=== PATIENT | female | born 1950 | race Caucasian/White ===

== ENCOUNTER 2018-11-26 11:36 | Observation (INO) ==
[2018-11-26 12:22] LABS: Basophils # 0.1 K/mcL (0.0-0.2); Basophils % 0.6 %; Eosinophils % 0.1 %; Hematocrit 42.3 % (35.3-44.9); Hemoglobin 13.8 g/dL (11.5-15.4); Immature Granulocytes % 0.4 % (0-4); Lymphocytes # 0.6 K/mcL (0.6-4.6); Lymphocytes % 7.8 %; Mean Corpuscular HGB Conc 32.6 g/dL (31.6-35.5); Mean Corpuscular Hemoglobin 29.1 pg (28.0-33.3); Mean Corpuscular Volume 89.2 fL (83.0-100.0); Mean Platelet Volume 11.1 fL (9.4-12.4); Monocytes # 0.2 K/mcL (0.0-1.3); Monocytes % 2.2 %; Neutrophils # 7.3 K/mcL (1.6-8.9); Platelet Count 210 K/mcL (140-400); Red Blood Count 4.74 M/mcL (3.82-4.97); Red Cell Distribution Width 12.5 % (11.5-14.5); Segmented Neutrophils % 88.9 %
[2018-11-26 12:29] LABS: VBG HCO3 17 mEq/L (21-27); VBG PCO2 39 mmHg (41-51); VBG PH 7.24 pH Units (7.32-7.42); VBG PO2 49 mmHg (25-50)
[2018-11-26 12:42] LABS: Alanine Aminotransferase 26 Units/L (7-52); Albumin 4.2 g/dL (3.5-5.7); Albumin/Globulin Ratio 1.8 (1.1-2.2); Alkaline Phosphatase 137 Units/L (34-104); Aspartate Amino Transferase 16 Units/L (13-39); BUN/Creatinine Ratio 28 (6-26); Bilirubin,Total 0.7 mg/dL (0.3-1.0); Blood Urea Nitrogen 25 mg/dL (8-23); Calcium 9.5 mg/dL (8.6-10.3); Carbon Dioxide 16 mEq/L (23-29); Chloride 98 mEq/L (98-107); Globulin 2.3 g/dL (2.4-3.5); Glucose 491 mg/dL (70-105); Osmolality,Calculated 302 (280-300); Phosphorous 4.4 mg/dL (2.7-4.5); Potassium 4.4 mEq/L (3.5-5.1); Sodium 133 mEq/L (136-145); Total Protein 6.5 g/dL (6.4-8.9); eGFR For Non-African Americans > 60 (> 60)
--- NOTE | 2018-11-26 12:45 | Emergency Department Note ---
Disposition Clinical Impression: DKA (diabetic ketoacidoses) Qualifiers: Diabetes mellitus type: other specified (including BLU) Diabetes mellitus complication detail: without coma Qualified Code(s): E13.10 - Other specified diabetes mellitus with ketoacidosis without coma Disposition: Admitted As Inpatient Condition: Fair Referrals: Tianna Brown CNP [Primary Care Provider] - Forms: ED Satisfaction Letter Time of Disposition: 16:49 General Adult HPI - General Chief complaint: ED Nausea/Vomiting/Diarrhea Stated complaint: high blood sugar Time Seen by Provider: 11/26/18 11:46 Source: patient, family Mode of arrival: private vehicle Limitations: no limitations Nursing Notes Reviewed: Yes Vital Signs Reviewed: Yes - History of Present Illness HPI Narrative: Patient is a 68-year-old female who was diagnosed with diabetes in 1995 and manages her diabetes with an insulin pump. Patient woke up this morning and noticed that her insulin pump was disconnected as it had become disconnected sometime throughout the night. Patient notes that she felt nauseated and has vomited 3 times since then and when she checked her sugar at home she noted that it was somewhere in the 500s. Patient states that she had a mild upper respiratory infection sometime within the last 2 weeks although she is feeling better she still has a very mild dry cough. Patient is denying any chest pain, shortness of breath, weakness, headache. Patient states that since her diagnosis over 20 years ago she has only had to be hospitalized 3 times for her diabetes.PT STATES SHE IS ALLERGIC TO HUMALOG AND CAN ONLY HAVE NOVOLOG. Pain Scale: 0 - Related Data Home Medications Medication Instructions Recorded Confirmed Insulin ASPART [NovoLOG] 100 unit SQ DAILY 04/22/15 09/04/18 ALPRAZolam [Xanax 0.25 MG Tablet] 0.25 mg PO DAILY PRN 11/26/18 11/26/18 Alendronate Sodium [Fosamax] 70 mg PO WE 11/26/18 11/26/18 Calcium Carbonate/Vitamin D3 1 each PO BID 11/26/18 11/26/18 [Calcium 500 + Vit D 200 Caplet] Cyanocobalamin/Folic AC/Vit B6 1 each PO DAILY 11/26/18 11/26/18 [[place] Tablet] Lisinopril [Zestril] 5 mg PO DAILY 11/26/18 11/26/18 Montelukast [Singulair] 10 mg PO DAILY@1800 11/26/18 11/26/18 Pantoprazole Sodium [Protonix] 20 mg PO DAILY 11/26/18 11/26/18 Simvastatin [Zocor] 40 mg PO HS 11/26/18 11/26/18 Allergies Allergy/AdvReac Type Severity Reaction Status Date / Time cephalexin Allergy Difficulty Verified 09/04/18 17:35 Breathing codeine Allergy Nausea Verified 09/04/18 17:35 egg Allergy Vomiting Verified 09/04/18 17:35 Penicillins Allergy Rash Verified 09/04/18 17:35 insulin lispro AdvReac Rash Verified 11/26/18 13:27 [From Humalog Mix] insulin lispro protamine AdvReac Rash Verified 11/26/18 13:27 [From Humalog Mix] Constitutional: Denies: fever, chills Eyes: Denies: eye pain ENT ED: Denies: ear pain, throat pain Cardiovascular: Denies: chest pain, palpitations Respiratory: Reports: cough. Denies: dyspnea, wheezes Gastrointestinal: Reports: nausea, vomiting. Denies: abdominal pain, diarrhea, constipation Genitourinary: Reports: frequency. Denies: urgency, dysuria Musculoskeletal: Denies: back pain, neck pain Integumentary: Denies: rash, abrasion Neurological: Reports: headache. Denies: weakness, numbness Psychiatric: Denies: anxiety, depression Endocrine: Denies: fatigue, heat or cold intolerance Hematological/Lymphatic: Denies: easy bleeding, easy bruising Allergic/Immunologic: Denies: facial swelling, urticaria Past Medical History - Past Medical History Medical history: Reports: diabetes, hypertension Surgical history: Reports: non-contributory Psychiatric history: Reports: no psych history REGIONAL TELECOMMUNICATIONS SPECIALIST history: Reports: no REGIONAL TELECOMMUNICATIONS SPECIALIST history - Social History Smoking Status: Never smoker Smokeless Tobacco Status: No Alcohol use: Reports: none Drug use: Reports: none Physical Exam - General Limitations: no limitations General appearance: alert, in no apparent distress - Head Head exam: atraumatic, normocephalic - Eye Eye exam: Present: normal appearance, PERRL, EOMI - ENT ENT exam: normal exam, normal oropharynx - Neck Neck exam: Present: normal inspection, full ROM - Chest Chest inspection: Present: normal inspection, symmetric chest wall rise. Absent: tenderness - Respiratory Respiratory exam: Present: normal lung sounds bilaterally, respiratory distress. Absent: wheezes - Cardiovascular Cardiovascular exam: Present: regular rate, normal rhythm - Abdominal Exam Abdominal exam: Present: soft, Non-Tender. Absent: tenderness, distention, guarding, rebound - Extremities Exam Extremities exam: Present: normal inspection, full ROM - Back Exam Back exam: Present: normal inspection, full ROM - Neurological Exam Neurological exam: Present: alert, oriented X3 - Psychiatric Psychiatric exam: Present: normal affect, normal mood - Skin Skin exam: Present: warm, dry, intact Course Course Narrative: Concern for DKA/HHS, will obtain CBC, BMP, beta-hydroxyburtyrate, renal function panel, LFTs, extended electrolytes, will place IV. Suspect admission. - Reevaluation(s) Reevaluation #1: bedside glucose 298. Pt currently receiving IVF, already received oral potassium and zofran. Time: 15:00 Reevaluation #2: After speaking with foot doctor Dr. Armstrong, he did not believe this patient required ICU level care and recommended that she be admitted to step-down on 2N. Spoke again with hospitalist Dr. Sierra who requested that we start an insulin drip, however the patient is allergic to humalog and those derivatives so will defer insulin management to primary team. Did order repeat BMP. Time: 16:47 Vital Signs Temperature 97.8 F 11/26/18 11:40 Pulse Rate 116 11/26/18 11:40 Respiratory Rate 20 11/26/18 11:40 Blood Pressure 180/115 11/26/18 11:40 O2 Sat by Pulse Oximetry 95 11/26/18 11:40 Temperature 97.8 F 11/26/18 11:40 Pulse Rate 77 11/26/18 15:20 Respiratory Rate 17 11/26/18 15:20 Blood Pressure 121/52 11/26/18 15:20 O2 Sat by Pulse Oximetry 93 11/26/18 15:20 Oxygen Delivery Oxygen Delivery Room Air Medical Decision Making - MDM Narrative Medical decision making narrative: Pt initially presented with blood sugar 530 measured bedside and VBG measured pH 7.24 with BMP showing anion gap of 19. Pt was started on 2L NaCl and given 40mEq of oral potassium and repeat BMP ordered. Initial potassium was 4.4 and insulin drip requires potassium of >4.5. Spoke with hospitalist who wanted ICU level care. Spoke with foot doctor Dr. Armstrong who did not believe this patient required ICU level care and suggested step-down unit. Spoke again with hospitalist Dr Sierra who agreed to take the patient but wanted an insulin drip started, declined insulin drip but did order repeat BMP. Please note, pt is allergic to humalog insulin and our insulin drip contains humalog. Spoke with patient and family at bedside who verbalized understanding and agreement with the plan. Pt was given an opportunity to ask questions and all of her concerns were addressed. Pt remained stable while in the department, talkative, with appropriate mental status. - Medical Records Medical records reviewed: Yes I reviewed the patient's medical records. - Lab Data Lab results reviewed: Yes I reviewed the patient's lab results. Result diagrams: 11/26/18 12:13 11/26/18 12:13 Lab Results 11/26/18 11/26/18 11/26/18 Range/Units 12:13 12:13 12:13 WBC 8.2 (4.3-11.1) K/mcL RBC 4.74 (3.82-4.97) M/mcL Hgb 13.8 (11.5-15.4) g/dL Hct 42.3 (35.3-44.9) % MCV 89.2 (83.0-100.0) fL MCH 29.1 (28.0-33.3) pg MCHC 32.6 (31.6-35.5) g/dL RDW 12.5 (11.5-14.5) % Plt Count 210 (140-400) K/mcL MPV 11.1 (9.4-12.4) fL Immature Gran % 0.4 (0-4) % Seg Neutrophils % 88.9 % Lymphocytes % 7.8 % Monocytes % 2.2 % Eosinophils % 0.1 % Basophils % 0.6 % Neutrophils # 7.3 (1.6-8.9) K/mcL Lymphocytes # 0.6 (0.6-4.6) K/mcL Monocytes # 0.2 (0.0-1.3) K/mcL Eosinophils # 0.0 (0.0-0.6) K/mcL Basophils # 0.1 (0.0-0.2) K/mcL VBG pH (7.32-7.42) pH Units VBG pCO2 (41-51) mmHg VBG pO2 (25-50) mmHg VBG HCO3 (21-27) mEq/L Sodium 133 L (136-145) mEq/L Potassium 4.4 (3.5-5.1) mEq/L Chloride 98 (98-107) mEq/L Carbon Dioxide 16 L (23-29) mEq/L BUN 25 H (8-23) mg/dL Creatinine 0.89 (0.60-1.20) mg/dL Est GFR ( Amer) > 60 (> 60) Est GFR (Non-Af Amer) > 60 (> 60) BUN/Creatinine Ratio 28 H (6-26) Glucose 491 H (70-105) mg/dL Calculated Osmolality 302 H (280-300) Lactic Acid 2.2 (0.5-2.2) mmol/L Calcium 9.5 (8.6-10.3) mg/dL Phosphorus 4.4 (2.7-4.5) mg/dL Magnesium 2.0 (1.6-2.6) mg/dL Total Bilirubin 0.7 (0.3-1.0) mg/dL AST 16 (13-39) Units/L ALT 26 (7-52) Units/L Alkaline Phosphatase 137 H (34-104) Units/L Serum Total Protein 6.5 (6.4-8.9) g/dL Albumin 4.2 (3.5-5.7) g/dL Globulin 2.3 L (2.4-3.5) g/dL Albumin/Globulin Ratio 1.8 (1.1-2.2) Beta-Hydroxybutyric Acd (0.02-0.27) mmol/L Urine Color (Yellow) Urine Clarity (Clear) Urine pH (5.0-8.0) pH Units Ur Specific [place] (1.010-1.025) Urine Protein (Neg-Trace) mg/dL Urine Glucose (UA) (Normal) mg/dL Urine Ketones (Negative) mg/dL Urine Blood (Negative) Urine Nitrite (Negative) Urine Bilirubin (Negative) Urine Urobilinogen (Normal) mg/dL Ur Leukocyte Esterase (Negative) 11/26/18 11/26/18 11/26/18 Range/Units 12:13 12:25 15:40 WBC (4.3-11.1) K/mcL RBC (3.82-4.97) M/mcL Hgb (11.5-15.4) g/dL Hct (35.3-44.9) % MCV (83.0-100.0) fL MCH (28.0-33.3) pg MCHC (31.6-35.5) g/dL RDW (11.5-14.5) % Plt Count (140-400) K/mcL MPV (9.4-12.4) fL Immature Gran % (0-4) % Seg Neutrophils % % Lymphocytes % % Monocytes % % Eosinophils % % Basophils % % Neutrophils # (1.6-8.9) K/mcL Lymphocytes # (0.6-4.6) K/mcL Monocytes # (0.0-1.3) K/mcL Eosinophils # (0.0-0.6) K/mcL Basophils # (0.0-0.2) K/mcL VBG pH 7.24 L (7.32-7.42) pH Units VBG pCO2 39 L (41-51) mmHg VBG pO2 49 (25-50) mmHg VBG HCO3 17 L (21-27) mEq/L Sodium (136-145) mEq/L Potassium (3.5-5.1) mEq/L Chloride (98-107) mEq/L Carbon Dioxide (23-29) mEq/L BUN (8-23) mg/dL Creatinine (0.60-1.20) mg/dL Est GFR ( Amer) (> 60) Est GFR (Non-Af Amer) (> 60) BUN/Creatinine Ratio (6-26) Glucose (70-105) mg/dL Calculated Osmolality (280-300) Lactic Acid (0.5-2.2) mmol/L Calcium (8.6-10.3) mg/dL Phosphorus (2.7-4.5) mg/dL Magnesium (1.6-2.6) mg/dL Total Bilirubin (0.3-1.0) mg/dL AST (13-39) Units/L ALT (7-52) Units/L Alkaline Phosphatase (34-104) Units/L Serum Total Protein (6.4-8.9) g/dL Albumin (3.5-5.7) g/dL Globulin (2.4-3.5) g/dL Albumin/Globulin Ratio (1.1-2.2) Beta-Hydroxybutyric Acd > 2.00 H (0.02-0.27) mmol/L Urine Color Yellow (Yellow) Urine Clarity Clear (Clear) Urine pH 5.0 (5.0-8.0) pH Units Ur Specific [place] > 1.030 H (1.010-1.025) Urine Protein Trace (Neg-Trace) mg/dL Urine Glucose (UA) >=1000 H (Normal) mg/dL Urine Ketones >=160 H (Negative) mg/dL Urine Blood Negative (Negative) Urine Nitrite Negative (Negative) Urine Bilirubin Negative (Negative) Urine Urobilinogen Normal (Normal) mg/dL Ur Leukocyte Esterase Negative (Negative) 11/26/18 Range/Units 15:54 WBC (4.3-11.1) K/mcL RBC (3.82-4.97) M/mcL Hgb (11.5-15.4) g/dL Hct (35.3-44.9) % MCV (83.0-100.0) fL MCH (28.0-33.3) pg MCHC (31.6-35.5) g/dL RDW (11.5-14.5) % Plt Count (140-400) K/mcL MPV (9.4-12.4) fL Immature Gran % (0-4) % Seg Neutrophils % % Lymphocytes % % Monocytes % % Eosinophils % % Basophils % % Neutrophils # (1.6-8.9) K/mcL Lymphocytes # (0.6-4.6) K/mcL Monocytes # (0.0-1.3) K/mcL Eosinophils # (0.0-0.6) K/mcL Basophils # (0.0-0.2) K/mcL VBG pH (7.32-7.42) pH Units VBG pCO2 (41-51) mmHg VBG pO2 (25-50) mmHg VBG HCO3 (21-27) mEq/L Sodium (136-145) mEq/L Potassium (3.5-5.1) mEq/L Chloride (98-107) mEq/L Carbon Dioxide (23-29) mEq/L BUN (8-23) mg/dL Creatinine (0.60-1.20) mg/dL Est GFR ( Amer) (> 60) Est GFR (Non-Af Amer) (> 60) BUN/Creatinine Ratio (6-26) Glucose (70-105) mg/dL Calculated Osmolality (280-300) Lactic Acid 1.8 (0.5-2.2) mmol/L Calcium (8.6-10.3) mg/dL Phosphorus (2.7-4.5) mg/dL Magnesium (1.6-2.6) mg/dL Total Bilirubin (0.3-1.0) mg/dL AST (13-39) Units/L ALT (7-52) Units/L Alkaline Phosphatase (34-104) Units/L Serum Total Protein (6.4-8.9) g/dL Albumin (3.5-5.7) g/dL Globulin (2.4-3.5) g/dL Albumin/Globulin Ratio (1.1-2.2) Beta-Hydroxybutyric Acd (0.02-0.27) mmol/L Urine Color (Yellow) Urine Clarity (Clear) Urine pH (5.0-8.0) pH Units Ur Specific [place] (1.010-1.025) Urine Protein (Neg-Trace) mg/dL Urine Glucose (UA) (Normal) mg/dL Urine Ketones (Negative) mg/dL Urine Blood (Negative) Urine Nitrite (Negative) Urine Bilirubin (Negative) Urine Urobilinogen (Normal) mg/dL Ur Leukocyte Esterase (Negative)
--- NOTE | 2018-11-26 12:53 | Emergency Department Note ---
Disposition Clinical Impression: DKA (diabetic ketoacidoses) Qualifiers: Diabetes mellitus type: type 1 Diabetes mellitus complication detail: without coma Qualified Code(s): E10.10 - Type 1 diabetes mellitus with ketoacidosis without coma Disposition: Admitted As Inpatient Condition: Good Referrals: Tianna Brown CNP [Primary Care Provider] - Forms: ED Satisfaction Letter General Adult HPI - General Chief complaint: ED Nausea/Vomiting/Diarrhea Stated complaint: high blood sugar Time Seen by Provider: 11/26/18 11:46 Source: patient, family Mode of arrival: private vehicle Limitations: no limitations Nursing Notes Reviewed: Yes Vital Signs Reviewed: Yes - History of Present Illness HPI Narrative: Attestation note: Patient was seen with the emergency medicine resident/nurse practitioner/physician program services assistant/transitional resident/medical student: Dr. YUAN STINSON I have personally performed a face to face evaluation on this patient. I have reviewed and agree with history and physical examination patient management and disposition. Briefly the salient points of the case are as follows: 68-year-old female insulin-dependent diabetic usually is no insulin pump became disconnected last night has been feeling poorly for the past few days dry oral mucosa. Some vo miting no fever or chills or dysuria no new shortness breath or chest pain. Patient had laboratory studies confirming the presence of diabetic ketoacidosis Of 19, pH of the broad of 7.29. Patient will undergo DKA management with IV fluid rehydration and potassium supplementation insulin drip at the appropriate time and admission. Provided 45 minutes of critical care for this patient. Pain Scale: 0 - Related Data Home Medications Medication Instructions Recorded Confirmed Insulin ASPART [NovoLOG] 100 unit SQ DAILY 04/22/15 09/04/18 Omeprazole [PriLOSEC] 20 mg PO DAILY 08/17/16 09/04/18 Simvastatin [Zocor] 10 mg PO DAILY 08/19/18 09/04/18 Previous Rx's Medication Instructions Recorded Albuterol Sulfate [Albuterol 2 puff IH QID #1 inhaler 09/04/18 Inhaler] Benzonatate [Tessalon] 200 mg PO TID PRN #20 capsule 09/04/18 Levofloxacin [Levaquin] 750 mg PO DAILY #7 tablet 09/04/18 predniSONE [PredniSONE] 20 mg PO BID #10 tablet 09/04/18 Allergies Allergy/AdvReac Type Severity Reaction Status Date / Time cephalexin Allergy Difficulty Verified 09/04/18 17:35 Breathing codeine Allergy Nausea Verified 09/04/18 17:35 egg Allergy Vomiting Verified 09/04/18 17:35 Penicillins Allergy Rash Verified 09/04/18 17:35 Constitutional: Denies: fever, chills Eyes: Denies: eye pain ENT ED: Denies: ear pain, throat pain Cardiovascular: Denies: chest pain, palpitations Respiratory: Reports: cough. Denies: dyspnea, wheezes Gastrointestinal: Reports: nausea, vomiting. Denies: abdominal pain, diarrhea, constipation Genitourinary: Reports: frequency. Denies: urgency, dysuria Musculoskeletal: Denies: back pain, neck pain Integumentary: Denies: rash, abrasion Neurological: Reports: headache. Denies: weakness, numbness Psychiatric: Denies: anxiety, depression Endocrine: Denies: fatigue, heat or cold intolerance Hematological/Lymphatic: Denies: easy bleeding, easy bruising Allergic/Immunologic: Denies: facial swelling, urticaria Past Medical History - Past Medical History Medical history: Reports: diabetes, hypertension Surgical history: Reports: non-contributory Psychiatric history: Reports: no psych history DENTAL DIRECTOR history: Reports: no DENTAL DIRECTOR history - Social History Smoking Status: Never smoker Smokeless Tobacco Status: No Alcohol use: Reports: none Drug use: Reports: none Physical Exam - General Limitations: no limitations General appearance: alert, in no apparent distress Course Vital Signs Temperature 97.8 F 11/26/18 11:40 Pulse Rate 116 11/26/18 11:40 Respiratory Rate 20 11/26/18 11:40 Blood Pressure 180/115 11/26/18 11:40 O2 Sat by Pulse Oximetry 95 11/26/18 11:40 Temperature 97.8 F 11/26/18 11:40 Pulse Rate 116 11/26/18 11:40 Respiratory Rate 20 11/26/18 11:40 Blood Pressure 180/115 11/26/18 11:40 O2 Sat by Pulse Oximetry 95 11/26/18 11:40 Oxygen Delivery Oxygen Delivery Room Air Medical Decision Making - Lab Data Result diagrams: 11/26/18 12:13 11/26/18 12:13 Lab Results 11/26/18 11/26/18 11/26/18 Range/Units 12:13 12:13 12:13 WBC 8.2 (4.3-11.1) K/mcL RBC 4.74 (3.82-4.97) M/mcL Hgb 13.8 (11.5-15.4) g/dL Hct 42.3 (35.3-44.9) % MCV 89.2 (83.0-100.0) fL MCH 29.1 (28.0-33.3) pg MCHC 32.6 (31.6-35.5) g/dL RDW 12.5 (11.5-14.5) % Plt Count 210 (140-400) K/mcL MPV 11.1 (9.4-12.4) fL Immature Gran % 0.4 (0-4) % Seg Neutrophils % 88.9 % Lymphocytes % 7.8 % Monocytes % 2.2 % Eosinophils % 0.1 % Basophils % 0.6 % Neutrophils # 7.3 (1.6-8.9) K/mcL Lymphocytes # 0.6 (0.6-4.6) K/mcL Monocytes # 0.2 (0.0-1.3) K/mcL Eosinophils # 0.0 (0.0-0.6) K/mcL Basophils # 0.1 (0.0-0.2) K/mcL VBG pH (7.32-7.42) pH Units VBG pCO2 (41-51) mmHg VBG pO2 (25-50) mmHg VBG HCO3 (21-27) mEq/L Sodium 133 L (136-145) mEq/L Potassium 4.4 (3.5-5.1) mEq/L Chloride 98 (98-107) mEq/L Carbon Dioxide 16 L (23-29) mEq/L BUN 25 H (8-23) mg/dL Creatinine 0.89 (0.60-1.20) mg/dL Est GFR ( Amer) > 60 (> 60) Est GFR (Non-Af Amer) > 60 (> 60) BUN/Creatinine Ratio 28 H (6-26) Glucose 491 H (70-105) mg/dL Calculated Osmolality 302 H (280-300) Lactic Acid 2.2 (0.5-2.2) mmol/L Calcium 9.5 (8.6-10.3) mg/dL Phosphorus 4.4 (2.7-4.5) mg/dL Magnesium 2.0 (1.6-2.6) mg/dL Total Bilirubin 0.7 (0.3-1.0) mg/dL AST 16 (13-39) Units/L ALT 26 (7-52) Units/L Alkaline Phosphatase 137 H (34-104) Units/L Serum Total Protein 6.5 (6.4-8.9) g/dL Albumin 4.2 (3.5-5.7) g/dL Globulin 2.3 L (2.4-3.5) g/dL Albumin/Globulin Ratio 1.8 (1.1-2.2) Beta-Hydroxybutyric Acd (0.02-0.27) mmol/L 11/26/18 11/26/18 Range/Units 12:13 12:25 WBC (4.3-11.1) K/mcL RBC (3.82-4.97) M/mcL Hgb (11.5-15.4) g/dL Hct (35.3-44.9) % MCV (83.0-100.0) fL MCH (28.0-33.3) pg MCHC (31.6-35.5) g/dL RDW (11.5-14.5) % Plt Count (140-400) K/mcL MPV (9.4-12.4) fL Immature Gran % (0-4) % Seg Neutrophils % % Lymphocytes % % Monocytes % % Eosinophils % % Basophils % % Neutrophils # (1.6-8.9) K/mcL Lymphocytes # (0.6-4.6) K/mcL Monocytes # (0.0-1.3) K/mcL Eosinophils # (0.0-0.6) K/mcL Basophils # (0.0-0.2) K/mcL VBG pH 7.24 L (7.32-7.42) pH Units VBG pCO2 39 L (41-51) mmHg VBG pO2 49 (25-50) mmHg VBG HCO3 17 L (21-27) mEq/L Sodium (136-145) mEq/L Potassium (3.5-5.1) mEq/L Chloride (98-107) mEq/L Carbon Dioxide (23-29) mEq/L BUN (8-23) mg/dL Creatinine (0.60-1.20) mg/dL Est GFR ( Amer) (> 60) Est GFR (Non-Af Amer) (> 60) BUN/Creatinine Ratio (6-26) Glucose (70-105) mg/dL Calculated Osmolality (280-300) Lactic Acid (0.5-2.2) mmol/L Calcium (8.6-10.3) mg/dL Phosphorus (2.7-4.5) mg/dL Magnesium (1.6-2.6) mg/dL Total Bilirubin (0.3-1.0) mg/dL AST (13-39) Units/L ALT (7-52) Units/L Alkaline Phosphatase (34-104) Units/L Serum Total Protein (6.4-8.9) g/dL Albumin (3.5-5.7) g/dL Globulin (2.4-3.5) g/dL Albumin/Globulin Ratio (1.1-2.2) Beta-Hydroxybutyric Acd > 2.00 H (0.02-0.27) mmol/L
[2018-11-26] MEDS ORDERED: Ondansetron ODT 4 MG TAB.RAPDIS SL ONE (12:54)
[2018-11-26] MEDS ORDERED: Potassium Effervescent 25 MEQ TABLET.EFF PO ONE (12:55)
[2018-11-26] MEDS: 0.9 % Sodium Chloride 1,000 ML IVC SCH ×2 (13:34→15:19)
[2018-11-26 16:01] LABS: Bilirubin,Urine Negative (Negative); Blood,Urine Negative (Negative); Clarity,Urine Clear (Clear); Color,Urine Yellow (Yellow); Glucose,Urine (UA) >=1000 mg/dL (Normal); Ketones,Urine >=160 mg/dL (Negative); Leukocyte Esterase,Urine Negative (Negative); Nitrite,Urine Negative (Negative); Protein,Urine Trace mg/dL (Neg-Trace); Specific Gravity,Urine > 1.030 (1.010-1.025); Urobilinogen,Urine Normal (Normal)
[2018-11-26] MEDS ORDERED: Naloxone 0.4 MG/ML INJ IVP PRN (17:25)
[2018-11-26] MEDS ORDERED: Ondansetron ODT 4 MG TAB.RAPDIS SL PRN (17:25)
[2018-11-26] MEDS ORDERED: Acetaminophen 325 MG TABLET PO PRN (17:25)
[2018-11-26] MEDS ORDERED: *HR* Dextrose 50 % in Water (Syg) 50 ML SYRINGE IVP PRN ×2 (17:27→17:56)
[2018-11-26] MEDS ORDERED: D5% in 0.45% NACL w KCl 20 MEQ/1,000 ML MLS IVC PRN (17:27)
[2018-11-26] MEDS ORDERED: Insulin Regular, Human 100 UNIT/ML IV PRN ×2 (17:27→22:27)
[2018-11-26] MEDS ORDERED: Insulin Human Regular 100 UNIT in 0.9 % Sodium Chloride 100 ML IVC SCH (17:30)
[2018-11-26] MEDS ORDERED: 0.9 % Sodium Chloride w KCl 20 MEQ/1,000 ML MLS IVC SCH (17:30)
[2018-11-26] MEDS ORDERED: ALPRAZolam 0.25 MG TABLET PO PRN (17:30)
[2018-11-26] MEDS ORDERED: 0.9 % Sodium Chloride 1,000 ML IVC SCH (17:30)
[2018-11-26 17:34] LABS: BUN/Creatinine Ratio 30 (6-26); Blood Urea Nitrogen 20 mg/dL (8-23); Calcium 8.6 mg/dL (8.6-10.3); Carbon Dioxide 22 mEq/L (23-29); Chloride 107 mEq/L (98-107); Glucose 188 mg/dL (70-105); Osmolality,Calculated 292 (280-300); Potassium 4.5 mEq/L (3.5-5.1); Sodium 137 mEq/L (136-145); eGFR For Non-African Americans > 60 (> 60)
--- NOTE | 2018-11-26 17:39 | Internal Med History&Physical ---
<Guerda Petersen M - Last Filed: 11/26/18 18:32> Date of Encounter: 11/26/18 Time of Encounter: 17:33 Internal Medicine - H&P: HPI Chief complaint: elayne Admitted From: Home Plans for Post Hospital Care: Home History of present illness: Ms. Greenwood is a 68 year old female is type 1 DM presents for nausea and vomiting after she awoke to find insulin pump disconnected and blood gluoce near 600 . She reports malaise and nausea thus gave herself insulin injection and improved. Later in day nausea became worse and vomited but denies abdominal pain. She tried to fix insulin pump herself and when unable called PCP who instructed her to present to ED. Denies associated symptoms of confusion, dizziness, syncope or thirst. She is hungry and request food. On presentation to ED afebrile, tachycardia 116 resolved to 86, tachynea 20 to 16, and 180/50 to 120/52 with more stable vitals on recheck. Found to be hyp onatremia 113, CO2 16, Potassium 2.2, and Glucose 491. Elevated beta hydrpbutyric acid greater than 2 and VBG with ph of 7.24. UA with positive glucose and ketones. Lactic acid 2.2 to 1.8. Essentially normal CBC. Received one liter bolus IVF and potassium 25 meq. She follows with [facility]- patient reports allergic reaction to Humalog (lispro) of rash, nausea and vomiting instructed by PCP not to take but regularlly uses Novolong(aspart) - she doesn't remember ever using humilin. PMHx of asthma and GERD. One EMANUEL of renal protection but reports no history of HTN. Family Hx of CHF in father who was just discharged from [facility] today. Recent illness of PNA treated with abx in October but reports symptoms resolved with out shortness of breath and cough at baseline with occasional coughing fits at night. Per review of record out patient patient requires average of 40 u apart per day with pump and is non adherent to diet Past Med Surg Social Fam HX - Past Medical History Medical history: diabetes, hypertension Additional medical history: carpel tunnel surgery needs done but A1C too high Psychiatric history: no psych history - Past Surgical History Surgical History: non-contributory - Social History Smoking Status: Never smoker Smokeless Tobacco Status: No Alcohol use: none Drug use: none Internal Medicine - H&P: Meds Insulin ASPART [NovoLOG] 0 unit SQ DAILY 04/22/15 [History] ALPRAZolam [Xanax 0.25 MG Tablet] 0.25 mg PO DAILY PRN 11/26/18 [History] Alendronate Sodium [Fosamax] 70 mg PO WE 11/26/18 [History] Calcium Carbonate/Vitamin D3 [Calcium 500 + Vit D 200 Caplet] 1 each PO BID 11/26/18 [History] Cyanocobalamin/Folic AC/Vit B6 [Folbee Tablet] 1 each PO DAILY 11/26/18 [History] Montelukast [Singulair] 10 mg PO DAILY@1800 11/26/18 [History] Pantoprazole Sodium [Protonix] 20 mg PO DAILY 11/26/18 [History] RX: Lisinopril [Zestril] 5 mg PO DAILY 11/26/18 [History] Simvastatin [Zocor] 40 mg PO HS 11/26/18 [History] Allergy/AdvReac Type Severity Reaction Status Date / Time cephalexin Allergy Difficulty Verified 09/04/18 17:35 Breathing codeine Allergy Nausea Verified 09/04/18 17:35 egg Allergy Vomiting Verified 09/04/18 17:35 Penicillins Allergy Rash Verified 09/04/18 17:35 insulin lispro AdvReac Rash Verified 11/26/18 13:27 [From Humalog Mix] insulin lispro protamine AdvReac Rash Verified 11/26/18 13:27 [From Humalog Mix] All Systems PM: A 10-system review of systems was performed and is negative for pertinent findings except as documented above in the HPI. - Constitutional Constitutional: as per HPI, fatigue, malaise, no fever(s) - Constitutional Vitals: Temp Pulse Resp BP Pulse Ox 97.8 F 77 17 121/52 93 11/26/18 11:40 11/26/18 15:20 11/26/18 15:20 11/26/18 15:20 11/26/18 15:20 General appearance: Present: cooperative, A&O X 3, pleasant, no acute distress, answers questions appropriately Exam: Patient sitting comfortably in bed with family surrounding - Head Head exam: Present: atraumatic, normal inspection, normocephalic - Eye Eye exam: Present: EOMI, PERRL. Absent: scleral icterus - ENT ENT exam: Present: mucous membranes dry, normal external ear exam, normal oropharynx - Respiratory Respiratory exam: Present: wheezes (minor upper lobes). Absent: accessory muscle use, respiratory distress - Cardiovascular Cardiovascular exam: Present: RRR, systolic murmur. Absent: distant heart sounds - GI/Abdominal GI/Abdominal exam: Present: normal bowel sounds, soft. Absent: guarding, tenderness - Extremities Exam Extremities exam: Present: full ROM, radial pulses palpable and symmetrical. Absent: pedal edema, tenderness - Back Exam Back exam: Present: full ROM. Absent: rash noted, tenderness - Neurological Exam Neurological exam: Present: alert, oriented X3, no focal deficits. Absent: facial droop, speech deficit - Psychiatric Psychiatric exam: Present: normal affect, normal mood. Absent: anxious - Skin Skin exam: Present: normal color. Absent: diaphoretic, erythema, rash Internal Med - H&P Results - Labs CBC & Chem 7: 11/26/18 12:13 11/26/18 16:54 Labs: Short CBC 11/26/18 Range/Units 12:13 WBC 8.2 (4.3-11.1) K/mcL Hgb 13.8 (11.5-15.4) g/dL Hct 42.3 (35.3-44.9) % Plt Count 210 (140-400) K/mcL Neutrophils # 7.3 (1.6-8.9) K/mcL BMP 11/26/18 12:13 Sodium 133 L Potassium 4.4 Chloride 98 Carbon Dioxide 16 L BUN 25 H Creatinine 0.89 Glucose 491 H Calcium 9.5 Liver Function 11/26/18 Range/Units 12:13 Total Bilirubin 0.7 (0.3-1.0) mg/dL AST 16 (13-39) Units/L ALT 26 (7-52) Units/L Alkaline Phosphatase 137 H (34-104) Units/L Albumin 4.2 (3.5-5.7) g/dL Urine 11/26/18 Range/Units 15:40 Urine Color Yellow (Yellow) Urine Clarity Clear (Clear) Urine pH 5.0 (5.0-8.0) pH Units Ur Specific [place] > 1.030 H (1.010-1.025) Urine Protein Trace (Neg-Trace) mg/dL Urine Glucose (UA) >=1000 H (Normal) mg/dL - ABG Interpretation ABG results: 11/26/18 12:25 VBG pH 7.24 L VBG pCO2 39 L VBG pO2 49 VBG HCO3 17 L - Assessment and Plan (1) DKA (diabetic ketoacidoses) Current Visit: Yes Status: Resolved Assessment and plan: DM type one presented with isulin pump malfunction with hyperglyemia 530 on presentation with Betahydrobuteric acid elevated above 2 and GAP around 19. Expected hyponatremia 133 due to hyperglyemia . 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 for recommendations and out patient follow up Qualifiers: Diabetes mellitus type: other specified (including BLU) Diabetes mellitus complication detail: without coma Qualified Code(s): E13.10 - Other specified diabetes mellitus with ketoacidosis without coma (2) Diabetes mellitus Current Visit: Yes Status: Chronic Assessment and plan: see above - continue lisinopril for renal protective Qualifiers: Diabetes mellitus type: type 1 Diabetes mellitus complication status: with hyperglycemia Qualified Code(s): E10.65 - Type 1 diabetes mellitus with hyperglycemia (3) Asthma Current Visit: Yes Status: Chronic Assessment and plan: Chronic, stable with out signs of acute exacerbation but still recovering from PNA - albuterol inhaler prn - continue home montelukast Qualifiers: Asthma severity: mild Asthma persistence: intermittent Asthma complicat ion type: uncomplicated Qualified Code(s): J45.20 - Mild intermittent asthma, uncomplicated (4) SIRS without infection or organ dysfunction Current Visit: Yes Status: Resolved Assessment and plan: Patient technically meet SIRs criteria on presentation but not sepsis as no infectious source - more likely due to DKA. Lactic acid normal 1.8 Her vitals on admission do not meet SIRs criteria - continue to monitor clinical and review vitals - total 2 L IVF (5) GERD (gastroesophageal reflux disease) Current Visit: Yes Status: Chronic Assessment and plan: GERD chronic and stable - may substitute pantraprazole - tums prn Qualifiers: Esophagitis presence: esophagitis presence not specified Qualified Code(s): K21.9 - Gastro-esophageal reflux disease without esophagitis (6) DVT prophylaxis Current Visit: Yes Status: Acute Assessment and plan: heparin sq - Time Spent With Patient Total time spent is greater than 50% in coordination of care (as documented) at patient's floor/unit and/or counseling patient: <Goran Otero - Last Filed: 11/26/18 19:04> Date of Encounter: 11/26/18 Internal Medicine - H&P: HPI History of present illness: Ms. Greenwood is a 68 year old female Past Med Surg Social Fam HX - Family History Mother Hx Family Respiratory Disorders: Yes All Systems PM: A 10-system review of systems was performed and is negative for pertinent findings except as documented above in the HPI. - Constitutional Vitals: Temp Pulse Resp BP Pulse Ox 97.8 F 77 16 131/60 93 11/26/18 11:40 11/26/18 15:20 11/26/18 18:04 11/26/18 18:04 11/26/18 15:20 Internal Med - H&P Results - Labs CBC & Chem 7: 11/26/18 12:13 11/26/18 16:54 Labs: Short CBC 11/26/18 Range/Units 12:13 WBC 8.2 (4.3-11.1) K/mcL Hgb 13.8 (11.5-15.4) g/dL Hct 42.3 (35.3-44.9) % Plt Count 210 (140-400) K/mcL Neutrophils # 7.3 (1.6-8.9) K/mcL BMP 11/26/18 11/26/18 12:13 16:54 Sodium 133 L 137 Potassium 4.4 4.5 Chloride 98 107 Carbon Dioxide 16 L 22 L BUN 25 H 20 Creatinine 0.89 0.66 Glucose 491 H 188 H Calcium 9.5 8.6 Liver Function 11/26/18 Range/Units 12:13 Total Bilirubin 0.7 (0.3-1.0) mg/dL AST 16 (13-39) Units/L ALT 26 (7-52) Units/L Alkaline Phosphatase 137 H (34-104) Units/L Albumin 4.2 (3.5-5.7) g/dL Urine 11/26/18 Range/Units 15:40 Urine Color Yellow (Yellow) Urine Clarity Clear (Clear) Urine pH 5.0 (5.0-8.0) pH Units Ur Specific [place] > 1.030 H (1.010-1.025) Urine Protein Trace (Neg-Trace) mg/dL Urine Glucose (UA) >=1000 H (Normal) mg/dL - ABG Interpretation ABG results: 11/26/18 12:25 VBG pH 7.24 L VBG pCO2 39 L VBG pO2 49 VBG HCO3 17 L - Assessment and Plan (1) DKA (diabetic ketoacidoses) Current Visit: Yes Status: Resolved Qualifiers: Diabetes mellitus type: other specified (including BLU) Diabetes mellitus complication detail: without coma Qualified Code(s): E13.10 - Other specified diabetes mellitus with ketoacidosis without coma (2) Diabetes mellitus Current Visit: Yes Status: Chronic Qualifiers: Diabetes mellitus type: type 1 Diabetes mellitus complication status: with hyperglycemia Qualified Code(s): E10.65 - Type 1 diabetes mellitus with hyperglycemia (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: Yes Status: Chronic (4) Asthma Current Visit: Yes Status: Chronic Qualifiers: Asthma severity: mild Asthma persistence: intermittent Asthma complication type: uncomplicated Qualified Code(s): J45.20 - Mild intermittent asthma, uncomplicated (5) GERD (gastroesophageal reflux disease) Current Visit: Yes Status: Chronic Qualifiers: Esophagitis presence: esophagitis presence not specified Qualified Code(s): K21.9 - Gastro-esophageal reflux disease without esophagitis - Time Spent With Patient Total time spent is greater than 50% in coordination of care (as documented) at patient's floor/unit and/or counseling patient: - Attending Attestation I examined this patient and my medical decision-making was reviewed with the Resident Physician on 11/26/18. I agree with the documented findings, disposition and treatment plan as described except to the extent set forth below. Ms Greenwood is 68y/o female with hx of insulin req DM - uses insulin pump - presented to ED with nausea/ vomiting and hyperglycemia. She stated her pump came disconnected during the night and when she awoke she felt ill and her sugar was greater than 600. She gave herself additional insulin and things improved but recurred. She did change all the tubing of her pump. In ED she was found in DKA. She was given IV fluids and pump was continued running. She improved quickly and was placed in observation. At this time she is feeling OK and eating dinner. Denies chest pain or recent illness (pneumonia 1 month ago). Exam alert Comfortable Mucus membranes dry Heart reg and not tachy Scattered rales R base. No wheeze abd nontender Moves all extremities No edema I/P 1. DKA - quickly resolved. Monitor overnight and cover blood sugar. If stable anticipate d/c tomorrow. 2. DM 3. HTN - continue home meds 4. Dehydration resolved 5. Asthma - stable 6. SIRS - noninfectious. Resolved. Further diagnoses and plan as above.
[2018-11-26] MEDS ORDERED: D5% in Water 1,000 ML IVC PRN (17:56)
[2018-11-26] MEDS ORDERED: Dextrose Gel 15 GM/37.5 ML TUBE PO PRN ×2 (17:56)
[2018-11-26] MEDS: Insulin Regular, Human 100 UNIT/ML SQ SCH ×2 (18:34→23:30)
[2018-11-26] MEDS: Insulin DETEMIR 100 UNIT/ML X5UNITS SQ SCH (18:50)
[2018-11-27] MEDS ORDERED: Insulin Regular, Human 100 UNIT/ML SQ SCH ×3 (03:00→06:30)
[2018-11-27 04:25] LABS: Magnesium 1.9 mg/dL (1.6-2.6); Phosphorous 2.7 mg/dL (2.7-4.5)
[2018-11-27] MEDS: *HR* Heparin 5,000 UNIT/ML VIAL SQ SCH ×2 (06:32→18:00)
[2018-11-27] MEDS: Insulin Regular, Human 100 UNIT/ML SQ SCH ×5 (09:07→20:35)
--- NOTE | 2018-11-27 09:31 | Discharge Summary ---
Orders not resulted at time of discharge: Pending orders 11/26/18 18:12 EKG [ECG 12 lead ECG] [ECG] Routine Date of Encounter: 11/27/18 Time of Encounter: 09:30 - Discharge Diagnosis (1) DKA (diabetic ketoacidoses) Status: Resolved Qualifiers: Diabetes mellitus type: other specified (including BLU) Diabetes mellitus complication detail: without coma Qualified Code(s): E13.10 - Other specified diabetes mellitus with ketoacidosis without coma (2) Diabetes mellitus Status: Chronic Qualifiers: Diabetes mellitus type: type 1 Diabetes mellitus complication status: with hyperglycemia Qualified Code(s): E10.65 - Type 1 diabetes mellitus with hyperglycemia (3) Asthma Status: Chronic Qualifiers: Asthma severity: mild Asthma persistence: intermittent Asthma complication type: uncomplicated Qualified Code(s): J45.20 - Mild intermittent asthma, uncomplicated (4) SIRS without infection or organ dysfunction Status: Resolved (5) GERD (gastroesophageal reflux disease) Status: Chronic Qualifiers: Esophagitis presence: esophagitis presence not specified Qualified Code(s): K21.9 - Gastro-esophageal reflux disease without esophagitis (6) DVT prophylaxis Status: Acute Hospital course: Ms. Greenwood is a 68 year old female - Time Spent with Patient Total time spent providing and/or coordinating discharge services: - Discharge Medications Prescriptions: No Action Insulin ASPART [NovoLOG] 0 unit SQ DAILY Alendronate Sodium [Fosamax] 70 mg PO WE ALPRAZolam [Xanax 0.25 MG Tablet] 0.25 mg PO DAILY PRN PRN Reason: Anxiety Calcium Carbonate/Vitamin D3 [Calcium 500 + Vit D 200 Caplet] 1 each PO BID Cyanocobalamin/Folic AC/Vit B6 [Folbee Tablet] 1 each PO DAILY Lisinopril [Zestril] 5 mg PO DAILY Montelukast [Singulair] 10 mg PO DAILY@1800 Pantoprazole Sodium [Protonix] 20 mg PO DAILY Simvastatin [Zocor] 40 mg PO HS Home Medications: Insulin ASPART [NovoLOG] 0 unit SQ DAILY 04/22/15 [History] ALPRAZolam [Xanax 0.25 MG Tablet] 0.25 mg PO DAILY PRN 11/26/18 [History] Alendronate Sodium [Fosamax] 70 mg PO WE 11/26/18 [History] Calcium Carbonate/Vitamin D3 [Calcium 500 + Vit D 200 Caplet] 1 each PO BID 11/26/18 [History] Cyanocobalamin/Folic AC/Vit B6 [Folbee Tablet] 1 each PO DAILY 11/26/18 [History] Lisinopril [Zestril] 5 mg PO DAILY 11/26/18 [History] Montelukast [Singulair] 10 mg PO DAILY@1800 11/26/18 [History] Pantoprazole Sodium [Protonix] 20 mg PO DAILY 11/26/18 [History] Simvastatin [Zocor] 40 mg PO HS 11/26/18 [History] Allergies/Adverse Reactions: Allergy/AdvReac Type Severity Reaction Status Date / Time cephalexin Allergy Difficulty Verified 09/04/18 17:35 Breathing codeine Allergy Nausea Verified 09/04/18 17:35 egg Allergy Vomiting Verified 09/04/18 17:35 Penicillins Allergy Rash Verified 09/04/18 17:35 insulin lispro AdvReac Rash Verified 11/26/18 13:27 [From Humalog Mix] insulin lispro protamine AdvReac Rash Verified 11/26/18 13:27 [From Humalog Mix] Date of admission: 11/26/18 17:57 Primary care physician: Tianna Brown CNP - Constitutional Vitals: Temp Pulse Resp BP Pulse Ox 98.1 F 69 18 117/69 95 11/27/18 07:26 11/27/18 07:26 11/27/18 07:26 11/27/18 07:26 11/27/18 07:50 General appearance: Present: cooperative, A&O X 3, pleasant, no acute distress, answers questions appropriately - Patient Status Condition: Fair - Discharge Instructions Follow Up With: Tianna Brown CNP [Primary Care Provider] - 12/01/18 2:00 pm
--- NOTE | 2018-11-27 11:42 | Internal Med Progress Note ---
<Guerda Petersen - Last Filed: 11/27/18 16:04> Hospitalist Progress Note - Encounter Date of Encounter: 11/27/18 Time of Encounter: 11:38 - Subjective Interval History: 68 y/o F type one DM admitted for DKA that quickly resolved with no complaints. He fatigue has improved - denies abdominal pain, nausea, or vomiting. Overnight patient was noted to be hypoxic into 70s% overnight while sleeping. RN awoke her and resolved with oxygen supplement that was titirated off only for patient to destat agian. Patient denies any shortness of breath, cough, fevers or chest pain. She was woken from sleep by the alarm multiple times. She reports previous referral to pulm for suspicion of asthma was treated for PNA in October - Exam Vitals: Temp Pulse Resp BP Pulse Ox 98.0 F 71 16 119/67 95 11/27/18 11:22 11/27/18 11:22 11/27/18 11:22 11/27/18 11:22 11/27/18 11:22 Exam: General: pleasant, in no acute distress, A&Ox3 Head: atraumatic, normocephalic, Mouth: mucous membranes moist, no mucosal lesions, no obvious caries Cardiac: RRR, no murmurs, no gallops Respiratory: CTAB no wheeze, no rales Abdomen: BSx4, Soft, not distended, no tenderness, no masses, no organomegaly Extremities: pulses intact, no pedal edema, normal ROM Psychiatric: normal mood and affect, intact memory, good judgement and insight - Assessment and Plan (1) Acute respiratory failure with hypoxia Current Visit: Yes Status: Resolved Assessment and Plan: Hypoxia overnight with destat while sleeping with out symptoms concerning for JOANNA v persistent PNA v worsening asthma Recently treated for PNA one month ago then reffered to Pulmonary out patient by PCP for concern for asthma with wheeze on exam PFT suspicious for JOANNA due to upper airway obstruction - six minute walk - overnight oxygen qualification -continue albuterol 11-27-18 chest XR no opascities but hyperlucency within the upper lungs, suggesting possible obstructive lung disease 10-31-18 PFT with 47% increase after brochodilator with indicators of extrathorasic obstruction (2) Diabetes mellitus Current Visit: Yes Status: Chronic Assessment and Plan: DM type 1 with insulin pump functioning but remained hyperglyemia range 145-235 - AACH - continue using insulin pump peer patient - diabetic diet Arrange follow up out patient with her endocrine (3) Asthma Current Visit: Yes Status: Chronic Assessment and Plan: see above (4) GERD (gastroesophageal reflux disease) Current Visit: Yes Status: Chronic Assessment and Plan: Stable continue home medication with formulary substitution (5) DKA (diabetic ketoacidoses) Current Visit: Yes Status: Resolved Assessment and Plan: Admitted with DKA with elevated beta hydroxybutric acid but GAP closed overnight with IVF. - Time Spent with Patient Total time spent is greater than 50% in coordination of care (as documented) at patient's floor/unit and/or counseling patient: Internal Medicine: Result - Labs CBC & Chem 7: 11/26/18 12:13 11/27/18 10:51 Labs: Short CBC 11/26/18 Range/Units 12:13 WBC 8.2 (4.3-11.1) K/mcL Hgb 13.8 (11.5-15.4) g/dL Hct 42.3 (35.3-44.9) % Plt Count 210 (140-400) K/mcL Neutrophils # 7.3 (1.6-8.9) K/mcL BMP 11/26/18 11/26/18 12:13 16:54 Sodium 133 L 137 Potassium 4.4 4.5 Chloride 98 107 Carbon Dioxide 16 L 22 L BUN 25 H 20 Creatinine 0.89 0.66 Glucose 491 H 188 H Calcium 9.5 8.6 Liver Function 11/26/18 Range/Units 12:13 Total Bilirubin 0.7 (0.3-1.0) mg/dL AST 16 (13-39) Units/L ALT 26 (7-52) Units/L Alkaline Phosphatase 137 H (34-104) Units/L Albumin 4.2 (3.5-5.7) g/dL Urine 11/26/18 Range/Units 15:40 Urine Color Yellow (Yellow) Urine Clarity Clear (Clear) Urine pH 5.0 (5.0-8.0) pH Units Ur Specific [place] > 1.030 H (1.010-1.025) Urine Protein Trace (Neg-Trace) mg/dL Urine Glucose (UA) >=1000 H (Normal) mg/dL Consult Discharge Plan - Plan Referrals: Tianna Brown CNP [Primary Care Provider] - 12/01/18 2:00 pm <Goran Otero - Last Filed: 11/27/18 17:53> Hospitalist Progress Note - Encounter Date of Encounter: 11/27/18 - Exam Vitals: Temp Pulse Resp BP Pulse Ox 98.2 F 76 18 107/71 93 11/27/18 16:40 11/27/18 16:40 11/27/18 16:40 11/27/18 16:40 11/27/18 16:40 - Assessment and Plan (1) Acute respiratory failure with hypoxia Current Visit: Yes Status: Resolved (2) DKA (diabetic ketoacidoses) Current Visit: Yes Status: Resolved (3) Diabetes mellitus Current Visit: Yes Status: Chronic (4) halfway (current) use of insulin Current Visit: Yes Status: Chronic (5) Asthma Current Visit: Yes Status: Chronic (6) GERD (gastroesophageal reflux disease) Current Visit: Yes Status: Chronic - Time Spent with Patient Total time spent is greater than 50% in coordination of care (as documented) at patient's floor/unit and/or counseling patient: Internal Medicine: Result - Labs CBC & Chem 7: 11/26/18 12:13 11/27/18 10:51 Labs: BMP 11/26/18 11/27/18 16:54 10:51 Sodium 137 136 Potassium 4.5 4.8 Chloride 107 110 H Carbon Dioxide 22 L 14 L BUN 20 14 Creatinine 0.66 0.74 Glucose 188 H 235 H Calcium 8.6 8.2 L - Impressions Impressions Chest X-Ray 11/27/18 11:20 IMPRESSION: No acute abnormality detected. D/ / Vaughn Hendrickson MD / Vaughn Hendrickson MD Interpreting Provider: Vaughn Hendrickson MD - Attending Attestation I examined this patient and my medical decision-making was reviewed with the Resident Physician on 11/27/18. I agree with the documented findings, disposition and treatment plan as described except to the extent set forth below. Ms Greenwood has been in observation for acute DKA. She improved quickly but had issues with desaturation during the night. She remains moderate to high risk due to potential for worsening clinical status. Ms Greenwood is feeling oK. Her insulin pump has been restarted. No fever or chills. No CP or SOB. Had oxygen desaturation into the 70s during the night. Exam alert Comfortable Mucus membranes dry Heart reg No wheeze Abd soft and nontender I/P 1. Nocturnal hypoxia - qualification test tonight 2. DKA resolved 3. Asthma Further diagnoses and plan as above. <Guerda Petersen - Last Filed: 11/27/18 16:04> (2) Diabetes mellitus Qualifiers: Diabetes mellitus type: type 1 Diabetes mellitus complication status: with hyperglycemia Qualified Code(s): E10.65 - Type 1 diabetes mellitus with hyperglycemia (3) Asthma Qualifiers: Asthma severity: mild Asthma persistence: intermittent Asthma complication type: uncomplicated Qualified Code(s): J45.20 - Mild intermittent asthma, uncomplicated (4) GERD (gastroesophageal reflux disease) Qualifiers: Esophagitis presence: esophagitis presence not specified Qualified Code(s): K21.9 - Gastro-esophageal reflux disease without esophagitis (5) DKA (diabetic ketoacidoses) Qualifiers: Diabetes mellitus type: other specified (including BLU) Diabetes mellitus complication detail: without coma Qualified Code(s): E13.10 - Other specified diabetes mellitus with ketoacidosis without coma <Goran Otero - Last Filed: 11/27/18 17:53> (2) DKA (diabetic ketoacidoses) Qualifiers: Diabetes mellitus type: other specified (including BLU) Diabetes mellitus complication detail: without coma Qualified Code(s): E13.10 - Other specified diabetes mellitus with ketoacidosis without coma (3) Diabetes mellitus Qualifiers: Diabetes mellitus type: type 1 Diabetes mellitus complication status: with hyperglycemia Qualified Code(s): E10.65 - Type 1 diabetes mellitus with hyperglycemia (5) Asthma Qualifiers: Asthma severity: mild Asthma persistence: intermittent Asthma complication type: uncomplicated Qualified Code(s): J45.20 - Mild intermittent asthma, uncomplicated (6) GERD (gastroesophageal reflux disease) Qualifiers: Esophagitis presence: esophagitis presence not specified Qualified Code(s): K21.9 - Gastro-esophageal reflux disease without esophagitis
[2018-11-27] MEDS ORDERED: INSULIN PUMP MC SCH (11:45)
[2018-11-27 12:00] LABS: BUN/Creatinine Ratio 19 (6-26); Blood Urea Nitrogen 14 mg/dL (8-23); Calcium 8.2 mg/dL (8.6-10.3); Carbon Dioxide 14 mEq/L (23-29); Chloride 110 mEq/L (98-107); Glucose 235 mg/dL (70-105); Osmolality,Calculated 290 (280-300); Potassium 4.8 mEq/L (3.5-5.1); Sodium 136 mEq/L (136-145); eGFR For Non-African Americans > 60 (> 60)
[2018-11-27] MEDS: Insulin DETEMIR 100 UNIT/ML X5UNITS SQ SCH (17:59)
[2018-11-28] MEDS: Insulin Regular, Human 100 UNIT/ML SQ SCH ×2 (04:35→04:36)
[2018-11-28] MEDS: *HR* Heparin 5,000 UNIT/ML VIAL SQ SCH (05:47)
[2018-11-28 07:42] VITALS: BP 126/73
--- NOTE | 2018-11-28 09:32 | Discharge Summary ---
- NOTES TO OUTPATIENT PROVIDER Notes to Outpatient Provider: Pt was placed in observation for acute DKA. She improved quickly but had nocturnal desaturation. She had nocturnal study and needs oxygen. Would benefit from outpatient sleep study. Orders not resulted at time of discharge: Pending orders 11/26/18 18:12 EKG [ECG 12 lead ECG] [ECG] Routine Date of Encounter: 11/28/18 Time of Encounter: 09:31 - Discharge Diagnosis (1) Acute respiratory failure with hypoxia Priority: Secondary Status: Suspected (2) DKA (diabetic ketoacidoses) Priority: Primary Status: Resolved Qualifiers: Diabetes mellitus type: other specified (including BLU) Diabetes mellitus complication detail: without coma Qualified Code(s): E13.10 - Other specified diabetes mellitus with ketoacidosis without coma (3) Diabetes mellitus Priority: Secondary Status: Chronic Qualifiers: Diabetes mellitus type: type 1 Diabetes mellitus complication status: with hyperglycemia Qualified Code(s): E10.65 - Type 1 diabetes mellitus with hyperglycemia (4) [facility] (current) use of insulin Priority: Secondary Status: Chronic (5) Asthma Priority: Secondary Status: Chronic Qualifiers: Asthma severity: mild Asthma persistence: intermittent Asthma complication type: uncomplicated Qualified Code(s): J45.20 - Mild intermittent asthma, uncomplicated (6) GERD (gastroesophageal reflux disease) Priority: Secondary Status: Chronic Qualifiers: Esophagitis presence: esophagitis presence not specified Qualified Code(s): K21.9 - Gastro-esophageal reflux disease without esophagitis Hospital course: Ms. Greenwood is a 68 year old female with hx of DM presented to ED with nausea and vomiting and found to be in DKA. She had issues with her insulin pump during the night. She was placed in observation. Ms Greenwood was placed in observation. She corrected acidosis very quickly and was monitored overnight. She was noted to have oxygen desaturation to 70s during the night. She was kept and had nocturnal pulse ox study and did qualify. Oxygen was arranged. Now she is afebrile and ready for discharge home. - Time Spent with Patient Total time spent providing and/or coordinating discharge services: 37min - Discharge Medications Prescriptions: New RX: Albuterol Sulfate [Albuterol Inhaler] 2 puff IH [id number] PRN #1 inhaler PRN Reason: Shortness Of Breath/Wheezing RX: Patient Taking Own Medication 1 each MC DAILY each Continue RX: Insulin ASPART [NovoLOG] 0 unit SQ DAILY RX: ALPRAZolam [Xanax 0.25 MG Tablet] 0.25 mg PO DAILY PRN PRN Reason: Anxiety RX: Calcium Carbonate/Vitamin D3 [Calcium 500-Vit D3 200 Caplet] 1 each PO BID RX: Cyanocobalamin/Folic AC/Vit B6 [Folbee Tablet] 1 each PO DAILY RX: Lisinopril [Zestril] 5 mg PO DAILY RX: Pantoprazole Sodium [Protonix] 20 mg PO DAILY RX: Simvastatin [Zocor] 40 mg PO HS No Action Alendronate Sodium [Fosamax] 70 mg PO WE Montelukast [Singulair] 10 mg PO DAILY@1800 Home Medications: RX: Insulin ASPART [NovoLOG] 0 unit SQ DAILY 04/22/15 [History] Alendronate Sodium [Fosamax] 70 mg PO WE 11/26/18 [History] Montelukast [Singulair] 10 mg PO DAILY@1800 11/26/18 [History] RX: ALPRAZolam [Xanax 0.25 MG Tablet] 0.25 mg PO DAILY PRN 11/26/18 [History] RX: Calcium Carbonate/Vitamin D3 [Calcium 500-Vit D3 200 Caplet] 1 each PO BID 11/26/18 [History] RX: Cyanocobalamin/Folic AC/Vit B6 [Folbee Tablet] 1 each PO DAILY 11/26/18 [History] RX: Lisinopril [Zestril] 5 mg PO DAILY 11/26/18 [History] RX: Pantoprazole Sodium [Protonix] 20 mg PO DAILY 11/26/18 [History] RX: Simvastatin [Zocor] 40 mg PO HS 11/26/18 [History] RX: Albuterol Sulfate [Albuterol Inhaler] 2 puff IH [id number] PRN #1 inhaler 11/28/18 [Rx] RX: Patient Taking Own Medication 1 each MC DAILY each 11/28/18 [Rx] Allergies/Adverse Reactions: Allergy/AdvReac Type Severity Reaction Status Date / Time cephalexin Allergy Difficulty Verified 09/04/18 17:35 Breathing codeine Allergy Nausea Verified 09/04/18 17:35 egg Allergy Vomiting Verified 09/04/18 17:35 Penicillins Allergy Rash Verified 09/04/18 17:35 insulin lispro AdvReac Rash Verified 11/26/18 13:27 [From Humalog Mix] insulin lispro protamine AdvReac Rash Verified 11/26/18 13:27 [From Humalog Mix] Date of admission: 11/26/18 17:57 Primary care physician: Tianna Brown CNP Consults: 11/27/18 11:22 Consult to Stem Roller Operator [CONS] Routine Reason for SW Consult: outpatient oxygen Discharging clinician: Goran Otero Anticipated date of discharge: 11/28/18 - Constitutional Vitals: Temp Pulse Resp BP Pulse Ox 97.4 F L 64 14 126/73 95 11/28/18 07:39 11/28/18 07:39 11/28/18 07:39 11/28/18 07:39 11/28/18 07:39 General appearance: Present: cooperative, A&O X 3, pleasant, answers questions appropriately Exam: See below - Head Head exam: Present: normocephalic - Eye Eye exam: Present: EOMI, conjuntiva pink - ENT ENT exam: Present: mucous membranes moist - Respiratory Respiratory exam: Present: CTAB. Absent: rales, rhonchi, wheezes - Cardiovascular Cardiovascular exam: Present: RRR. Absent: tachycardia - GI/Abdominal GI/Abdominal exam: Present: soft. Absent: tenderness - Extremities Exam Extremities exam: Present: warm. Absent: tenderness - Neurological Exam Neurological exam: Present: alert, oriented X3, no focal deficits - Skin Skin exam: Present: dry, warm. Absent: rash - Patient Status Disposition: Home, Self-Care Condition: Fair Functional capacity at discharge: independent ambulation Overall status at discharge: patient is progressing back to baseline - Discharge Instructions Instructions: Diabetic Ketoacidosis (GEN) Follow Up With: Tianna Brown CNP [Primary Care Provider] - 12/01/18 2:00 pm (Follow up as scheduled. ) - Diet and Activity Activity: increase activity as tolerated Diet: advance to your usual diet
== END 2018-11-28 10:15 | disposition home or self-care (01) ==
LOC: EMEROOARM 11:36 → INTOOBSV 17:57 → SUATTDRO 17:57 → 2NNU 17:57 → 3ANU 11-27 17:11
PROVIDERS: ADMIT Internal Medicine; ATTEND Internal Medicine

== ENCOUNTER 2019-01-20 11:01 | Inpatient (IN) ==
[2019-01-20] MEDS ORDERED: 0.9 % Sodium Chloride 1,000 ML IVC ONE ×3 (11:12→13:21)
[2019-01-20] MEDS ORDERED: 0.9 % Sodium Chloride 2,000 ML ONE (11:12)
[2019-01-20] MEDS ORDERED: Ondansetron 4 MG/2 ML VIAL IVP ONE (11:12)
[2019-01-20] MEDS: 0.9 % Sodium Chloride 1,000 ML IVC SCH ×6 (11:16→20:22)
--- NOTE | 2019-01-20 11:23 | Emergency Department Note ---
Disposition Clinical Impression: DKA (diabetic ketoacidoses) Qualifiers: Diabetes mellitus type: type 1 Diabetes mellitus complication detail: without coma Qualified Code(s): E10.10 - Type 1 diabetes mellitus with ketoacidosis without coma Disposition: Admitted As Inpatient Condition: Fair Referrals: Tianna Brown CNP [Primary Care Provider] - Time of Disposition: 15:04 General Adult HPI - General Stated complaint: vomiting Time Seen by Provider: 01/20/19 11:06 Source: patient, family, EMS Mode of arrival: EMS Limitations: altered mental status Nursing Notes Reviewed: Yes Vital Signs Reviewed: Yes - History of Present Illness HPI Narrative: The 8-year-old female with a past medical history of type 1 diabetes usually managed with an insulin pump. Patient had hip surgery approximately 1 month ago and has been having increased pain so she was placed on new pain medication yesterday. She has been increasingly confused over the last day or so and started vomiting at some point in the last 48 hours. At some point her insulin pump became disconnected. She has been vomiting and using the bathroom a lot for multiple hours. Her initial blood sugar via EMS was read as "high". Initial two blood sugars in the room were both "high" by fingerstick. Pain Scale: 0 - Related Data Home Medications Medication Instructions Recorded Confirmed Alendronate Sodium [Fosamax] 70 mg PO WE 11/26/18 12/16/18 Calcium Carbonate/Vitamin D3 1 each PO BID 11/26/18 12/16/18 [Calcium 500-Vit D3 200 Caplet] Cyanocobalamin/Folic AC/Vit B6 1 each PO DAILY 11/26/18 12/16/18 [Folbee Tablet] Lisinopril [Zestril] 5 mg PO HS 11/26/18 12/16/18 Montelukast [Singulair] 10 mg PO DAILY@1800 11/26/18 12/16/18 Pantoprazole Sodium [Protonix] 20 mg PO DAILY 11/26/18 12/16/18 Simvastatin [Zocor] 40 mg PO HS 11/26/18 12/16/18 Albuterol Sulfate [Albuterol 2 puff IH Q4H PRN 12/16/18 12/16/18 Inhaler] Multivitamin [One-Daily 1 tab PO DAILY 12/16/18 12/16/18 Multi-Vitamin] Subcutaneous Insulin Pump [T:Slim] 1 each MC AD 12/16/18 12/16/18 Previous Rx's Medication Instructions Recorded Acetaminophen [Tylenol] 650 mg PO Q6HR PRN tablet 12/21/18 Enoxaparin [Lovenox] 30 mg SQ DAILY syringe 12/21/18 Polyethylene Glycol 3350 [MiraLAX] 17 gm PO DAILY powd.pack 12/21/18 Sennosides/Docusate Sodium [Senna 2 each PO BID tablet 12/21/18 Plus] OxyCODONE/APAP 5/325 [Percocet 1 each PO Q4HR PRN 2 Days #10 01/19/19 5/325 MG] tablet Allergies Allergy/AdvReac Type Severity Reaction Status Date / Time cephalexin Allergy Difficulty Verified 12/16/18 17:21 Breathing egg Allergy Vomiting Verified 09/04/18 17:35 Penicillins Allergy Rash Verified 12/16/18 17:21 codeine AdvReac Nausea Verified 12/16/18 17:21 insulin lispro AdvReac Rash Verified 12/16/18 17:21 [From Humalog Mix] insulin lispro protamine AdvReac Rash Verified 12/16/18 17:21 [From Humalog Mix] Limitations: ROS unobtainable due to patients medical condition Past Medical History - Past Medical History Medical history: Reports: diabetes, GERD, hypertension Surgical history: Reports: non-contributory Psychiatric history: Reports: no psych history BOILER OR ENGINE OPERATOR history: Reports: no BOILER OR ENGINE OPERATOR history - Social History Smoking Status: Former smoker Smokeless Tobacco Status: No Alcohol use: Reports: none Drug use: Reports: none Physical Exam General: Sleepy but arousable, can answer some questions but requires multiple redirections. Somewhat tangential speech. Head: atraumatic, normocephalic. ENT: No conjunctival injection, no scleral icterus. Mucous membranes dry. Neuro: Not alert, but awake. Cannot participate in neurologic exam. Pulm: Lungs CTAB A/P. No wheezes, rales, ronchi. Cardio: Tachycardia. Chest not tender to palpation. Abd: Soft, non-distended. Normoactive bowel sounds. Non-tender to palpation. No guarding. Non rigid. Extremities: Radial pulses 1+ rasheed, dorsalis pedis/posterior tibialis 1+ rasheed. No LE edema. No cyanosis, clubbing. Skin: warm, dry, intact. No rashes. - General General appearance: alert Course - Consultations Consultation #1: Spoke with Dr. Melara, floor person covering ICU today and he relates that the patient is likely down at least 6L, give her 2 more liters of fluids, and that he would reassess the patient at bedside. He thinks that she will likely be able to go to step-down unit. Time: 13:23 Vital Signs O2 Sat by Pulse Oximetry 100 01/20/19 11:15 Temperature 97.9 F 01/20/19 11:17 Pulse Rate 113 01/20/19 13:58 Respiratory Rate 26 01/20/19 13:58 Blood Pressure 110/87 01/20/19 13:58 O2 Sat by Pulse Oximetry 100 01/20/19 13:58 Oxygen Delivery Oxygen Delivery Room Air Medical Decision Making - MDM Narrative Medical decision making narrative: Patient's lab work was consistent with DKA, patient was given 5 L of normal saline while she was in the department, 10 units of normal insulin, and started on an insulin drip. Initial potassium was 6.3, so potassium was not started as supplementation in the department. Patient was given Zofran to help with her nausea. She was kept comfortable. After a prolonged conversation between Dr. melara and Dr. bowie, it was decided the patient was stable enough to be admitted to [facility]. Patient was admitted to the hospitalist who agreed to accept the patient to their service. Patient's vitals improved during the course of her treatment. Family at bedside was given an opportunity to ask questions and all their concerns were addressed. Patient and family agreed with the plan for care. - Medical Records Medical records reviewed: Yes I reviewed the patient's medical records. - Lab Data Lab results reviewed: Yes I reviewed the patient's lab results. Result diagrams: 01/20/19 11:18 01/20/19 11:18 Lab Results 01/20/19 01/20/19 01/20/19 Range/Units 11:18 11:18 11:18 WBC 25.5 H (4.3-11.1) K/mcL RBC 4.34 (3.82-4.97) M/mcL Hgb 12.6 (11.5-15.4) g/dL Hct 42.4 (35.3-44.9) % MCV 97.7 D (83.0-100.0) fL MCH 29.0 (28.0-33.3) pg MCHC 29.7 L (31.6-35.5) g/dL RDW 12.9 (11.5-14.5) % Plt Count 384 (140-400) K/mcL MPV 11.1 (9.4-12.4) fL Seg Neutrophils % 90.0 % Band Neutrophils % 8.0 H (0-4) % Monocytes % 2.0 % Neutrophils # 25.0 H (1.6-8.9) K/mcL Monocytes # 0.5 (0.0-1.3) K/mcL Platelet Estimate Normal (Normal) [place] Cells 1+ A (Not Present) PT 13.9 H (9.4-12.1) Seconds INR 1.2 APTT 24.7 L (26.0-36.0) Seconds VBG pH (7.32-7.42) pH Units VBG pCO2 (41-51) mmHg VBG pO2 (25-50) mmHg VBG HCO3 (21-27) mEq/L Sodium 130 L (136-145) mEq/L Potassium 6.3 H (3.5-5.1) mEq/L Chloride 92 L (98-107) mEq/L Carbon Dioxide 6 L* (23-29) mEq/L BUN 44 H (8-23) mg/dL Creatinine 1.64 H (0.60-1.20) mg/dL Est GFR ( Amer) 38 L (> 60) Est GFR (Non-Af Amer) 31 L (> 60) BUN/Creatinine Ratio 27 H (6-26) Glucose 1025 H* (70-105) mg/dL Calculated Osmolality 333 H (280-300) Lactic Acid (0.5-2.2) mmol/L Calcium 10.0 (8.6-10.3) mg/dL Phosphorus 7.4 H (2.7-4.5) mg/dL Magnesium 2.7 H (1.6-2.6) mg/dL Total Bilirubin 0.7 (0.3-1.0) mg/dL Direct Bilirubin 0.3 H (0.0-0.2) mg/dL Indirect Bilirubin 0.4 (0.0-1.2) mg/dL AST 16 (13-39) Units/L ALT 21 (7-52) Units/L Alkaline Phosphatase 169 H (34-104) Units/L Troponin I 0.05 H* (< 0.04) ng/mL Serum Total Protein 6.8 (6.4-8.9) g/dL Albumin 4.3 (3.5-5.7) g/dL Globulin 2.5 (2.4-3.5) g/dL Albumin/Globulin Ratio 1.7 (1.1-2.2) Lipase 4 L (11-82) Units/L Beta-Hydroxybutyric Acd (0.02-0.27) mmol/L Urine Color (Yellow) Urine Clarity (Clear) Urine pH (5.0-8.0) pH Units Ur Specific [place] (1.010-1.025) Urine Protein (Neg-Trace) mg/dL Urine Glucose (UA) (Normal) mg/dL Urine Ketones (Negative) mg/dL Urine Blood (Negative) Urine Nitrite (Negative) Urine Bilirubin (Negative) Urine Urobilinogen (Normal) mg/dL Ur Leukocyte Esterase (Negative) Ur Culture Indicated? (NO) Person Notif of Crit 01/20/19 01/20/19 01/20/19 Range/Units 11:18 11:18 11:32 WBC (4.3-11.1) K/mcL RBC (3.82-4.97) M/mcL Hgb (11.5-15.4) g/dL Hct (35.3-44.9) % MCV (83.0-100.0) fL MCH (28.0-33.3) pg MCHC (31.6-35.5) g/dL RDW (11.5-14.5) % Plt Count (140-400) K/mcL MPV (9.4-12.4) fL Seg Neutrophils % % Band Neutrophils % (0-4) % Monocytes % % Neutrophils # (1.6-8.9) K/mcL Monocytes # (0.0-1.3) K/mcL Platelet Estimate (Normal) [place] Cells (Not Present) PT (9.4-12.1) Seconds INR APTT (26.0-36.0) Seconds VBG pH 7.01 L* (7.32-7.42) pH Units VBG pCO2 22 L (41-51) mmHg VBG pO2 132 H (25-50) mmHg VBG HCO3 6 L (21-27) mEq/L Sodium (136-145) mEq/L Potassium (3.5-5.1) mEq/L Chloride (98-107) mEq/L Carbon Dioxide (23-29) mEq/L BUN (8-23) mg/dL Creatinine (0.60-1.20) mg/dL Est GFR ( Amer) (> 60) Est GFR (Non-Af Amer) (> 60) BUN/Creatinine Ratio (6-26) Glucose (70-105) mg/dL Calculated Osmolality (280-300) Lactic Acid 5.0 H* (0.5-2.2) mmol/L Calcium (8.6-10.3) mg/dL Phosphorus (2.7-4.5) mg/dL Magnesium (1.6-2.6) mg/dL Total Bilirubin (0.3-1.0) mg/dL Direct Bilirubin (0.0-0.2) mg/dL Indirect Bilirubin (0.0-1.2) mg/dL AST (13-39) Units/L ALT (7-52) Units/L Alkaline Phosphatase (34-104) Units/L Troponin I (< 0.04) ng/mL Serum Total Protein (6.4-8.9) g/dL Albumin (3.5-5.7) g/dL Globulin (2.4-3.5) g/dL Albumin/Globulin Ratio (1.1-2.2) Lipase (11-82) Units/L Beta-Hydroxybutyric Acd > 2.00 H (0.02-0.27) mmol/L Urine Color (Yellow) Urine Clarity (Clear) Urine pH (5.0-8.0) pH Units Ur Specific [place] (1.010-1.025) Urine Protein (Neg-Trace) mg/dL Urine Glucose (UA) (Normal) mg/dL Urine Ketones (Negative) mg/dL Urine Blood (Negative) Urine Nitrite (Negative) Urine Bilirubin (Negative) Urine Urobilinogen (Normal) mg/dL Ur Leukocyte Esterase (Negative) Ur Culture Indicated? (NO) Person Notif of Kurt torres 01/20/19 Range/Units 12:34 WBC (4.3-11.1) K/mcL RBC (3.82-4.97) M/mcL Hgb (11.5-15.4) g/dL Hct (35.3-44.9) % MCV (83.0-100.0) fL MCH (28.0-33.3) pg MCHC (31.6-35.5) g/dL RDW (11.5-14.5) % Plt Count (140-400) K/mcL MPV (9.4-12.4) fL Seg Neutrophils % % Band Neutrophils % (0-4) % Monocytes % % Neutrophils # (1.6-8.9) K/mcL Monocytes # (0.0-1.3) K/mcL Platelet Estimate (Normal) [place] Cells (Not Present) PT (9.4-12.1) Seconds INR APTT (26.0-36.0) Seconds VBG pH (7.32-7.42) pH Units VBG pCO2 (41-51) mmHg VBG pO2 (25-50) mmHg VBG HCO3 (21-27) mEq/L Sodium (136-145) mEq/L Potassium (3.5-5.1) mEq/L Chloride (98-107) mEq/L Carbon Dioxide (23-29) mEq/L BUN (8-23) mg/dL Creatinine (0.60-1.20) mg/dL Est GFR ( Amer) (> 60) Est GFR (Non-Af Amer) (> 60) BUN/Creatinine Ratio (6-26) Glucose (70-105) mg/dL Calculated Osmolality (280-300) Lactic Acid (0.5-2.2) mmol/L Calcium (8.6-10.3) mg/dL Phosphorus (2.7-4.5) mg/dL Magnesium (1.6-2.6) mg/dL Total Bilirubin (0.3-1.0) mg/dL Direct Bilirubin (0.0-0.2) mg/dL Indirect Bilirubin (0.0-1.2) mg/dL AST (13-39) Units/L ALT (7-52) Units/L Alkaline Phosphatase (34-104) Units/L Troponin I (< 0.04) ng/mL Serum Total Protein (6.4-8.9) g/dL Albumin (3.5-5.7) g/dL Globulin (2.4-3.5) g/dL Albumin/Globulin Ratio (1.1-2.2) Lipase (11-82) Units/L Beta-Hydroxybutyric Acd (0.02-0.27) mmol/L Urine Color Yellow (Yellow) Urine Clarity Clear (Clear) Urine pH 5.0 (5.0-8.0) pH Units Ur Specific [place] 1.027 H (1.010-1.025) Urine Protein Negative (Neg-Trace) mg/dL Urine Glucose (UA) >=1000 H (Normal) mg/dL Urine Ketones 80 H (Negative) mg/dL Urine Blood Negative (Negative) Urine Nitrite Negative (Negative) Urine Bilirubin Negative (Negative) Urine Urobilinogen Normal (Normal) mg/dL Ur Leukocyte Esterase Negative (Negative) Ur Culture Indicated? NO (NO) Person Notif of Crit - Radiology Data Radiology results reviewed: Yes I reviewed the patient's radiology results. Chest X-Ray 01/20/19 12:25 IMPRESSION: Chronic pulmonary vascular redistribution. D/ / Osmany Lyon MD / Osmany Lyon MD Interpreting Provider: Osmany Lyon MD - EKG Data EKG #1 EKG attestation: Yes I reviewed and interpreted this EKG. EKG results narrative: Heart rate 107, rhythm sinus tachycardia, axis normal. IL 168, QRS 107, QTC 478. Less than [address] depression diffusely, no evidence of ST elevation. Attestation Statement - Attestation Attestation: I, Landen Vick, examined this patient and my medical decision-making was reviewed with the RATING SPECIALIST/PA/Advanced Practice Nurse/Resident Physician. I agree with the documented findings, disposition and treatment plan as described except to the extent set forth below. 68-year-old female presents emergency Department with concerns of tachycardia, confusion. Patient is a type I diabetic who usually uses a insulin pump however the insulin pump has not been attached for likely several days. Patient was seen yesterday in the emergency department for right hip pain status post hip surgery. X-ray at that time was negative for acute fracture. Today the patient is tachycardic, hypertensive and has significantly elevated glucose. Patient is likely in DKA which she has had multiple times in the past. Patient is confusion emergency department and is unable to give an accurate history regarding her case and presentation. Family is present at bedside who assists with the history taking. Patient has had intermittent vomiting without hematemesis. There is been frequent urination. During reevaluation in the emergency department patient was mildly hypotensive. She is given multiple liters of fluid in the emergency department. Patient was significantly acidotic about below 7.0, she did not receive bicarbonate. 10 units of IV regular insulin was ordered after obtaining potassium greater than 5.5. Patient apparently had insulin, lispro listed as a allergy, the allergy listed was vomiting and a headache. Patient felt comfortable with taking the insulin to treat her likely DKA. Urinalysis and chest x-ray are pending at this time. Because of the DKA is likely lack of insulin. Patient will be admitted to the hospitalist for further care and evaluation.
[2019-01-20 11:29] LABS: Hematocrit 42.4 % (35.3-44.9); Platelet Count 384 K/mcL (140-400)
[2019-01-20 11:30] LABS: Hemoglobin 12.6 g/dL (11.5-15.4); Mean Corpuscular HGB Conc 29.7 g/dL (31.6-35.5); Mean Platelet Volume 11.1 fL (9.4-12.4); Red Blood Count 4.34 M/mcL (3.82-4.97); Red Cell Distribution Width 12.9 % (11.5-14.5)
[2019-01-20 11:37] LABS: VBG HCO3 6 mEq/L (21-27); VBG PCO2 22 mmHg (41-51); VBG PH 7.01 pH Units (7.32-7.42); VBG PO2 132 mmHg (25-50)
[2019-01-20 11:42] LABS: INR 1.2; Prothrombin Time 13.9 Seconds (9.4-12.1)
[2019-01-20 11:45] LABS: Activated Partial Thrombo Time 24.7 Seconds (26.0-36.0)
[2019-01-20 12:13] LABS: Albumin 4.3 g/dL (3.5-5.7); Albumin/Globulin Ratio 1.7 (1.1-2.2); Bilirubin,Direct 0.3 mg/dL (0.0-0.2); Bilirubin,Indirect 0.4 mg/dL (0.0-1.2); Bilirubin,Total 0.7 mg/dL (0.3-1.0); Globulin 2.5 g/dL (2.4-3.5); Magnesium 2.7 mg/dL (1.6-2.6); Phosphorous 7.4 mg/dL (2.7-4.5); Potassium 6.3 mEq/L (3.5-5.1); Total Protein 6.8 g/dL (6.4-8.9); Troponin I 0.05 ng/mL (< 0.04)
[2019-01-20 12:21] LABS: Mean Corpuscular Volume 97.7 fL (83.0-100.0)
[2019-01-20] MEDS ORDERED: Insulin Regular, Human 100 UNIT/ML IV ONE (12:22)
[2019-01-20] MEDS ORDERED: *HR* Dextrose 50 % in Water (Syg) 50 ML SYRINGE IVP PRN ×2 (12:22→15:07)
[2019-01-20] MEDS ORDERED: Insulin Human Regular 100 UNIT in 0.9 % Sodium Chloride 100 ML IVC SCH ×2 (12:30→17:19)
[2019-01-20 12:35] LABS: Monocytes # 0.5 K/mcL (0.0-1.3)
--- NOTE | 2019-01-20 12:36 | Electrocardiograph Report ---
[facility] Test Date: 2019-01-20 Pat Name: Carrie Greenwood Department: [id number] Room: Gender: F Supervisor Wound: : 1950 Requested By: Pennie Nelson Order Number: [id number] Reading MD: Lowell Carranza Measurements Intervals [place] Rate: 107 P: 78 NE: 168 QRS: 29 QRSD: 107 T: 81 QT: 358 QTc: 478 Interpretive Statements Sinus tachycardia Right atrial enlargement Consider right ventricular hypertrophy Baseline wander in lead(s) V5 Borderline prolonged QT interval Electronically Signed On 01-20-2019 12:34:51 EDT by Lowell Carranza
[2019-01-20 12:46] LABS: Platelet Estimate Normal (Normal)
[2019-01-20 12:47] LABS: Burr Cells 1+ (Not Present)
[2019-01-20 13:09] LABS: Bilirubin,Urine Negative (Negative); Blood,Urine Negative (Negative); Clarity,Urine Clear (Clear); Color,Urine Yellow (Yellow); Glucose,Urine (UA) >=1000 mg/dL (Normal); Ketones,Urine 80 mg/dL (Negative); Leukocyte Esterase,Urine Negative (Negative); Nitrite,Urine Negative (Negative); Protein,Urine Negative (Neg-Trace); Specific Gravity,Urine 1.027 (1.010-1.025); Urobilinogen,Urine Normal (Normal)
[2019-01-20] MEDS ORDERED: Metoclopramide 10 MG/2 ML VIAL IVP ONE (13:46)
[2019-01-20] MEDS ORDERED: Insulin Regular, Human 100 UNIT/ML IV PRN (15:07)
[2019-01-20] MEDS ORDERED: D5% in 0.45% NACL 1,000 ML IVC PRN (15:07)
[2019-01-20 15:28] LABS: Calcium 8.8 mg/dL (8.6-10.3); Potassium 4.7 mEq/L (3.5-5.1)
[2019-01-20 16:13] LABS: Calcium 8.5 mg/dL (8.6-10.3); Potassium 4.5 mEq/L (3.5-5.1)
--- NOTE | 2019-01-20 16:23 | Internal Med History&Physical ---
<Julio Aleman - Last Filed: 01/20/19 16:13> Date of Encounter: 01/20/19 Time of Encounter: 15:20 Internal Medicine - H&P: HPI Chief complaint: Nausea and vomiting Admitted From: Emergency Dept Plans for Post Hospital Care: Home History of present illness: Ms. Greenwood is a 68 year old female with history of diabetes mellitus type 1, GERD, hypertension and recent hip surgery who presents to the ED with nausea and vomiting for about 15 hours duration. The patient states that she began having nausea, vomiting and abdominal pain approximately 15 hours. She is accompanied by her family who provide a significant amount of her history as she is mildly confused at this time. The patient apparently had a hip surgery following a right hip fracture approximately 1 month ago at which time she was admitted to the hospital and discharged without significant complication however she apparently returned to the ED yesterday due to significant right hip pain with low back pain as well. The patient received an MRI of the right knee, as well as plain films of the lumbar spine and right hip which demonstrated a right medial meniscal tear however otherwise no acute findings and was set up with an outpatient orthopedic follow-up and sent home. Her family states that she had her insulin pump when she left initially, however sometime after she left the pumice of come disconnected and also became misplaced. She became nauseated, and the patient also started vomiting some time in the evening which continued throughout the night and was associated with some abdominal pain. She had no other acute symptoms to her knowledge apart from some altered mentation according to the patient's family. The patient's family decided to bring her to the hospital today by way of rescue squad. In the emergency room, the patient was found to have labs significant for a glucose of 1025, anion gap of 34, bicarbonate of 6, lactic acid of 5.0, pH of 7.01 on VBG, WBC of 25.5, and serum creatinine of 1.64. She had a chest x-ray which was significant for chronic pulmonary vascular changes however not substantially obvious for congestion or CHF. She is tachycardic, and tachypneic as well, and she was initially hypotensive however responded well to fluids. She was started on DKA protocol, including saline boluses and insulin drip, and she was admitted to the stepdown unit for management. Past Med Surg Social Fam HX - Past Medical History Medical history: diabetes, GERD, hypertension Additional medical history: carpel tunnel surgery needs done but A1C too high Psychiatric history: no psych history - Past Surgical History Surgical History: non-contributory - Social History Smoking Status: Former smoker Smokeless Tobacco Status: No Alcohol use: none Drug use: none - Family History Mother Hx Family Respiratory Disorders: Yes Internal Medicine - H&P: Meds Alendronate Sodium [Fosamax] 70 mg PO WE 11/26/18 [History] Calcium Carbonate/Vitamin D3 [Calcium 500-Vit D3 200 Caplet] 1 each PO BID 11/26/18 [History] Cyanocobalamin/Folic AC/Vit B6 [Folbee Tablet] 1 each PO DAILY 11/26/18 [History] Lisinopril [Zestril] 5 mg PO HS 11/26/18 [History] Montelukast [Singulair] 10 mg PO DAILY@1800 11/26/18 [History] Pantoprazole Sodium [Protonix] 20 mg PO DAILY 11/26/18 [History] Simvastatin [Zocor] 40 mg PO HS 11/26/18 [History] Albuterol Sulfate [Albuterol Inhaler] 2 puff IH Q4H PRN 12/16/18 [History] Multivitamin [One-Daily Multi-Vitamin] 1 tab PO DAILY 12/16/18 [History] Subcutaneous Insulin Pump [T:Slim] 1 each MC AD 12/16/18 [History] Acetaminophen [Tylenol] 650 mg PO Q6HR PRN tablet 12/21/18 [Rx] Enoxaparin [Lovenox] 30 mg SQ DAILY syringe 12/21/18 [Rx] Polyethylene Glycol 3350 [MiraLAX] 17 gm PO DAILY powd.pack 12/21/18 [Rx] Sennosides/Docusate Sodium [Senna Plus] 2 each PO BID tablet 12/21/18 [Rx] OxyCODONE/APAP 5/325 [Percocet 5/325 MG] 1 each PO Q4HR PRN 2 Days #10 tablet 01/19/19 [Rx] Allergy/AdvReac Type Severity Reaction Status Date / Time cephalexin Allergy Difficulty Verified 12/16/18 17:21 Breathing egg Allergy Vomiting Verified 09/04/18 17:35 Penicillins Allergy Rash Verified 12/16/18 17:21 codeine AdvReac Nausea Verified 12/16/18 17:21 insulin lispro AdvReac Rash Verified 12/16/18 17:21 [From Humalog Mix] insulin lispro protamine AdvReac Rash Verified 12/16/18 17:21 [From Humalog Mix] All Systems PM: A 10-system review of systems was performed and is negative for pertinent findings except as documented above in the HPI. Review of systems: Constitutional: Denies fevers, chills, weight loss, generalized fatigue Head/Neck: Denies GONZALES, neck stiffness EENT: Denies vision changes/blurriness, rhinorrhea, congestion, sore throat CVS: Denies chest pain, palpitations, NEGRON, orthopnea, edema, PND Pulm: Denies SOB, cough, sputum, hemoptysis, wheezing GI: Admits to abdominal pain, nausea, vomiting. Denies hematemesis, diarrhea, hematochezia. : Denies dysuria, increased frequency, urgency, hematuria Heme: Denies ease of bleeding or bruising MSK: Denies joint pain, limited ROM Skin: Denies rashes, ulcers, color changes Neuro: Denies GONZALES, paresthesias, focal deficits, ataxia - Constitutional Vitals: Temp Pulse Resp BP Pulse Ox 97.9 F 113 28 115/87 100 01/20/19 11:17 01/20/19 15:32 01/20/19 15:32 01/20/19 15:32 01/20/19 15:32 Exam: Gen: Vitals noted. Appears mildly distressed Eyes: anicteric sclerae, moist conjunctivae; no lid-lag; Pupils equal and reactive to light HENT: Atraumatic; oropharynx clear with moist mucous membranes and no mucosal ulcerations; normal hard and soft palate Neck: Trachea midline; supple, no thyromegaly or lymphadenopathy Cardiac: RRR however tachycardic, no murmur, +S1/S2 Pulmonary: CTA bilaterally, no wheezes, rales or rhonchi, equal chest expansion Abdomen: Soft, mild tenderness to palpation throughout, no masses, no hepatosplenomegaly MSK: ROM intact, no joint swelling noted Extremities: no BLE edema, nontender calf, no cyanosis or clubbing Skin: Normal temperature, turgor and texture; no rash, ulcers or subcutaneous nodules Neuro: moves all extremities, no focal deficits. Psych: Alert and oriented 3, appears restless Internal Med - H&P Results - Labs CBC & Chem 7: 01/20/19 11:18 01/20/19 15:37 Labs: Short CBC 01/20/19 Range/Units 11:18 WBC 25.5 H (4.3-11.1) K/mcL Hgb 12.6 (11.5-15.4) g/dL Hct 42.4 (35.3-44.9) % Plt Count 384 (140-400) K/mcL Neutrophils # 25.0 H (1.6-8.9) K/mcL BMP 01/20/19 01/20/19 01/20/19 11:18 14:50 15:37 Sodium 130 L 137 137 Potassium 6.3 H 4.7 D 4.5 Chloride 92 L 103 105 Carbon Dioxide 6 L* 6 L* 5 L* BUN 44 H 41 H 40 H Creatinine 1.64 H 1.31 H 1.30 H Glucose 1025 H* 792 H* 725 H* Calcium 10.0 8.8 8.5 L Cardiac Enzymes 01/20/19 Range/Units 11:18 Troponin I 0.05 H* (< 0.04) ng/mL Liver Function 01/20/19 Range/Units 11:18 Total Bilirubin 0.7 (0.3-1.0) mg/dL Direct Bilirubin 0.3 H (0.0-0.2) mg/dL AST 16 (13-39) Units/L ALT 21 (7-52) Units/L Alkaline Phosphatase 169 H (34-104) Units/L Albumin 4.3 (3.5-5.7) g/dL Urine 01/20/19 Range/Units 12:34 Urine Color Yellow (Yellow) Urine Clarity Clear (Clear) Urine pH 5.0 (5.0-8.0) pH Units Ur Specific [place] 1.027 H (1.010-1.025) Urine Protein Negative (Neg-Trace) mg/dL Urine Glucose (UA) >=1000 H (Normal) mg/dL - ABG Interpretation ABG results: 01/20/19 11:32 VBG pH 7.01 L* VBG pCO2 22 L VBG pO2 132 H VBG HCO3 6 L - Impressions ITS Impressions Chest X-Ray 05/22/19 12:25 IMPRESSION: Chronic pulmonary vascular redistribution. D/ / Osmany Lyon MD / Osmany Lyon MD Interpreting Provider: Osmany Lyon MD - Assessment and Plan (1) DKA (diabetic ketoacidoses) Current Visit: Yes Status: Acute Assessment and plan: Diabetic ketoacidosis, likely secondary to accidental noncompliance Patient apparently misplaced insulin pump following discharge from emergency department States that she has only had one episode of DKA in her life prior to this which was about 6 weeks ago On presentation, patient had serum pH of 7.01, lactic acid 5.0, bicarbonate 6, anion gap of 32. Glucose 1025 No obvious secondary or infectious etiology, however consider recent orthopedic procedures We will start the patient on insulin drip with DKA fluid protocol, will likely require >6L fluids q2 hours BMP until gap is closed and bicarbonate is 18 Cardiac monitoring until potassium is corrected NPO except ice chips Blood cultures Qualifiers: Diabetes mellitus type: type 1 Diabetes mellitus complication detail: without coma Qualified Code(s): E10.10 - Type 1 diabetes mellitus with ketoacidosis without coma (2) Hip pain, right Current Visit: Yes Status: Acute Assessment and plan: Right hip pain, well healing incision s/p ORIF ~1mo ago XR yesterday shows healing fracture Ortho was consulted in ED yesterday, plan for outpatient follow-up today I spoke with Dr. Boyd and he said that they would see the patient in the hospital while she is here (3) Back pain Current Visit: No Status: Acute Assessment and plan: Back pain, lumbar x-rays normal Qualifiers: Back pain location: low back pain Chronicity: unspecified Back pain laterality: unspecified Sciatica presence: unspecified whether sciatica present Qualified Code(s): M54.5 - Low back pain (4) GERD (gastroesophageal reflux disease) Current Visit: Yes Status: Chronic Assessment and plan: Continue PPI Qualifiers: Esophagitis presence: esophagitis presence not specified Qualified Code(s): K21.9 - Gastro-esophageal reflux disease without esophagitis (5) DVT prophylaxis Current Visit: No Status: Acute Assessment and plan: SQ heparin (6) Acute meniscal tear of right knee Current Visit: Yes Status: Acute Assessment and plan: Tear of the right medial meniscus MRI demonstrates new tear of the right medial meniscus Likely acute, unknown when this injury took place Consults orthopedic surgery Qualifiers: Encounter type: initial encounter Qualified Code(s): S83.206A - Unspecified tear of unspecified meniscus, current injury, right knee, initial encounter - Time Spent With Patient Total time spent is greater than 50% in coordination of care (as documented) at patient's floor/unit and/or counseling patient: <Goran Otero - Last Filed: 01/20/19 17:45> Date of Encounter: 01/20/19 Internal Medicine - H&P: HPI History of present illness: Ms. Greenwood is a 68 year old female Past Med Surg Social Fam HX - Past Surgical History Surgical History: hip replacement All Systems PM: A 10-system review of systems was performed and is negative for pertinent find ings except as documented above in the HPI. - Constitutional Vitals: Temp Pulse Resp BP Pulse Ox 97.9 F 113 26 107/52 100 01/20/19 11:17 01/20/19 16:29 01/20/19 16:29 01/20/19 16:29 01/20/19 16:29 Internal Med - H&P Results - Labs CBC & Chem 7: 01/20/19 11:18 01/20/19 15:37 Labs: Short CBC 01/20/19 Range/Units 11:18 WBC 25.5 H (4.3-11.1) K/mcL Hgb 12.6 (11.5-15.4) g/dL Hct 42.4 (35.3-44.9) % Plt Count 384 (140-400) K/mcL Neutrophils # 25.0 H (1.6-8.9) K/mcL BMP 01/20/19 01/20/19 01/20/19 11:18 14:50 15:37 Sodium 130 L 137 137 Potassium 6.3 H 4.7 D 4.5 Chloride 92 L 103 105 Carbon Dioxide 6 L* 6 L* 5 L* BUN 44 H 41 H 40 H Creatinine 1.64 H 1.31 H 1.30 H Glucose 1025 H* 792 H* 725 H* Calcium 10.0 8.8 8.5 L Cardiac Enzymes 01/20/19 Range/Units 11:18 Troponin I 0.05 H* (< 0.04) ng/mL Liver Function 01/20/19 Range/Units 11:18 Total Bilirubin 0.7 (0.3-1.0) mg/dL Direct Bilirubin 0.3 H (0.0-0.2) mg/dL AST 16 (13-39) Units/L ALT 21 (7-52) Units/L Alkaline Phosphatase 169 H (34-104) Units/L Albumin 4.3 (3.5-5.7) g/dL Urine 01/20/19 Range/Units 12:34 Urine Color Yellow (Yellow) Urine Clarity Clear (Clear) Urine pH 5.0 (5.0-8.0) pH Units Ur Specific [place] 1.027 H (1.010-1.025) Urine Protein Negative (Neg-Trace) mg/dL Urine Glucose (UA) >=1000 H (Normal) mg/dL - ABG Interpretation ABG results: 01/20/19 11:32 VBG pH 7.01 L* VBG pCO2 22 L VBG pO2 132 H VBG HCO3 6 L - Impressions ITS Impressions Chest X-Ray 01/20/19 12:25 IMPRESSION: Chronic pulmonary vascular redistribution. D/ / Osmany Lyon MD / Osmany Lyon MD Interpreting Provider: Osmany Lyon MD - Assessment and Plan (1) DKA (diabetic ketoacidoses) Current Visit: Yes Status: Acute Qualifiers: Diabetes mellitus type: type 1 Diabetes mellitus complication detail: without coma Qualified Code(s): E10.10 - Type 1 diabetes mellitus with ketoacidosis without coma (2) DVT prophylaxis Current Visit: No Status: Acute (3) GERD (gastroesophageal reflux disease) Current Visit: Yes Status: Chronic Qualifiers: Esophagitis presence: esophagitis presence not specified Qualified Code(s): K21.9 - Gastro-esophageal reflux disease without esophagitis (4) Hip pain, right Current Visit: Yes Status: Acute (5) Back pain Current Visit: No Status: Acute Qualifiers: Back pain location: low back pain Chronicity: unspecified Back pain laterality: unspecified Sciatica presence: unspecified whether sciatica present Qualified Code(s): M54.5 - Low back pain (6) Acute meniscal tear of right knee Current Visit: Yes Status: Acute Qualifiers: Encounter type: initial encounter Qualified Code(s): S83.206A - Unspecified tear of unspecified meniscus, current injury, right knee, initial encounter (7) Diabetes mellitus Current Visit: No Status: Chronic Qualifiers: Diabetes mellitus type: type 1 Diabetes mellitus complication status: with hyperglycemia Qualified Code(s): E10.65 - Type 1 diabetes mellitus with hyperglycemia (8) Asthma Current Visit: No Status: Chronic Qualifiers: Asthma severity: mild Asthma persistence: intermittent Asthma complication type: uncomplicated Qualified Code(s): J45.20 - Mild intermittent asthma, uncomplicated (9) manager transfer (current) use of insulin Current Visit: No Status: Chronic (10) Leukocytosis Current Visit: Yes Status: Acute Qualifiers: Leukocytosis type: unspecified Qualified Code(s): D72.829 - Elevated white blood cell count, unspecified - Time Spent With Patient Total time spent is greater than 50% in coordination of care (as documented) at patient's floor/unit and/or counseling patient: - Attending Attestation I examined this patient and my medical decision-making was reviewed with the Resident Physician on 01/20/19. I agree with the documented findings, disposition and treatment plan as described except to the extent set forth below. Ms Greenwood is 68 y/o female with insulin requiring DM presented to ED due to confusion. She recently had hip replacement. She was having increased pain yesterday and was seen in ED. During the night her insulin pump became disconnected. This AM she was somnolent and confused. She was brought to ED and found to be in DKA and has been admitted. Currently she remains somewhat confused. Denies worsening pain or drainage from wound. Exam alert. Somnolent. Confused to place and time. [place]ul respirations noted. Mucus membranes dry Neck supple Heart reg and tachy. No murmur heard Lungs diminished but clear Abd soft and nontender No edema No drainage Labs reviewed I/P 1. Acute DKA - appears to be due to pump disconnecting. No overt sign of infection (though WBC 25K). EKG nonacute. Admit. DKA protocol. Recheck labs in AM. 2. Recent LENORE - recent increased pain. Xray negative yesterday. Follow for any worsening signs 3. Leukocytosis - blood cx ordered. Recheck in AM Further diagnoses and plan as above. Pt significantly ill and I anticipate greater than 2 midnight stay therefore admitted inpatient.
[2019-01-20 16:32] LABS: Estimated Average Glucose 249 mg/dl; Hemoglobin A1C 10.3 %
[2019-01-20] MEDS ORDERED: D5% in 0.45% NACL w KCl 20 MEQ/1,000 ML MLS IVC PRN (17:19)
[2019-01-20] MEDS ORDERED: 0.9 % Sodium Chloride w KCl 20 MEQ/1,000 ML MLS IVC ONE (17:25)
[2019-01-20 17:56] LABS: Calcium 8.4 mg/dL (8.6-10.3); Potassium 4.4 mEq/L (3.5-5.1)
[2019-01-20] MEDS: 0.9 % Sodium Chloride w KCl 20 MEQ/1,000 ML MLS IVC PRN ×2 (18:02→22:57)
[2019-01-20] MEDS ORDERED: Sodium Bicarbonate 50 MEQ/50 ML VIAL IVP ONE (18:53)
[2019-01-20 20:07] LABS: Calcium 8.4 mg/dL (8.6-10.3); Potassium 4.3 mEq/L (3.5-5.1)
[2019-01-20] MEDS: *HR* Heparin 5,000 UNIT/ML VIAL SQ SCH (21:44)
[2019-01-20] MEDS: *HR* OxyCODONE/APAP 5/325 TABLET PO PRN (21:44)
[2019-01-20] MEDS ORDERED: 0.9 % Sodium Chloride 1,000 ML IVC PRN (21:48)
[2019-01-20 22:18] LABS: Potassium 4.2 mEq/L (3.5-5.1)
[2019-01-21 00:44] LABS: VBG HCO3 17 mEq/L (21-27); VBG PCO2 38 mmHg (41-51); VBG PH 7.27 pH Units (7.32-7.42); VBG PO2 136 mmHg (25-50)
[2019-01-21 01:00] LABS: BUN/Creatinine Ratio 34 (6-26); Blood Urea Nitrogen 33 mg/dL (8-23); Calcium 7.9 mg/dL (8.6-10.3); Carbon Dioxide 19 mEq/L (23-29); Chloride 117 mEq/L (98-107); Glucose 235 mg/dL (70-105); Osmolality,Calculated 307 (280-300); Potassium 4.2 mEq/L (3.5-5.1); Sodium 141 mEq/L (136-145); eGFR For Non-African Americans 57 (> 60)
[2019-01-21] MEDS ORDERED: Insulin DETEMIR 100 UNIT/ML X5UNITS SQ ONE (01:36)
[2019-01-21 03:30] LABS: Basophils % 0.2 %; Hematocrit 29.3 % (35.3-44.9); Immature Granulocytes % 0.6 % (0-4); Lymphocytes # 0.8 K/mcL (0.6-4.6); Lymphocytes % 4.5 %; Mean Corpuscular HGB Conc 33.8 g/dL (31.6-35.5); Mean Corpuscular Hemoglobin 29.4 pg (28.0-33.3); Mean Platelet Volume 10.3 fL (9.4-12.4); Monocytes # 1.1 K/mcL (0.0-1.3); Monocytes % 6.2 %; Neutrophils # 15.9 K/mcL (1.6-8.9); Platelet Count 254 K/mcL (140-400); Red Blood Count 3.37 M/mcL (3.82-4.97); Red Cell Distribution Width 13.1 % (11.5-14.5); Segmented Neutrophils % 88.5 %
[2019-01-21 03:37] LABS: Hemoglobin 9.9 g/dL (11.5-15.4); Mean Corpuscular Volume 86.9 fL (83.0-100.0)
[2019-01-21 03:50] LABS: BUN/Creatinine Ratio 35 (6-26); Blood Urea Nitrogen 30 mg/dL (8-23); Calcium 7.9 mg/dL (8.6-10.3); Carbon Dioxide 18 mEq/L (23-29); Chloride 116 mEq/L (98-107); Glucose 180 mg/dL (70-105); Osmolality,Calculated 301 (280-300); Potassium 4.1 mEq/L (3.5-5.1); Sodium 140 mEq/L (136-145); eGFR For Non-African Americans > 60 (> 60)
[2019-01-21] MEDS: *HR* Heparin 5,000 UNIT/ML VIAL SQ SCH ×2 (05:26→21:53)
[2019-01-21] MEDS: *HR* OxyCODONE/APAP 5/325 TABLET PO PRN (06:35)
--- NOTE | 2019-01-21 08:12 | Internal Med Progress Note ---
<Goran Otero - Last Filed: 01/21/19 14:54> Hospitalist Progress Note - Encounter Date of Encounter: 01/21/19 - Exam Vitals: Temp Pulse Resp BP Pulse Ox 97.8 F 95 18 101/65 94 01/21/19 11:53 01/21/19 11:53 01/21/19 11:53 01/21/19 11:53 01/21/19 11:53 - Assessment and Plan (1) DKA (diabetic ketoacidoses) Current Visit: Yes Status: Acute (2) DVT prophylaxis Current Visit: No Status: Acute (3) GERD (gastroesophageal reflux disease) Current Visit: Yes Status: Chronic (4) Hip pain, right Current Visit: Yes Status: Acute (5) Back pain Current Visit: No Status: Acute (6) Acute meniscal tear of right knee Current Visit: Yes Status: Acute (7) Diabetes mellitus Current Visit: No Status: Chronic (8) Asthma Current Visit: No Status: Chronic (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 Current Visit: No Status: Chronic (10) Leukocytosis Current Visit: Yes Status: Acute - Time Spent with Patient Total time spent is greater than 50% in coordination of care (as documented) at patient's floor/unit and/or counseling patient: Internal Medicine: Result - Labs CBC & Chem 7: 01/21/19 03:03 01/21/19 12:59 Labs: Short CBC 01/21/19 Range/Units 03:03 WBC 17.9 H (4.3-11.1) K/mcL Hgb 9.9 L D (11.5-15.4) g/dL Hct 29.3 L (35.3-44.9) % Plt Count 254 (140-400) K/mcL Neutrophils # 15.9 H (1.6-8.9) K/mcL BMP 01/20/19 01/20/19 01/20/19 14:50 15:37 17:23 Sodium 137 137 136 Potassium 4.7 D 4.5 4.4 Chloride 103 105 105 Carbon Dioxide 6 L* 5 L* 6 L* BUN 41 H 40 H 40 H Creatinine 1.31 H 1.30 H 1.31 H Glucose 792 H* 725 H* 641 H* Calcium 8.8 8.5 L 8.4 L 05/01/20/19 01/21/19 19:15 21:29 00:31 Sodium 138 140 141 Potassium 4.3 4.2 4.2 Chloride 107 112 H 117 H Carbon Dioxide 8 L* 14 L 19 L BUN 39 H 35 H 33 H Creatinine 1.24 H 1.10 0.97 Glucose 528 H* 390 H 235 H Calcium 8.4 L 8.0 L 7.9 L 01/21/19 01/21/19 03:03 12:59 Sodium 140 138 Potassium 4.1 4.4 Chloride 116 H 111 H Carbon Dioxide 18 L 20 L BUN 30 H 25 H Creatinine 0.85 0.74 Glucose 180 H 232 H Calcium 7.9 L 8.3 L - ABG Interpretation ABG results: PT/INR, D-dimer PT 13.9 Seconds (9.4-12.1) H 01/20/19 11:18 Consult Discharge Plan - Plan Referrals: Tianna Brown CNP [Primary Care Provider] - - Attending Attestation I examined this patient and my medical decision-making was reviewed with the Resident Physician on 01/21/19. I agree with the documented findings, disposition and treatment plan as described except to the extent set forth below. Ms Greenwood is currently admitted for acute DKA and leukocytosis. She remains moderate to high risk due to potential for worsening clinical status. Ms Greenwood is feeling better today but still not baseline. She is still confused to some degree. No CP or SOB. No fever or chills. No abd pain or GI symptoms. No urinary symptoms. Exam Alert Comfortable Mucus membranes dry Heart reg and not tachy No wheeze abd soft No edema Continues to have some issues with short term memory. I/P 1. Acute DKA - improving. Follow labs today. 2. Leukocytosis - no obvious sign of infection. Cultures pending. Get Procalcitonin. 3. Asthma - stable. Further diagnoses and plan as above. <Julio Aleman - Last Filed: 01/21/19 16:29> Hospitalist Progress Note - Encounter Date of Encounter: 01/21/19 Time of Encounter: 09:20 - Subjective Interval History: The patient is resting in bed at time of examination. She still does appear flustered, and says that she does not feel that she is completely regained her status. She still feels as though she is somewhat confused. She does feel that she has a little more awareness than she did yesterday. She says that she has eaten a little bit but overall she has very little appetite and she just does not feel like she wants to eat. She denies significant abdominal pain and says that her nausea has mostly resolved. She is not vomiting this morning. She has no other acute complaints at this time. She now says that she never actually lost her insulin pump, however instead she says that she ran out of supplies for her insulin pump and that is why she was using it at home. She says that her family will be bringing in and that she should be able to get it set up. - Exam Vitals: Temp Pulse Resp BP Pulse Ox 98.3 F 83 17 105/55 90 01/21/19 07:42 01/21/19 07:42 01/21/19 07:42 01/21/19 07:42 01/21/19 07:42 Exam: Gen: Vitals noted. Appears mildly disoriented, however is able to answer questions appropriately. Eyes: anicteric sclerae, moist conjunctivae; no lid-lag; Pupils equal and reactive to light HENT: Atraumatic; oropharynx clear with moist mucous membranes and no mucosal ulcerations; normal hard and soft palate Neck: Trachea midline; supple, no thyromegaly or lymphadenopathy Cardiac: RRR however tachycardic, no murmur, +S1/S2 Pulmonary: CTA bilaterally, no wheezes, rales or rhonchi, equal chest expansion Abdomen: Soft, mild tenderness to palpation throughout, no masses, no hepatosplenomegaly MSK: ROM intact, no joint swelling noted Extremities: no BLE edema, nontender calf, no cyanosis or clubbing Skin: Normal temperature, turgor and texture; no rash, ulcers or subcutaneous nodules Neuro: moves all extremities, no focal deficits. Psych: Alert and oriented 3, however repeats self continuously and cannot organize thoughts appropriately. - Assessment and Plan (1) DKA (diabetic ketoacidoses) Current Visit: Yes Status: Acute Assessment and Plan: Diabetic ketoacidosis, likely secondary to accidental noncompliance Patient apparently misplaced insulin pump following discharge from emergency department States that she has only had one episode of DKA in her life prior to this which was about 6 weeks ago On presentation, patient had serum pH of 7.01, lactic acid 5.0, bicarbonate 6, anion gap of 32. Glucose 1025 No obvious secondary or infectious etiology, however consider recent orthopedic procedures 01/21 DKA has now resolved, and gap 5 with blood glucose under 200 and bicarbonate between 18 and 20 Patient's fluid status appears to be more appropriate today The patient did require approximately 100 units of insulin over 20 hour period The patient was given 10 units of Levemir prior to discontinuing the drip We will give the patient another 20 units of Levemir now, initiate 20 units twice a day Start regular insulin sliding scale as the patient is allergic to lispro in Hum alog formulation The goal be to transition the patient back insulin pump when she can presented Discontinue telemetry, transfer to med/surg (2) Metabolic encephalopathy Current Visit: Yes Status: Acute Assessment and Plan: Patient remained encephalopathic, likely metabolic in nature She does have orientation upon questioning, however thoughts remained scattered and easily loses train of thought and has disorganized thinking According to family this is below her baseline, although clinical systems educator says that she has had somewhat disorganized thinking recently We will continue to monitor, is likely that this will improve over the next 24 hours as electrolytes continue to improve Continue to investigate possible infectious etiologies (3) Leukocytosis Current Visit: Yes Status: Acute Assessment and Plan: Leukocytosis with neutrophil predominance Patient has WBC of 17.9, down from 25.5 however this is following 7 L of fluid The etiology of leukocytosis is unknown, although DKA can cause leukocytosis, it is uncertain why the patient would have such a dramatic increase in white blood cells with the addition of fluids and while on the drip. The patient's physical exam does not appear consistent with any infectious etiology at this time Orthopedic surgery has been consulted to evaluate musculoskeletal complaints Pro calcitonin is ordered Blood cultures pending Continue to monitor (4) Asthma Current Visit: No Status: Chronic Assessment and Plan: No acute exacerbation (5) GERD (gastroesophageal reflux disease) Current Visit: Yes Status: Chronic Assessment and Plan: Continue PPI (6) Hip pain, right Current Visit: Yes Status: Acute Assessment and Plan: Right hip pain, well healing incision s/p ORIF ~1mo ago XR yesterday shows healing fracture Ortho was consulted in ED yesterday, plan for outpatient follow-up today I spoke with Dr. Boyd and he said that they would see the patient in the hospital while she is here (7) Back pain Current Visit: Yes Status: Acute Assessment and Plan: Back pain, lumbar x-rays normal (8) Acute meniscal tear of right knee Current Visit: Yes Status: Acute Assessment and Plan: Tear of the right medial meniscus MRI demonstrates new tear of the right medial meniscus Likely acute, unknown when this injury took place Consults orthopedic surgery (9) DVT prophylaxis Current Visit: No Status: Acute Assessment and Plan: SQ heparin - Time Spent with Patient Total time spent is greater than 50% in coordination of care (as documented) at patient's floor/unit and/or counseling patient: Internal Medicine: Result - Labs CBC & Chem 7: 01/21/19 03:03 01/21/19 12:59 Labs: Short CBC 01/20/19 01/21/19 Range/Units 11:18 03:03 WBC 25.5 H 17.9 H (4.3-11.1) K/mcL Hgb 12.6 9.9 L D (11.5-15.4) g/dL Hct 42.4 29.3 L (35.3-44.9) % Plt Count 384 254 (140-400) K/mcL Neutrophils # 25.0 H 15.9 H (1.6-8.9) K/mcL BMP 01/20/19 01/20/19 01/20/19 11:18 14:50 15:37 Sodium 130 L 137 137 Potassium 6.3 H 4.7 D 4.5 Chloride 92 L 103 105 Carbon Dioxide 6 L* 6 L* 5 L* BUN 44 H 41 H 40 H Creatinine 1.64 H 1.31 H 1.30 H Glucose 1025 H* 792 H* 725 H* Calcium 10.0 8.8 8.5 L 01/20/19 01/20/19 01/20/19 17:23 19:15 21:29 Sodium 136 138 140 Potassium 4.4 4.3 4.2 Chloride 105 107 112 H Carbon Dioxide 6 L* 8 L* 14 L BUN 40 H 39 H 35 H Creatinine 1.31 H 1.24 H 1.10 Glucose 641 H* 528 H* 390 H Calcium 8.4 L 8.4 L 8.0 L 01/21/19 01/21/19 00:31 03:03 Sodium 141 140 Potassium 4.2 4.1 Chloride 117 H 116 H Carbon Dioxide 19 L 18 L BUN 33 H 30 H Creatinine 0.97 0.85 Glucose 235 H 180 H Calcium 7.9 L 7.9 L Cardiac Enzymes 01/20/19 Range/Units 11:18 Troponin I 0.05 H* (< 0.04) ng/mL Liver Function 01/20/19 Range/Units 11:18 Total Bilirubin 0.7 (0.3-1.0) mg/dL Direct Bilirubin 0.3 H (0.0-0.2) mg/dL AST 16 (13-39) Units/L ALT 21 (7-52) Units/L Alkaline Phosphatase 169 H (34-104) Units/L Albumin 4.3 (3.5-5.7) g/dL Urine 01/20/19 Range/Units 12:34 Urine Color Yellow (Yellow) Urine Clarity Clear (Clear) Urine pH 5.0 (5.0-8.0) pH Units Ur Specific [place] 1.027 H (1.010-1.025) Urine Protein Negative (Neg-Trace) mg/dL Urine Glucose (UA) >=1000 H (Normal) mg/dL - ABG Interpretation ABG results: PT/INR, D-dimer PT 13.9 Seconds (9.4-12.1) H 01/20/19 11:18 - Impressions Impressions Chest X-Ray 01/20/19 12:25 IMPRESSION: Chronic pulmonary vascular redistribution. D/ / Osmany Lyon MD / Osmany Lyon MD Interpreting Provider: Osmany Lyon MD <Goran Otero - Last Filed: 01/21/19 14:54> (1) DKA (diabetic ketoacidoses) Qualifiers: Diabetes mellitus type: type 1 Diabetes mellitus complication detail: without coma Qualified Code(s): E10.10 - Type 1 diabetes mellitus with ketoacidosis without coma (3) GERD (gastroesophageal reflux disease) Qualifiers: Esophagitis presence: esophagitis presence not specified Qualified Code(s): K21.9 - Gastro-esophageal reflux disease without esophagitis (5) Back pain Qualifiers: Back pain location: low back pain Chronicity: unspecified Back pain laterality: unspecified Sciatica presence: unspecified whether sciatica present Qualified Code(s): M54.5 - Low back pain (6) Acute meniscal tear of right knee Qualifiers: Encounter type: initial encounter Qualified Code(s): S83.206A - Unspecified tear of unspecified meniscus, current injury, right knee, initial encounter (7) Diabetes mellitus Qualifiers: Diabetes mellitus type: type 1 Diabetes mellitus complication status: with hyperglycemia Qualified Code(s): E10.65 - Type 1 diabetes mellitus with hyperglycemia (8) Asthma Qualifiers: Asthma severity: mild Asthma persistence: intermittent Asthma complication type: uncomplicated Qualified Code(s): J45.20 - Mild intermittent asthma, uncomplicated (10) Leukocytosis Qualifiers: Leukocytosis type: unspecified Qualified Code(s): D72.829 - Elevated white blood cell count, unspecified <Julio Aleman - Last Filed: 01/21/19 16:29> (1) DKA (diabetic ketoacidoses) Qualifiers: Diabetes mellitus type: type 1 Diabetes mellitus complication detail: without coma Qualified Code(s): E10.10 - Type 1 diabetes mellitus with ketoacidosis without coma (3) Leukocytosis Qualifiers: Leukocytosis type: leukemoid reaction Qualified Code(s): D72.823 - Leukemoid reaction (4) Asthma Qualifiers: Asthma severity: mild Asthma persistence: intermittent Asthma complication type: uncomplicated Qualified Code(s): J45.20 - Mild intermittent asthma, uncomplicated (5) GERD (gastroesophageal reflux disease) Qualifiers: Esophagitis presence: esophagitis presence not specified Qualified Code(s): K21.9 - Gastro-esophageal reflux disease without esophagitis (7) Back pain Qualifiers: Back pain location: low back pain Chronicity: unspecified Back pain laterality: unspecified Sciatica presence: unspecified whether sciatica present Qualified Code(s): M54.5 - Low back pain (8) Acute meniscal tear of right knee Qualifiers: Encounter type: initial encounter Qualified Code(s): S83.206A - Unspecified tear of unspecified meniscus, current injury, right knee, initial encounter
--- NOTE | 2019-01-21 08:30 | Orthopedics Progress Note ---
Date of Encounter: 01/21/19 Time of Encounter: 12:40 - Assessment and Plan (1) Fracture of femur Status: Acute Patient had right hip pinning for fracture on 12/18/[address] Boyd Qualifiers: Encounter type: initial encounter Femur location: unspecified portion of femur Fracture type: closed Fracture morphology: unspecified fracture morphology Laterality: right Qualified Code(s): S72.91XA - Unspecified fracture of right femur, initial encounter for closed fracture (2) Acute meniscal tear of right knee Status: Acute Qualifiers: Encounter type: initial encounter Qualified Code(s): S83.206A - Unspecified tear of unspecified meniscus, current injury, right knee, initial encounter Subjective Principal diagnosis: history of hip surgery Interval history: Patient had right hip pinning for fracture on 12/18/[address] Boyd Patient seen as courtesy visit Patient has been nwb to rle secondary to fracture Xrays 01/19/19 demonstrate intact hardware with appropriate fracture alignment Patient had MRI of the right knee on 01/19 demonstrating 1. Posterior horn medial meniscal tear, 2. Anterior horn lateral meniscal degeneration, 3. Osteoarthritis, and 4. Medial and lateral gastrocnemius strains. Patient seen at bedside with family members at bedside. Patient intermittently confused. Incision c/d/i well healed. ROM improving. Right knee no acute abnormality noted, no swelling, erythema, irritation Motion intact Patient neurovascularly intact. Keep outpatient follow up as scheduled 01/27 4:25pm with Dr. Boyd. If patient continues inpatient, will see as inpatient at this time. Objective Vital signs: Vital Signs Temp Pulse Resp BP Pulse Ox 01/21/19 07:42 98.3 F 83 17 105/55 90 01/21/19 03:23 99.2 F 84 16 104/61 90 01/21/19 00:21 98.9 F 89 16 100/56 91 01/20/19 19:00 99.4 F 98 18 109/56 97 01/20/19 18:01 98.2 F 102 18 110/73 92 01/20/19 16:29 113 26 107/52 100 01/20/19 15:32 113 28 115/87 100 01/20/19 13:58 113 26 110/87 100 01/20/19 13:30 106 24 103/40 100 01/20/19 12:41 107 24 91/55 100 01/20/19 12:23 107 24 114/33 99 01/20/19 11:47 103 26 73/45 98 01/20/19 11:17 97.9 F 99 26 119/44 100 01/20/19 11:15 100 Intake and Output 01/20/19 01/21/19 01/21/19 23:59 07:59 15:59 Intake Total 2100 / 5101 1542 / 1542 Output Total 400 / 400 Balance 2100 5101 1142 / 1142 Intake: IV Fluids 2100 1542 / 1542 0.9 % Sodium Chloride 1,000 ML 1000 / 1000 @ 999 mls/hr IVC .Q1H1M ONE Rx# :[id number] KCl 20 mEq in 0.9% Sodium 1000 / 1000 1000 / 1000 Chloride 20 meq In 1,000 ml @ 250 mls/hr IVC .Q4H PRN Rx#: [id number] KCl 20mEq IN D5%-0.45 NACL 20 500 / 500 meq In 1,000 ml @ 250 mls/hr IVC .Q4H PRN Rx#:[id number] HumuLIN R 100 UNIT In 0.9 % 101 / 101 42 / 42 Sodium Chloride 100 ML @ 0.1 UNIT/KG/HR 7.055 mls/hr IVC CONT AMANDA Rx#:[id number] Output: Urine 400 / 400 Other: Blood Glucose* 264 187 - Labs CBC & BMP: 01/23/19 05:16 01/23/19 05:16 Labs: Abnormal lab results WBC 17.9 K/mcL (4.3-11.1) H 01/21/19 03:03 RBC 3.37 M/mcL (3.82-4.97) L 01/21/19 03:03 Hgb 9.9 g/dL (11.5-15.4) L D 01/21/19 03:03 Hct 29.3 % (35.3-44.9) L 01/21/19 03:03 MCHC 29.7 g/dL (31.6-35.5) L 01/20/19 11:18 8.0 % (0-4) H 01/20/19 11:18 15.9 K/mcL (1.6-8.9) H 01/21/19 03:03 1+ (Not Present) A 01/20/19 11:18 PT 13.9 Seconds (9.4-12.1) H 01/20/19 11:18 APTT 24.7 Seconds (26.0-36.0) L 01/20/19 11:18 VBG pH 7.27 pH Units (7.32-7.42) L 01/21/19 00:40 VBG pCO2 38 mmHg (41-51) L 01/21/19 00:40 VBG pO2 136 mmHg (25-50) H 01/21/19 00:40 VBG HCO3 17 mEq/L (21-27) L 01/21/19 00:40 Sodium 130 mEq/L (136-145) L 01/20/19 11:18 Potassium 6.3 mEq/L (3.5-5.1) H 01/20/19 11:18 Chloride 116 mEq/L (98-107) H 01/21/19 03:03 Carbon Dioxide 18 mEq/L (23-29) L 01/21/19 03:03 BUN 30 mg/dL (8-23) H 01/21/19 03:03 1.24 mg/dL (0.60-1.20) H 01/20/19 19:15 Est GFR ( Amer) 52 (> 60) L 01/20/19 19:15 Est GFR (Non-Af Amer) 57 (> 60) L 01/21/19 00:31 35 (6-26) H 01/21/19 03:03 Glucose 180 mg/dL (70-105) H 01/21/19 03:03 POC Glucose 165 mg/dL (70-99) H 01/21/19 03:14 10.3 % (-5.6) H 01/20/19 15:37 301 (280-300) H 01/21/19 03:03 Lactic Acid 2.5 mmol/L (0.5-2.2) H 01/20/19 17:23 Calcium 7.9 mg/dL (8.6-10.3) L 01/21/19 03:03 Phosphorus 7.4 mg/dL (2.7-4.5) H 01/20/19 11:18 Magnesium 2.7 mg/dL (1.6-2.6) H 01/20/19 11:18 0.3 mg/dL (0.0-0.2) H 01/20/19 11:18 169 Units/L (34-104) H 01/20/19 11:18 0.05 ng/mL (< 0.04) H* 01/20/19 11:18 4 Units/L (11-82) L 01/20/19 11:18 Beta-Hydroxybutyric Acd > 2.00 mmol/L (0.02-0.27) H 01/20/19 11:18 Ur Specific [place] 1.027 (1.010-1.025) H 01/20/19 12:34 >=1000 mg/dL (Normal) H 01/20/19 12:34 80 mg/dL (Negative) H 01/20/19 12:34 Consult Discharge Plan - Plan Additional Instructions: Follow-up with Dr. Perez within 7-10 days if possible. Transition to insulin pump when parts are available. Take 15U Levemir at night, and 5U levemir in morning. Check blood glucose every morning and if it is <120, decrease night-time levemir by 2U. If it is >220, increase levemir by 1U. Check blood glucose at mealtime, administer Novolog per the following sliding scale: Blood glucose 150-200, take 2U Blood glucose 201-250, take 4U Blood glucose 251-300, take 6U Blood glucose 301-350, take 8U Blood glucose 351-400, take 10U Blood glucose 401-450, take 12U Blood glucose >451, take 12U and call your physician If your blood glucose begins to stay >250 during the day, call your physician as you may need an increase in your basal or short acting insulin. If you become nauseated, use Zofran sublingual tab for relief. If you are unable to eat or drink without vomiting, go to the ER. Take Doxycycline for 7 days. If you have worsened fevers, chills, sweats, or shortness of breath, return to the ED. Referrals: Tianna Brown CNP [Primary Care Provider] - (Web-request completed 01/23/2019) Prescriptions: Doxycycline 100 mg PO BID #14 capsule Insulin DETEMIR [Levemir Flextouch] 100 unit SQ BID 30 Days #6 [email or web address] Insulin ASPART [Novolog Flexpen] 100 unit SQ QID 30 Days #6 insuln.pen Ondansetron ODT [Zofran ODT] 4 mg SL Q6HR #30 tab.[email or web address]
[2019-01-21] MEDS ORDERED: Insulin DETEMIR 100 UNIT/ML X5UNITS SQ SCH ×3 (09:00→21:00)
[2019-01-21] MEDS ORDERED: Insulin Human Regular 300 UNIT/3 ML per UNIT SQ SCH ×2 (11:30→21:00)
[2019-01-21] MEDS ORDERED: Insulin LISPRO 300 UNITS/3 ML VIAL SQ SCH (12:00)
[2019-01-21 13:33] LABS: BUN/Creatinine Ratio 34 (6-26); Blood Urea Nitrogen 25 mg/dL (8-23); Calcium 8.3 mg/dL (8.6-10.3); Carbon Dioxide 20 mEq/L (23-29); Chloride 111 mEq/L (98-107); Glucose 232 mg/dL (70-105); Osmolality,Calculated 298 (280-300); Potassium 4.4 mEq/L (3.5-5.1); Sodium 138 mEq/L (136-145); eGFR For Non-African Americans > 60 (> 60)
[2019-01-21] MEDS ORDERED: *HR* Dextrose 50 % in Water (Syg) 50 ML SYRINGE IVP PRN (15:02)
[2019-01-21] MEDS: Insulin Human Regular 300 UNIT/3 ML per UNIT SQ SCH ×2 (17:23→21:53)
[2019-01-21] MEDS ORDERED: Sennosides/Docusate Sodium TABLET PO SCH (21:00)
[2019-01-21] MEDS: Insulin DETEMIR 100 UNIT/ML X5UNITS SQ SCH (21:53)
[2019-01-21] MEDS: Sennosides/Docusate Sodium TABLET PO SCH (21:54)
[2019-01-22 06:12] LABS: Basophils % 0.5 %; Eosinophils # 0.1 K/mcL (0.0-0.6); Eosinophils % 0.9 %; Hematocrit 29.7 % (35.3-44.9); Hemoglobin 9.9 g/dL (11.5-15.4); Immature Granulocytes % 0.1 % (0-4); Lymphocytes # 1.4 K/mcL (0.6-4.6); Lymphocytes % 16.4 %; Mean Corpuscular HGB Conc 33.3 g/dL (31.6-35.5); Mean Corpuscular Hemoglobin 28.6 pg (28.0-33.3); Mean Corpuscular Volume 85.8 fL (83.0-100.0); Mean Platelet Volume 10.1 fL (9.4-12.4); Monocytes # 0.4 K/mcL (0.0-1.3); Monocytes % 4.8 %; Platelet Count 209 K/mcL (140-400); Red Blood Count 3.46 M/mcL (3.82-4.97); Red Cell Distribution Width 13.4 % (11.5-14.5); Segmented Neutrophils % 77.3 %
[2019-01-22 06:14] LABS: Neutrophils # 6.7 K/mcL (1.6-8.9)
[2019-01-22 06:30] LABS: Alanine Aminotransferase 21 Units/L (7-52); Albumin 3.1 g/dL (3.5-5.7); Albumin/Globulin Ratio 1.7 (1.1-2.2); Alkaline Phosphatase 116 Units/L (34-104); Aspartate Amino Transferase 24 Units/L (13-39); BUN/Creatinine Ratio 25 (6-26); Bilirubin,Total 0.4 mg/dL (0.3-1.0); Blood Urea Nitrogen 13 mg/dL (8-23); Calcium 8.3 mg/dL (8.6-10.3); Carbon Dioxide 22 mEq/L (23-29); Chloride 110 mEq/L (98-107); Globulin 1.8 g/dL (2.4-3.5); Glucose 61 mg/dL (70-105); Osmolality,Calculated 290 (280-300); Potassium 3.5 mEq/L (3.5-5.1); Sodium 141 mEq/L (136-145); Total Protein 4.9 g/dL (6.4-8.9); eGFR For Non-African Americans > 60 (> 60)
[2019-01-22] MEDS: *HR* Heparin 5,000 UNIT/ML VIAL SQ SCH ×3 (06:34→20:09)
[2019-01-22] MEDS: Insulin Human Regular 300 UNIT/3 ML per UNIT SQ SCH ×4 (08:10→19:55)
[2019-01-22] MEDS: Insulin DETEMIR 100 UNIT/ML X5UNITS SQ SCH ×2 (08:10→19:55)
[2019-01-22] MEDS: Sennosides/Docusate Sodium TABLET PO SCH ×2 (08:22→19:54)
[2019-01-22] MEDS: *HR* OxyCODONE/APAP 5/325 TABLET PO PRN ×2 (09:43→18:02)
[2019-01-22] MEDS ORDERED: Insulin DETEMIR 100 UNIT/ML X5UNITS SQ ONE (10:51)
--- NOTE | 2019-01-22 16:34 | Internal Med Progress Note ---
<Julio Aleman - Last Filed: 01/22/19 17:09> Hospitalist Progress Note - Encounter Date of Encounter: 01/22/19 Time of Encounter: 09:55 - Exam Vitals: Temp Pulse Resp BP Pulse Ox 98 F 78 20 126/70 96 01/22/19 11:22 01/22/19 11:22 01/22/19 11:22 01/22/19 11:22 01/22/19 11:22 Exam: Gen: Vitals noted. NAD Eyes: anicteric sclerae, moist conjunctivae; no lid-lag; Pupils equal and reactive to light HENT: Atraumatic; oropharynx clear with moist mucous membranes and no mucosal ulcerations; normal hard and soft palate Neck: Trachea midline; supple, no thyromegaly or lymphadenopathy Cardiac: RRR however tachycardic, no murmur, +S1/S2 Pulmonary: Crackles noted in the right and middle lower lobe with positive egophany notable Abdomen: Soft, mild tenderness to palpation throughout, no masses, no h epatosplenomegaly MSK: ROM intact, no joint swelling noted Extremities: no BLE edema, nontender calf, no cyanosis or clubbing Skin: Normal temperature, turgor and texture; no rash, ulcers or subcutaneous nodules Neuro: moves all extremities, no focal deficits. Psych: Alert and oriented 3, much more appropriate today - Assessment and Plan (1) DKA (diabetic ketoacidoses) Current Visit: Yes Status: Acute Assessment and Plan: Diabetic ketoacidosis, likely secondary to accidental noncompliance Patient apparently misplaced insulin pump following discharge from emergency department States that she has only had one episode of DKA in her life prior to this which was about 6 weeks ago On presentation, patient had serum pH of 7.01, lactic acid 5.0, bicarbonate 6, a nion gap of 32. Glucose 1025 No obvious secondary or infectious etiology, however consider recent orthopedic procedures 01/22 Resolved, on basal and sliding scale insulin. Patient was planning to go back on the insulin pump today however healthcare educator would not put it up because she received 5 units Levemir earlier in the day Likely the patient could have gone to insulin pump with this, it was only meant to prevent her from going into DKA while waiting for the pump to arrive which was meant to be in the evening Plan for insulin pump in the morning. (2) Metabolic encephalopathy Current Visit: Yes Status: Resolved Assessment and Plan: Appears to have largely resolved (3) Leukocytosis Current Visit: Yes Status: Acute Assessment and Plan: Leukocytosis with neutrophil predominance WBC 25.5 -> 17.9 -> 8.6 I suspect that the patient does have a potential aspiration pneumonia I will treat accordingly with Unasyn (4) Asthma Current Visit: No Status: Chronic Assessment and Plan: No acute exacerbation (5) GERD (gastroesophageal reflux disease) Current Visit: Yes Status: Chronic Assessment and Plan: Continue PPI (6) Hip pain, right Current Visit: Yes Status: Acute Assessment and Plan: Right hip pain, well healing incision s/p ORIF ~1mo ago XR yesterday shows healing fracture Ortho was consulted in ED yesterday, plan for outpatient follow-up today I spoke with Dr. Boyd and he said that they would see the patient in the hospital while she is here (7) Back pain Current Visit: Yes Status: Acute Assessment and Plan: Back pain, lumbar x-rays normal (8) Acute meniscal tear of right knee Current Visit: Yes Status: Acute Assessment and Plan: Tear of the right medial meniscus MRI demonstrates new tear of the right medial meniscus Likely acute, unknown when this injury took place Consults orthopedic surgery (9) DVT prophylaxis Current Visit: No Status: Acute Assessment and Plan: SQ heparin (10) Pneumonia Current Visit: Yes Status: Suspected Assessment and Plan: Suspected pneumonia Patient has leukocytosis which is appearing to resolve Also went into DKA quite quickly Physical exam pertinent for crackles and positive egophony in the right lower and middle lobe She does complain of persistent and worsening cough over the past several days I will treat the patient with levaquin, monitor clinical appearance - Time Spent with Patient Total time spent is greater than 50% in coordination of care (as documented) at patient's floor/unit and/or counseling patient: Internal Medicine: Result - Labs CBC & Chem 7: 01/22/19 05:38 01/22/19 05:38 Labs: Short CBC 01/22/19 Range/Units 05:38 WBC 8.6 D (4.3-11.1) K/mcL Hgb 9.9 L (11.5-15.4) g/dL Hct 29.7 L (35.3-44.9) % Plt Count 209 (140-400) K/mcL Neutrophils # 6.7 (1.6-8.9) K/mcL BMP 01/22/19 05:38 Sodium 141 Potassium 3.5 Chloride 110 H Carbon Dioxide 22 L BUN 13 Creatinine 0.52 L Glucose 61 L Calcium 8.3 L Liver Function 01/22/19 Range/Units 05:38 Total Bilirubin 0.4 (0.3-1.0) mg/dL AST 24 (13-39) Units/L ALT 21 (7-52) Units/L Alkaline Phosphatase 116 H (34-104) Units/L Albumin 3.1 L (3.5-5.7) g/dL - ABG Interpretation ABG results: PT/INR, D-dimer PT 13.9 Seconds (9.4-12.1) H 01/20/19 11:18 - Impressions Impressions Chest X-Ray 01/22/19 08:58 IMPRESSION: 1. Minimal bibasilar atelectasis. 2. Trace bilateral effusions. 3. Pulmonary vascular congestion. D/ / Julio Cota MD / Julio Cota MD Interpreting Provider: Julio Cota MD Consult Discharge Plan - Plan Referrals: Tianna Brown CNP [Primary Care Provider] - <Goran Otero - Last Filed: 01/22/19 17:44> Hospitalist Progress Note - Encounter Date of Encounter: 01/22/19 - Exam Vitals: Temp Pulse Resp BP Pulse Ox 97.9 F 90 20 120/72 95 01/22/19 17:29 01/22/19 17:29 01/22/19 17:29 01/22/19 17:29 01/22/19 17:29 - Assessment and Plan (1) DKA (diabetic ketoacidoses) Current Visit: Yes Status: Acute (2) Asthma Current Visit: No Status: Chronic (3) DVT prophylaxis Current Visit: No Status: Acute (4) GERD (gastroesophageal reflux disease) Current Visit: Yes Status: Chronic (5) Hip pain, right Current Visit: Yes Status: Acute (6) Back pain Current Visit: Yes Status: Acute (7) Acute meniscal tear of right knee Current Visit: Yes Status: Acute (8) Leukocytosis Current Visit: Yes Status: Acute (9) Metabolic encephalopathy Current Visit: Yes Status: Resolved (10) Pneumonia Current Visit: Yes Status: Suspected - Time Spent with Patient Total time spent is greater than 50% in coordination of care (as documented) at patient's floor/unit and/or counseling patient: Internal Medicine: Result - Labs CBC & Chem 7: 01/22/19 05:38 01/22/19 05:38 Labs: Short CBC 01/22/19 Range/Units 05:38 WBC 8.6 D (4.3-11.1) K/mcL Hgb 9.9 L (11.5-15.4) g/dL Hct 29.7 L (35.3-44.9) % Plt Count 209 (140-400) K/mcL Neutrophils # 6.7 (1.6-8.9) K/mcL BMP 01/22/19 05:38 Sodium 141 Potassium 3.5 Chloride 110 H Carbon Dioxide 22 L BUN 13 Creatinine 0.52 L Glucose 61 L Calcium 8.3 L Liver Function 01/22/19 Range/Units 05:38 Total Bilirubin 0.4 (0.3-1.0) mg/dL AST 24 (13-39) Units/L ALT 21 (7-52) Units/L Alkaline Phosphatase 116 H (34-104) Units/L Albumin 3.1 L (3.5-5.7) g/dL - ABG Interpretation ABG results: PT/INR, D-dimer PT 13.9 Seconds (9.4-12.1) H 01/20/19 11:18 - Impressions Impressions Chest X-Ray 01/22/19 08:58 IMPRESSION: 1. Minimal bibasilar atelectasis. 2. Trace bilateral effusions. 3. Pulmonary vascular congestion. D/ / Julio Cota MD / Julio Cota MD Interpreting Provider: Julio Cota MD - Attending Attestation I examined this patient and my medical decision-making was reviewed with the Resident Physician on 01/22/19. I agree with the documented findings, disposition and treatment plan as described except to the extent set forth below. Ms Greenwood is currently admitted for acute DKA. She remains moderate to high risk due to potential for worsening clinical status. Ms Greenwood is resting. Her procalcitonin is elevated. CXR negative. No fever or chills. No GI issues. Exam alert comfortable Mucus membranes dry Heart reg and not tachy Crackles R base area Abd soft and nontender No edema I/P 1. DKA - resolved 2. Possible asp pneumonia - CXR neg but patient high risk for asp with nausea and vomiting. Procal elevated. Will treat 3. Asthma Further diagnoses and plan as above. <Julio Aleman - Last Filed: 01/22/19 17:09> (1) DKA (diabetic ketoacidoses) Qualifiers: Diabetes mellitus type: type 1 Diabetes mellitus complication detail: without coma Qualified Code(s): E10.10 - Type 1 diabetes mellitus with ketoacidosis without coma (3) Leukocytosis Qualifiers: Leukocytosis type: leukemoid reaction Qualified Code(s): D72.823 - Leukemoid reaction (4) Asthma Qualifiers: Asthma severity: mild Asthma persistence: intermittent Asthma complication type: uncomplicated Qualified Code(s): J45.20 - Mild intermittent asthma, uncomplicated (5) GERD (gastroesophageal reflux disease) Qualifiers: Esophagitis presence: esophagitis presence not specified Qualified Code(s): K21.9 - Gastro-esophageal reflux disease without esophagitis (7) Back pain Qualifiers: Back pain location: low back pain Chronicity: unspecified Back pain laterality: unspecified Sciatica presence: unspecified whether sciatica present Qualified Code(s): M54.5 - Low back pain (8) Acute meniscal tear of right knee Qualifiers: Encounter type: initial encounter Qualified Code(s): S83.206A - Unspecified tear of unspecified meniscus, current injury, right knee, initial encounter (10) Pneumonia Qualifiers: Pneumonia type: due to unspecified organism Laterality: right Lung location: lower lobe of lung Qualified Code(s): J18.1 - Lobar pneumonia, unspecified organism <Goran Otero - Last Filed: 01/22/19 17:44> (1) DKA (diabetic ketoacidoses) Qualifiers: Diabetes mellitus type: type 1 Diabetes mellitus complication detail: without coma Qualified Code(s): E10.10 - Type 1 diabetes mellitus with ketoacidosis without coma (2) Asthma Qualifiers: Asthma severity: mild Asthma persistence: intermittent Asthma complication type: uncomplicated Qualified Code(s): J45.20 - Mild intermittent asthma, uncomplicated (4) GERD (gastroesophageal reflux disease) Qualifiers: Esophagitis presence: esophagitis presence not specified Qualified Code(s): K21.9 - Gastro-esophageal reflux disease without esophagitis (6) Back pain Qualifiers: Back pain location: low back pain Chronicity: unspecified Back pain laterality: unspecified Sciatica presence: unspecified whether sciatica present Qualified Code(s): M54.5 - Low back pain (7) Acute meniscal tear of right knee Qualifiers: Encounter type: initial encounter Qualified Code(s): S83.206A - Unspecified tear of unspecified meniscus, current injury, right knee, initial encounter (8) Leukocytosis Qualifiers: Leukocytosis type: leukemoid reaction Qualified Code(s): D72.823 - Leukemoid reaction (10) Pneumonia Qualifiers: Pneumonia type: due to unspecified organism Laterality: right Lung location: lower lobe of lung Qualified Code(s): J18.1 - Lobar pneumonia, unspecified organism
[2019-01-22] MEDS ORDERED: Levofloxacin 750 MG/150 ML 750 MG/150 ML BAG IVPB SCH (18:00)
[2019-01-23] MEDS: *HR* OxyCODONE/APAP 5/325 TABLET PO PRN ×3 (01:45→15:03)
[2019-01-23] MEDS: *HR* Heparin 5,000 UNIT/ML VIAL SQ SCH ×2 (05:37→15:04)
[2019-01-23 06:09] LABS: Basophils % 0.6 %; Eosinophils # 0.1 K/mcL (0.0-0.6); Eosinophils % 2.5 %; Hemoglobin 10.7 g/dL (11.5-15.4); Immature Granulocytes % 0.4 % (0-4); Lymphocytes # 1.6 K/mcL (0.6-4.6); Lymphocytes % 30.6 %; Mean Corpuscular HGB Conc 32.4 g/dL (31.6-35.5); Mean Corpuscular Hemoglobin 28.2 pg (28.0-33.3); Mean Corpuscular Volume 87.1 fL (83.0-100.0); Mean Platelet Volume 10.1 fL (9.4-12.4); Monocytes # 0.4 K/mcL (0.0-1.3); Monocytes % 6.7 %; Neutrophils # 3.1 K/mcL (1.6-8.9); Platelet Count 216 K/mcL (140-400); Red Blood Count 3.79 M/mcL (3.82-4.97); Red Cell Distribution Width 13.4 % (11.5-14.5); Segmented Neutrophils % 59.2 %
[2019-01-23 06:29] LABS: BUN/Creatinine Ratio 15 (6-26); Blood Urea Nitrogen 8 mg/dL (8-23); Calcium 8.6 mg/dL (8.6-10.3); Carbon Dioxide 27 mEq/L (23-29); Chloride 109 mEq/L (98-107); Glucose 51 mg/dL (70-105); Osmolality,Calculated 290 (280-300); Sodium 142 mEq/L (136-145); eGFR For Non-African Americans > 60 (> 60)
[2019-01-23] MEDS: Sennosides/Docusate Sodium TABLET PO SCH (08:14)
[2019-01-23] MEDS: Insulin Human Regular 300 UNIT/3 ML per UNIT SQ SCH ×2 (08:15→11:54)
[2019-01-23] MEDS: Insulin DETEMIR 100 UNIT/ML X5UNITS SQ SCH (08:15)
[2019-01-23] MEDS ORDERED: Ondansetron 4 MG/2 ML VIAL IVP ONE (10:25)
[2019-01-23 11:49] VITALS: BP 127/69
--- NOTE | 2019-01-23 14:24 | Discharge Summary ---
<Julio Aleman - Last Filed: 01/23/19 14:22> - NOTES TO OUTPATIENT PROVIDER Notes to Outpatient Provider: Presented with DKA. Lost Insulin pump, does not have one part. Also had suspected PNA. Dc'd on Levemir w/ novolog SSI, Zofran prn and Doxycycline. Will plan to go back onto pump when has available. Orders not resulted at time of discharge: Pending orders 01/20/19 19:15 Culture,Blood [BC] Routine 01/22/19 17:27 Legionella Antigen [RM] Routine S. Pneumoniae Antigen [RM] Routine Date of Encounter: 01/23/19 Time of Encounter: 08:50 - Discharge Diagnosis (1) DKA (diabetic ketoacidoses) Priority: Primary Status: Acute Qualifiers: Diabetes mellitus type: type 1 Diabetes mellitus complication detail: without coma Qualified Code(s): E10.10 - Type 1 diabetes mellitus with ketoacidosis without coma (2) Metabolic encephalopathy Priority: Secondary Status: Resolved (3) Leukocytosis Priority: Secondary Status: Acute Qualifiers: Leukocytosis type: leukemoid reaction Qualified Code(s): D72.823 - Leukemoid reaction (4) Asthma Priority: Secondary Status: Chronic Qualifiers: Asthma severity: mild Asthma persistence: intermittent Asthma complication type: uncomplicated Qualified Code(s): J45.20 - Mild intermittent asthma, uncomplicated (5) GERD (gastroesophageal reflux disease) Priority: Secondary Status: Chronic Qualifiers: Esophagitis presence: esophagitis presence not specified Qualified Code(s): K21.9 - Gastro-esophageal reflux disease without esophagitis (6) Hip pain, right Priority: Secondary Status: Acute (7) Back pain Priority: Secondary Status: Acute Qualifiers: Back pain location: low back pain Chronicity: unspecified Back pain laterality: unspecified Sciatica presence: unspecified whether sciatica present Qualified Code(s): M54.5 - Low back pain (8) Acute meniscal tear of right knee Priority: Secondary Status: Acute Qualifiers: Encounter type: initial encounter Qualified Code(s): S83.206A - Unspecified tear of unspecified meniscus, current injury, right knee, initial encounter (9) Pneumonia Priority: Secondary Status: Suspected Qualifiers: Pneumonia type: due to unspecified organism Laterality: right Lung location: lower lobe of lung Qualified Code(s): J18.1 - Lobar pneumonia, unspecified organism Hospital course: Ms. Greenwood is a 69 year old female Discharge discussed with: patient, family, nurse - Time Spent with Patient Total time spent providing and/or coordinating discharge services: - Discharge Medications Prescriptions: New Insulin DETEMIR [Levemir Flextouch] 100 unit SQ BID 30 Days #6 insuln.pen Insulin ASPART [Novolog Flexpen] 100 unit SQ QID 30 Days #6 insuln.pen Doxycycline 100 mg PO BID #14 capsule Ondansetron ODT [Zofran ODT] 4 mg SL Q6HR #30 tab.rapdis Continued Alendronate Sodium [Fosamax] 70 mg PO WE Cyanocobalamin/Folic AC/Vit B6 [Folbee Tablet] 1 each PO DAILY Lisinopril [Zestril] 5 mg PO HS Montelukast [Singulair] 10 mg PO DAILY@1800 Pantoprazole Sodium [Protonix] 20 mg PO DAILY Simvastatin [Zocor] 40 mg PO HS Subcutaneous Insulin Pump [T:Slim] 1 each MC AD Multivitamin [One-Daily Multi-Vitamin] 1 tab PO DAILY Home Medications: Alendronate Sodium [Fosamax] 70 mg PO WE 11/26/18 [History] Cyanocobalamin/Folic AC/Vit B6 [Folbee Tablet] 1 each PO DAILY 11/26/18 [History] Lisinopril [Zestril] 5 mg PO HS 11/26/18 [History] Montelukast [Singulair] 10 mg PO DAILY@1800 11/26/18 [History] Pantoprazole Sodium [Protonix] 20 mg PO DAILY 11/26/18 [History] Simvastatin [Zocor] 40 mg PO HS 11/26/18 [History] Multivitamin [One-Daily Multi-Vitamin] 1 tab PO DAILY 12/16/18 [History] Subcutaneous Insulin Pump [T:Slim] 1 each MC AD 12/16/18 [History] Doxycycline 100 mg PO BID #14 capsule 01/23/19 [Rx] Insulin ASPART [Novolog Flexpen] 100 unit SQ QID 30 Days #6 insuln.pen 01/23/19 [Rx] Insulin DETEMIR [Levemir Flextouch] 100 unit SQ BID 30 Days #6 insuln.pen 01/23/19 [Rx] Ondansetron ODT [Zofran ODT] 4 mg SL Q6HR #30 tab.rapdis 01/23/19 [Rx] Allergies/Adverse Reactions: Allergy/AdvReac Type Severity Reaction Status Date / Time cephalexin Allergy Difficulty Verified 12/16/18 17:21 Breathing egg Allergy Vomiting Verified 09/04/18 17:35 Penicillins Allergy Rash Verified 12/16/18 17:21 codeine AdvReac Nausea Verified 12/16/18 17:21 insulin lispro AdvReac Rash Verified 12/16/18 17:21 [From Humalog Mix] insulin lispro protamine AdvReac Rash Verified 12/16/18 17:21 [From Humalog Mix] Date of admission: 01/20/19 16:39 Primary care physician: Tianna Brown CNP Consults: 01/20/19 16:46 Consult to Orthopedic Surgery [CONS] Routine Consulting Provider: [facility] Reason for Consult: Right medial meniscal tear. Right hip pain s/p hip fx repair. DKA Time Notified: 16:47 Call Completed: Yes 01/20/19 18:07 Consult to Dermatological Surgeon [CONS] Routine Reason for SW Consult: d/c planning 01/22/19 10:52 Consult to Physical Therapy [CONS] Routine Comment: Evaluate, develop and implement POC Reason for Consult: Recent hip surg, needs to be mobilized Does patient have active BEDREST order?: No Is patient medically & hemodynamically stable?: Yes Discharging clinician: Julio Aleman Anticipated date of discharge: 01/23/19 - Constitutional Vitals: Temp Pulse Resp BP Pulse Ox 97.4 F L 73 20 127/69 94 01/23/19 11:41 01/23/19 11:41 01/23/19 11:41 01/23/19 11:41 01/23/19 11:41 Exam: Gen: Vitals noted. NAD Eyes: anicteric sclerae, moist conjunctivae; no lid-lag; Pupils equal and reactive to light HENT: Atraumatic; oropharynx clear with moist mucous membranes and no mucosal ulcerations; normal hard and soft palate Neck: Trachea midline; supple, no thyromegaly or lymphadenopathy Cardiac: RRR however tachycardic, no murmur, +S1/S2 Pulmonary: Crackles noted in the right and middle lower lobe with positive egophany notable Abdomen: Soft, mild tenderness to palpation throughout, no masses, no hepatosplenomegaly MSK: ROM intact, no joint swelling noted Extremities: no BLE edema, nontender calf, no cyanosis or clubbing Skin: Normal temperature, turgor and texture; no rash, ulcers or subcutaneous nodules Neuro: moves all extremities, no focal deficits. Psych: Alert and oriented 3, much more appropriate today - Patient Status Disposition: Home, Self-Care Condition: Good Functional capacity at discharge: independent ambulation Overall status at discharge: patient is back to baseline - Discharge Instructions Follow Up With: Tianna Brown CNP [Primary Care Provider] - Forms: ED Satisfaction Letter Additional Instructions: Follow-up with Dr. Perez within 7-10 days if possible. Transition to insulin pump when parts are available. Take 15U Levemir at night, and 5U levemir in morning. Check blood glucose every morning and if it is <120, decrease night-time levemir by 2U. If it is >220, increase levemir by 1U. Check blood glucose at mealtime, administer Novolog per the following sliding scale: Blood glucose 150-200, take 2U Blood glucose 201-250, take 4U Blood glucose 251-300, take 6U Blood glucose 301-350, take 8U Blood glucose 351-400, take 10U Blood glucose 401-450, take 12U Blood glucose >451, take 12U and call your physician If your blood glucose begins to stay >250 during the day, call your physician as you may need an increase in your basal or short acting insulin. If you become nauseated, use Zofran sublingual tab for relief. If you are unable to eat or drink without vomiting, go to the ER. Take Doxycycline for 7 days. If you have worsened fevers, chills, sweats, or shortness of breath, return to the ED. - Diet and Activity Activity: increase activity as tolerated Diet: diabetic diet <Goran Otero - Last Filed: 01/23/19 15:01> Orders not resulted at time of discharge: Pending orders 01/20/19 19:15 Culture,Blood [BC] Routine 01/22/19 17:27 Legionella Antigen [RM] Routine S. Pneumoniae Antigen [RM] Routine Date of Encounter: 01/23/19 - Discharge Diagnosis (1) DKA (diabetic ketoacidoses) Status: Acute Qualifiers: Diabetes mellitus type: type 1 Diabetes mellitus complication detail: without coma Qualified Code(s): E10.10 - Type 1 diabetes mellitus with ketoacidosis without coma (2) Asthma Status: Chronic Qualifiers: Asthma severity: mild Asthma persistence: intermittent Asthma complication type: uncomplicated Qualified Code(s): J45.20 - Mild intermittent asthma, uncomplicated (3) GERD (gastroesophageal reflux disease) Status: Chronic Qualifiers: Esophagitis presence: esophagitis presence not specified Qualified Code(s): K21.9 - Gastro-esophageal reflux disease without esophagitis (4) Hip pain, right Status: Acute (5) Back pain Status: Acute Qualifiers: Back pain location: low back pain Chronicity: unspecified Back pain laterality: unspecified Sciatica presence: unspecified whether sciatica present Qualified Code(s): M54.5 - Low back pain (6) Acute meniscal tear of right knee Status: Acute Qualifiers: Encounter type: initial encounter Qualified Code(s): S83.206A - Unspecified tear of unspecified meniscus, current injury, right knee, initial encounter (7) Leukocytosis Status: Resolved Qualifiers: Leukocytosis type: leukemoid reaction Qualified Code(s): D72.823 - Leukemoid reaction (8) Metabolic encephalopathy Status: Resolved (9) Pneumonia Status: Suspected Qualifiers: Pneumonia type: due to unspecified organism Laterality: right Lung location: lower lobe of lung Qualified Code(s): J18.1 - Lobar pneumonia, unspecified organism Hospital course: Ms. Greenwood is a 69 year old female - Time Spent with Patient Total time spent providing and/or coordinating discharge services: 38min Date of admission: 01/20/19 16:39 Primary care physician: Tianna Brown CNP Consults: 01/20/19 16:46 Consult to Orthopedic Surgery [CONS] Routine Consulting Provider: [facility] Reason for Consult: Right medial meniscal tear. Right hip pain s/p hip fx repair. DKA Time Notified: 16:47 Call Completed: Yes 01/20/19 18:07 Consult to Dermatological Surgeon [CONS] Routine Reason for SW Consult: d/c planning 01/22/19 10:52 Consult to Physical Therapy [CONS] Routine Comment: Evaluate, develop and implement POC Reason for Consult: Recent hip surg, needs to be mobilized Does patient have active BEDREST order?: No Is patient medically & hemodynamically stable?: Yes - Constitutional Vitals: Temp Pulse Resp BP Pulse Ox 97.4 F L 73 20 127/69 94 01/23/19 11:41 01/23/19 11:41 01/23/19 11:41 01/23/19 11:41 01/23/19 11:41 - Attending Attestation I examined this patient and my medical decision-making was reviewed with the Resident Physician on 01/23/19. I agree with the documented findings, disposition and treatment plan as described except to the extent set forth below. Ms Greenwood has been admitted with acute DKA. She was placed on DKA protocol and improved overnight. She was noted to have leukocytosis which improved but her procalcitonin was elevated. She was started on abx with overall improvement. Her pump was found but missing a part. She will be discharged home on subqu insulin. Exam Alert Comfortable now Mucus membranes dry Heart not tachy No wheeze Plan D/C home today. Subqu insulin until able to restart pump.
--- NOTE | 2019-01-23 15:06 | Physician Discharge Referral ---
Home Health/Hosp Referral Info Transfer to: Home Health Attending Provider: satya Provider in Charge Post Discharge: PCP - Diagnosis (1) DKA (diabetic ketoacidoses) Priority: Primary Status: Acute (2) Metabolic encephalopathy Priority: Secondary Status: Resolved (3) Pneumonia Priority: Secondary Status: Suspected (4) Leukocytosis Priority: Secondary Status: Resolved (5) Asthma Priority: Secondary Status: Chronic (6) GERD (gastroesophageal reflux disease) Priority: Secondary Status: Chronic (7) Hip pain, right Priority: Secondary Status: Acute (8) Back pain Priority: Secondary Status: Acute (9) Acute meniscal tear of right knee Priority: Secondary Status: Acute - Respiratory Orders Smoking Cessation: Smoking cessation has been advised. For more information, call the [employer] Tobacco Quit Line at 5-078-RDDM-NOW. - Diet/Nutrition Diet/Nutrition Orders: No Concentrated Sweets - Activity Activity Orders: Ambulate - Services Needed Following services are medically necessary services: Nursing, Physical Therapy, Occupational Therapy - Transfer Medications Prescriptions: Doxycycline 100 mg PO BID #14 capsule Insulin DETEMIR [Levemir Flextouch] 100 unit SQ BID 30 Days #6 insuln.pen Insulin ASPART [Novolog Flexpen] 100 unit SQ QID 30 Days #6 insuln.pen Ondansetron ODT [Zofran ODT] 4 mg SL Q6HR #30 tab.rapdis Home Medications: Alendronate Sodium [Fosamax] 70 mg PO WE 11/26/18 [History] Cyanocobalamin/Folic AC/Vit B6 [Folbee Tablet] 1 each PO DAILY 11/26/18 [History] Lisinopril [Zestril] 5 mg PO HS 11/26/18 [History] Montelukast [Singulair] 10 mg PO DAILY@1800 11/26/18 [History] Pantoprazole Sodium [Protonix] 20 mg PO DAILY 11/26/18 [History] Simvastatin [Zocor] 40 mg PO HS 11/26/18 [History] Multivitamin [One-Daily Multi-Vitamin] 1 tab PO DAILY 12/16/18 [History] Subcutaneous Insulin Pump [T:Slim] 1 each MC AD 12/16/18 [History] Doxycycline 100 mg PO BID #14 capsule 01/23/19 [Rx] Insulin ASPART [Novolog Flexpen] 100 unit SQ QID 30 Days #6 insuln.pen 01/23/19 [Rx] Insulin DETEMIR [Levemir Flextouch] 100 unit SQ BID 30 Days #6 insuln.pen 01/23/19 [Rx] Ondansetron ODT [Zofran ODT] 4 mg SL Q6HR #30 tab.rapdis 01/23/19 [Rx] Allergies/Adverse Reactions: Allergy/AdvReac Type Severity Reaction Status Date / Time cephalexin Allergy Difficulty Verified 12/16/18 17:21 Breathing egg Allergy Vomiting Verified 09/04/18 17:35 Penicillins Allergy Rash Verified 12/16/18 17:21 codeine AdvReac Nausea Verified 12/16/18 17:21 insulin lispro AdvReac Rash Verified 12/16/18 17:21 [From Humalog Mix] insulin lispro protamine AdvReac Rash Verified 12/16/18 17:21 [From Humalog Mix] Certification: Further, I certify that my clinical findings support that this patient is homebound (i.e. absences from home require considerable and taxing effort and are for medical reasons or rastafarian services or infrequently or short duration when for other reasons) because: Homebound Reason: Patient requires assistance of a person or device to safely leave home, Leaving home requires considerable and taxing effort due to condition Attestation: My signature below is to certify that this patient is under my care and that I, or nurse practitioner, or a physician's civil engineering assistant working with me, has a [id number] encounter with this patient.
== END 2019-01-23 16:48 | disposition home or self-care (01) | DRG 637 ==
LOC: EMEROOARM 11:01 → SUATTDRO 16:39 → 2NNU 16:39 → 2ANU 01-22 10:10
PROVIDERS: ADMIT Internal Medicine; ATTEND Internal Medicine

== ENCOUNTER 2020-07-15 15:51 | Inpatient (IN) ==
[2020-07-15] MEDS ORDERED: 0.9 % Sodium Chloride 1,000 ML IVC ONE (16:02)
[2020-07-15] MEDS ORDERED: Ondansetron 4 MG/2 ML VIAL IVP ONE (16:02)
[2020-07-15 17:16] LABS: Basophils % 0.3 %; Hematocrit 46.8 % (35.3-44.9); Hemoglobin 15.2 g/dL (11.5-15.4); Immature Granulocytes % 0.2 % (0-4); Lymphocytes % 14.6 %; Mean Corpuscular HGB Conc 32.5 g/dL (31.6-35.5); Mean Corpuscular Hemoglobin 28.7 pg (28.0-33.3); Mean Corpuscular Volume 88.3 fL (83.0-100.0); Mean Platelet Volume 10.5 fL (9.4-12.4); Monocytes # 0.4 K/mcL (0.0-1.3); Monocytes % 6.3 %; Neutrophils # 5.2 K/mcL (1.6-8.9); Platelet Count 193 K/mcL (140-400); Red Cell Distribution Width 12.1 % (11.5-14.5); Segmented Neutrophils % 78.6 %; White Blood Count 6.6 K/mcL (4.3-11.1)
[2020-07-15 17:22] LABS: INR 1.1; Prothrombin Time 12.4 Seconds (9.4-12.1)
[2020-07-15 17:31] LABS: Bacteria,Urine Few per hpf (None-Few); Bilirubin,Urine Small (Negative); Blood,Urine Small (Negative); Clarity,Urine Clear (Clear); Color,Urine Yellow (Yellow); Glucose,Urine (UA) 70 mg/dL (Normal); Hyaline Casts,Urine Many per lpf (None Seen); Ketones,Urine 60 mg/dL (Negative); Leukocyte Esterase,Urine Negative (Negative); Mucus,Urine Few per lpf (None-Few); Nitrite,Urine Negative (Negative); PH,Urine 5.5 pH Units (5.0-8.0); Protein,Urine 200 mg/dL (Neg-Trace); RBC,Urine 0-3 per hpf (0-3); Specific Gravity,Urine 1.027 (1.010-1.025); Squamous Epithelial Cell,Urine Few per hpf (None-Few); WBC,Urine 0-3 per hpf (0-3)
[2020-07-15 17:36] LABS: Alanine Aminotransferase 27 Units/L (7-52); Albumin 3.9 g/dL (3.5-5.7); Albumin/Globulin Ratio 1.4 (1.1-2.2); Alkaline Phosphatase 109 Units/L (34-104); Aspartate Amino Transferase 29 Units/L (13-39); BUN/Creatinine Ratio 24 (6-26); Bilirubin,Direct 0.2 mg/dL (0.0-0.2); Bilirubin,Indirect 0.5 mg/dL (0.0-1.0); Bilirubin,Total 0.7 mg/dL (0.3-1.0); Blood Urea Nitrogen 21 mg/dL (8-23); Calcium 8.4 mg/dL (8.6-10.3); Carbon Dioxide 24 mEq/L (23-29); Chloride 95 mEq/L (98-107); Globulin 2.7 g/dL (2.4-3.5); Glucose 204 mg/dL (70-105); Osmolality,Calculated 283 (280-300); Potassium 3.9 mEq/L (3.5-5.1); Sodium 132 mEq/L (136-145); Total Protein 6.6 g/dL (6.4-8.9); Troponin I < 0.03 ng/mL (< 0.04); eGFR For African Americans > 60 (> 60); eGFR For Non-African Americans > 60 (> 60)
[2020-07-15] MEDS ORDERED: Azithromycin 500 MG in 0.9 % Sodium Chloride 250 ML IVPB ONE (17:44)
[2020-07-15] MEDS ORDERED: Dexamethasone 4 MG/ML VIAL IVP ONE (17:44)
[2020-07-15 18:22] LABS: C-Reactive Protein 93 mg/L (Less than 10); Lactate Dehydrogenase 269 Units/L (140-271)
[2020-07-15 18:41] LABS: Ferritin 214 ng/mL (10-120)
[2020-07-15] MEDS ORDERED: Naloxone 0.4 MG/ML INJ IVP PRN (18:42)
[2020-07-15] MEDS ORDERED: Ondansetron 4 MG/2 ML VIAL IVP PRN (18:42)
[2020-07-15] MEDS: Ipratropium 1 PUFF INHALER IH SCH ×2 (20:29→22:05)
[2020-07-15] MEDS: OWN INSULIN PUMP PO SCH (21:00)
[2020-07-16] MEDS: Ipratropium 1 PUFF INHALER IH SCH ×4 (03:50→20:25)
[2020-07-16] MEDS: *HR* Enoxaparin 40 MG/0.4 ML SYRINGE SQ SCH (05:07)
[2020-07-16] MEDS ORDERED: D5% in Water 1,000 ML IVC PRN (07:58)
[2020-07-16] MEDS ORDERED: *HR* Dextrose 50 % in Water (Vial) 50 ML VIAL IVP PRN (07:58)
[2020-07-16] MEDS ORDERED: Dextrose Gel 15 GM/37.5 ML TUBE PO PRN ×2 (07:58)
[2020-07-16 08:26] LABS: ABG Base Excess -2 mEq/L (-2 to 3); ABG HCO3 23 mEq/L (21-27); ABG Oxygen Saturation 89 % (95-98); ABG PCO2 41 mmHg (35-45); ABG PH 7.36 pH Units (7.32-7.45); ABG PO2 58 mmHg (85-104); ABG TCO2 25 mEq/L (20-26)
[2020-07-16] MEDS ORDERED: Dexamethasone 4 MG/ML VIAL IVP SCH (09:00)
[2020-07-16] MEDS: Dexamethasone Sodium Phos/PF 10 MG/ML VIAL IVP SCH (10:24)
[2020-07-16] MEDS: Furosemide 40 MG/4 ML VIAL IVP SCH (10:25)
[2020-07-16 10:30] LABS: Basophils % 0.3 %; Hematocrit 43.9 % (35.3-44.9); Hemoglobin 14.2 g/dL (11.5-15.4); Immature Granulocytes % 0.3 % (0-4); Lymphocytes # 0.4 K/mcL (0.6-4.6); Lymphocytes % 11.2 %; Mean Corpuscular HGB Conc 32.3 g/dL (31.6-35.5); Mean Corpuscular Hemoglobin 28.4 pg (28.0-33.3); Mean Corpuscular Volume 87.8 fL (83.0-100.0); Mean Platelet Volume 10.4 fL (9.4-12.4); Monocytes # 0.2 K/mcL (0.0-1.3); Monocytes % 4.4 %; Neutrophils # 3.1 K/mcL (1.6-8.9); Platelet Count 182 K/mcL (140-400); Red Cell Distribution Width 11.9 % (11.5-14.5); Segmented Neutrophils % 83.8 %; White Blood Count 3.7 K/mcL (4.3-11.1)
[2020-07-16 11:09] LABS: Alanine Aminotransferase 28 Units/L (7-52); Albumin 3.4 g/dL (3.5-5.7); Albumin/Globulin Ratio 1.4 (1.1-2.2); Alkaline Phosphatase 102 Units/L (34-104); Aspartate Amino Transferase 26 Units/L (13-39); BUN/Creatinine Ratio 32 (6-26); Bilirubin,Total 0.4 mg/dL (0.3-1.0); Blood Urea Nitrogen 23 mg/dL (8-23); C-Reactive Protein 74 mg/L (Less than 10); Calcium 8.1 mg/dL (8.6-10.3); Carbon Dioxide 22 mEq/L (23-29); Chloride 102 mEq/L (98-107); Globulin 2.5 g/dL (2.4-3.5); Glucose 322 mg/dL (70-105); Lactate Dehydrogenase 246 Units/L (140-271); Osmolality,Calculated 298 (280-300); Potassium 4.3 mEq/L (3.5-5.1); Sodium 136 mEq/L (136-145); Total Protein 5.9 g/dL (6.4-8.9); eGFR For African Americans > 60 (> 60); eGFR For Non-African Americans > 60 (> 60)
[2020-07-16 11:26] LABS: Ferritin 234 ng/mL (10-120)
[2020-07-16] MEDS: Acetaminophen 325 MG TABLET PO PRN (12:09)
[2020-07-16 12:43] LABS: Adenovirus Not Detected (Not Detect); Coronavirus 229E Not Detected (Not Detect); Coronavirus HKU1 Not Detected (Not Detect); Coronavirus NL63 Not Detected (Not Detect); Coronavirus OC43 Not Detected (Not Detect)
[2020-07-16 12:48] LABS: Bordetella Pertussis Not Detected (Not Detect); Chlamydophila pneumoniae Not Detected (Not Detect); Human Metapneumovirus Not Detected (Not Detect); Human Rhinovirus/Enterovirus Not Detected (Not Detect); Influenza A Subtype 2009 H1 Not Detected (Not Detect); Influenza B Not Detected (Not Detect); Mycoplasma pneumoniae Not Detected (Not Detect); Parainfluenza Virus 1 Not Detected (Not Detect); Parainfluenza Virus 2 Not Detected (Not Detect); Parainfluenza Virus 3 Not Detected (Not Detect); Parainfluenza Virus 4 Not Detected (Not Detect); Respiratory Syncytial Virus Not Detected (Not Detect); SARS-CoV-2 DETECTED (Not Detect)
[2020-07-16] MEDS ORDERED: REMDESIVIR IVPB ONE (17:00)
[2020-07-16] MEDS ORDERED: SODIUM CHLORIDE 0.9% IVPB ONE (17:00)
[2020-07-16] MEDS: OWN INSULIN PUMP PO SCH (18:27)
[2020-07-16] MEDS: Insulin DETEMIR 100 UNIT/ML X5UNITS SQ SCH (19:47)
[2020-07-16] MEDS ORDERED: ALPRAZolam 0.25 MG TABLET PO PRN (20:14)
[2020-07-16] MEDS ORDERED: NON-FORMULARY MEDICATION 1 EACH EACH (Subcutaneous Insulin Pump [T:Slim] 1 EACH) MC SCH (20:15)
[2020-07-16] MEDS ORDERED: Insulin DETEMIR 100 UNIT/ML X5UNITS SQ SCH (21:00)
[2020-07-16] MEDS ORDERED: 0.9 % Sodium Chloride 250 ML ONE (22:01)
[2020-07-16] MEDS: lisinopriL 5 MG TABLET PO SCH (23:56)
[2020-07-17] MEDS: Ipratropium 1 PUFF INHALER IH SCH ×5 (00:05→21:55)
[2020-07-17 03:29] LABS: Basophils % 0.1 %; Hematocrit 41.1 % (35.3-44.9); Hemoglobin 13.7 g/dL (11.5-15.4); Immature Granulocytes % 0.2 % (0-4); Lymphocytes # 0.4 K/mcL (0.6-4.6); Mean Corpuscular HGB Conc 33.3 g/dL (31.6-35.5); Mean Corpuscular Volume 86.9 fL (83.0-100.0); Mean Platelet Volume 10.5 fL (9.4-12.4); Monocytes # 0.4 K/mcL (0.0-1.3); Monocytes % 4.9 %; Neutrophils # 7.3 K/mcL (1.6-8.9); Platelet Count 178 K/mcL (140-400); Red Blood Count 4.73 M/mcL (3.82-4.97); Red Cell Distribution Width 11.9 % (11.5-14.5); Segmented Neutrophils % 89.8 %; White Blood Count 8.1 K/mcL (4.3-11.1)
[2020-07-17 03:59] LABS: INR 0.9; Prothrombin Time 10.9 Seconds (9.4-12.1)
[2020-07-17 04:06] LABS: Magnesium 2.4 mg/dL (1.6-2.6)
[2020-07-17 04:11] LABS: Alanine Aminotransferase 26 Units/L (7-52); Albumin 3.5 g/dL (3.5-5.7); Albumin/Globulin Ratio 1.5 (1.1-2.2); Alkaline Phosphatase 106 Units/L (34-104); Aspartate Amino Transferase 21 Units/L (13-39); BUN/Creatinine Ratio 38 (6-26); Bilirubin,Total 0.3 mg/dL (0.3-1.0); Blood Urea Nitrogen 29 mg/dL (8-23); Calcium 8.6 mg/dL (8.6-10.3); Carbon Dioxide 24 mEq/L (23-29); Chloride 102 mEq/L (98-107); Globulin 2.4 g/dL (2.4-3.5); Glucose 275 mg/dL (70-105); Osmolality,Calculated 300 (280-300); Potassium 4.1 mEq/L (3.5-5.1); Sodium 137 mEq/L (136-145); Total Protein 5.9 g/dL (6.4-8.9); eGFR For African Americans > 60 (> 60); eGFR For Non-African Americans > 60 (> 60)
[2020-07-17] MEDS: *HR* Enoxaparin 40 MG/0.4 ML SYRINGE SQ SCH (05:29)
[2020-07-17] MEDS: Dexamethasone Sodium Phos/PF 10 MG/ML VIAL IVP SCH (07:54)
[2020-07-17] MEDS: Multivit/Ca/Min/Fe/FA 1 TAB TABLET PO SCH (07:54)
[2020-07-17] MEDS: Fluticasone Propionate Nasal 50 MCG/SPRAY BOTTLE NS SCH (07:55)
[2020-07-17] MEDS: Insulin DETEMIR 100 UNIT/ML X5UNITS SQ SCH ×2 (07:55→20:56)
[2020-07-17] MEDS: Furosemide 40 MG/4 ML VIAL IVP SCH ×2 (07:55→17:35)
[2020-07-17 08:29] LABS: Estimated Average Glucose 292 mg/dl
[2020-07-17] MEDS: Levalbuterol 1 PUFF INHALER IH SCH ×2 (15:15→21:55)
[2020-07-17] MEDS ORDERED: REMDESIVIR IVPB SCH (16:12)
[2020-07-17] MEDS ORDERED: SODIUM CHLORIDE 0.9% IVPB SCH (16:12)
[2020-07-17] MEDS: OWN INSULIN PUMP PO SCH (17:18)
[2020-07-17] MEDS: SODIUM CHLORIDE 0.9% IVPB SCH (17:36)
[2020-07-17] MEDS: REMDESIVIR IVPB SCH (17:36)
[2020-07-17] MEDS: lisinopriL 5 MG TABLET PO SCH (20:56)
[2020-07-17] MEDS ORDERED: Levalbuterol 1 PUFF INHALER IH SCH (22:00)
[2020-07-18] MEDS: Levalbuterol 1 PUFF INHALER IH SCH ×4 (03:21→21:22)
[2020-07-18] MEDS: Ipratropium 1 PUFF INHALER IH SCH ×4 (03:21→21:21)
[2020-07-18 05:43] LABS: Basophils % 0.3 %; Hematocrit 43.6 % (35.3-44.9); Hemoglobin 14.4 g/dL (11.5-15.4); Immature Granulocytes % 0.7 % (0-4); Lymphocytes # 0.5 K/mcL (0.6-4.6); Lymphocytes % 5.8 %; Mean Corpuscular Hemoglobin 28.7 pg (28.0-33.3); Mean Corpuscular Volume 86.9 fL (83.0-100.0); Mean Platelet Volume 10.5 fL (9.4-12.4); Monocytes # 0.5 K/mcL (0.0-1.3); Monocytes % 5.9 %; Neutrophils # 7.5 K/mcL (1.6-8.9); Platelet Count 250 K/mcL (140-400); Red Blood Count 5.02 M/mcL (3.82-4.97); Red Cell Distribution Width 12.1 % (11.5-14.5); Segmented Neutrophils % 87.3 %
[2020-07-18 05:44] LABS: White Blood Count 8.6 K/mcL (4.3-11.1)
[2020-07-18 05:46] LABS: Prothrombin Time 11.8 Seconds (9.4-12.1)
[2020-07-18 06:03] LABS: Alanine Aminotransferase 19 Units/L (7-52); Albumin 3.6 g/dL (3.5-5.7); Albumin/Globulin Ratio 1.5 (1.1-2.2); Alkaline Phosphatase 98 Units/L (34-104); Aspartate Amino Transferase 20 Units/L (13-39); BUN/Creatinine Ratio 39 (6-26); Bilirubin,Total 0.4 mg/dL (0.3-1.0); Blood Urea Nitrogen 28 mg/dL (8-23); Calcium 8.5 mg/dL (8.6-10.3); Carbon Dioxide 26 mEq/L (23-29); Chloride 101 mEq/L (98-107); Globulin 2.4 g/dL (2.4-3.5); Glucose 152 mg/dL (70-105); Osmolality,Calculated 290 (280-300); Potassium 3.9 mEq/L (3.5-5.1); Sodium 136 mEq/L (136-145); eGFR For African Americans > 60 (> 60); eGFR For Non-African Americans > 60 (> 60)
[2020-07-18 06:08] LABS: Magnesium 2.3 mg/dL (1.6-2.6); Phosphorous 3.5 mg/dL (2.7-4.5)
[2020-07-18] MEDS: *HR* Enoxaparin 40 MG/0.4 ML SYRINGE SQ SCH (06:12)
[2020-07-18] MEDS: Multivit/Ca/Min/Fe/FA 1 TAB TABLET PO SCH (09:48)
[2020-07-18] MEDS: Furosemide 40 MG/4 ML VIAL IVP SCH ×2 (09:48→17:12)
[2020-07-18] MEDS: Insulin DETEMIR 100 UNIT/ML X5UNITS SQ SCH ×2 (09:49→22:12)
[2020-07-18] MEDS: Dexamethasone Sodium Phos/PF 10 MG/ML VIAL IVP SCH (09:49)
[2020-07-18] MEDS: Fluticasone Propionate Nasal 50 MCG/SPRAY BOTTLE NS SCH (10:36)
[2020-07-18] MEDS: SODIUM CHLORIDE 0.9% IVPB SCH (17:13)
[2020-07-18] MEDS: REMDESIVIR IVPB SCH (17:13)
[2020-07-18] MEDS: OWN INSULIN PUMP PO SCH (17:16)
[2020-07-18] MEDS: lisinopriL 5 MG TABLET PO SCH (22:12)
[2020-07-19] MEDS: Ipratropium 1 PUFF INHALER IH SCH ×4 (03:27→22:11)
[2020-07-19] MEDS: Levalbuterol 1 PUFF INHALER IH SCH ×4 (03:28→22:11)
[2020-07-19] MEDS: *HR* Enoxaparin 40 MG/0.4 ML SYRINGE SQ SCH (06:09)
[2020-07-19 07:21] LABS: Prothrombin Time 11.9 Seconds (9.4-12.1)
[2020-07-19 07:49] LABS: Basophils % 0.4 %; Hematocrit 43.6 % (35.3-44.9); Hemoglobin 14.3 g/dL (11.5-15.4); Immature Granulocytes % 0.7 % (0-4); Lymphocytes # 0.5 K/mcL (0.6-4.6); Mean Corpuscular HGB Conc 32.8 g/dL (31.6-35.5); Mean Corpuscular Volume 85.3 fL (83.0-100.0); Mean Platelet Volume 10.5 fL (9.4-12.4); Monocytes # 0.4 K/mcL (0.0-1.3); Monocytes % 6.2 %; Neutrophils # 6.1 K/mcL (1.6-8.9); Platelet Count 298 K/mcL (140-400); Red Blood Count 5.11 M/mcL (3.82-4.97); Red Cell Distribution Width 12.1 % (11.5-14.5); Segmented Neutrophils % 85.7 %; White Blood Count 7.1 K/mcL (4.3-11.1)
[2020-07-19 08:31] LABS: Platelet Estimate Slight Decrease (Normal); Toxic Granulation Present (Not Present)
[2020-07-19] MEDS: Furosemide 40 MG/4 ML VIAL IVP SCH ×2 (08:32→17:27)
[2020-07-19] MEDS: Multivit/Ca/Min/Fe/FA 1 TAB TABLET PO SCH (08:32)
[2020-07-19] MEDS: Folic Acid 1 MG TABLET PO SCH (08:32)
[2020-07-19] MEDS: Dexamethasone Sodium Phos/PF 10 MG/ML VIAL IVP SCH (08:33)
[2020-07-19] MEDS: Fluticasone Propionate Nasal 50 MCG/SPRAY BOTTLE NS SCH (08:33)
[2020-07-19] MEDS: Cyanocobalamin (B-12) 1,000 MCG TABLET PO SCH (08:33)
[2020-07-19] MEDS: Pyridoxine (B-6) 50 MG TABLET PO SCH (08:38)
[2020-07-19 08:52] LABS: Magnesium 2.4 mg/dL (1.6-2.6); Phosphorous 3.6 mg/dL (2.7-4.5)
[2020-07-19] MEDS ORDERED: Insulin DETEMIR 100 UNIT/ML X5UNITS SQ SCH (09:00)
[2020-07-19 09:01] LABS: Alanine Aminotransferase 19 Units/L (7-52); Albumin 3.4 g/dL (3.5-5.7); Albumin/Globulin Ratio 1.3 (1.1-2.2); Alkaline Phosphatase 91 Units/L (34-104); Aspartate Amino Transferase 17 Units/L (13-39); BUN/Creatinine Ratio 48 (6-26); Bilirubin,Total 0.5 mg/dL (0.3-1.0); Blood Urea Nitrogen 34 mg/dL (8-23); Calcium 8.5 mg/dL (8.6-10.3); Carbon Dioxide 28 mEq/L (23-29); Chloride 99 mEq/L (98-107); Globulin 2.6 g/dL (2.4-3.5); Glucose 187 mg/dL (70-105); Osmolality,Calculated 297 (280-300); Potassium 3.8 mEq/L (3.5-5.1); Sodium 137 mEq/L (136-145); eGFR For African Americans > 60 (> 60); eGFR For Non-African Americans > 60 (> 60)
[2020-07-19] MEDS ORDERED: Insulin DETEMIR 100 UNIT/ML X5UNITS SQ ONE (16:28)
[2020-07-19] MEDS ORDERED: Insulin Regular, Human 100 UNIT/ML SQ SCH (16:30)
[2020-07-19] MEDS ORDERED: Insulin Human Regular 5 UNIT in 0.9 % Sodium Chloride 10 ML IV ONE (16:31)
[2020-07-19] MEDS: SODIUM CHLORIDE 0.9% IVPB SCH (17:25)
[2020-07-19] MEDS: REMDESIVIR IVPB SCH (17:25)
[2020-07-19] MEDS ORDERED: *HR* Dextrose 50 % in Water (Vial) 50 ML VIAL IVP PRN (20:09)
[2020-07-19] MEDS ORDERED: Dextrose Gel 15 GM/37.5 ML TUBE PO PRN ×2 (20:09)
[2020-07-19] MEDS ORDERED: Insulin Human Regular 10 UNIT in 0.9 % Sodium Chloride 10 ML IV ONE (20:14)
[2020-07-19] MEDS: Insulin DETEMIR 100 UNIT/ML X5UNITS SQ SCH (21:12)
[2020-07-19] MEDS: lisinopriL 5 MG TABLET PO SCH (21:13)
[2020-07-19] MEDS: Insulin Regular, Human 100 UNIT/ML SQ SCH (21:17)
[2020-07-20] MEDS: Ipratropium 1 PUFF INHALER IH SCH ×4 (03:40→22:40)
[2020-07-20] MEDS: Levalbuterol 1 PUFF INHALER IH SCH ×4 (03:40→22:41)
[2020-07-20 04:40] LABS: Hematocrit 45.6 % (35.3-44.9); Mean Corpuscular HGB Conc 32.9 g/dL (31.6-35.5); Mean Corpuscular Volume 85.2 fL (83.0-100.0); Mean Platelet Volume 10.1 fL (9.4-12.4); Platelet Count 330 K/mcL (140-400); Red Blood Count 5.35 M/mcL (3.82-4.97); White Blood Count 9.2 K/mcL (4.3-11.1)
[2020-07-20 04:59] LABS: Alanine Aminotransferase 20 Units/L (7-52); Albumin 3.6 g/dL (3.5-5.7); Albumin/Globulin Ratio 1.4 (1.1-2.2); Alkaline Phosphatase 92 Units/L (34-104); Aspartate Amino Transferase 16 Units/L (13-39); BUN/Creatinine Ratio 51 (6-26); Bilirubin,Total 0.5 mg/dL (0.3-1.0); Blood Urea Nitrogen 37 mg/dL (8-23); Carbon Dioxide 30 mEq/L (23-29); Chloride 99 mEq/L (98-107); Globulin 2.5 g/dL (2.4-3.5); Glucose 88 mg/dL (70-105); Osmolality,Calculated 296 (280-300); Potassium 3.6 mEq/L (3.5-5.1); Sodium 139 mEq/L (136-145); Total Protein 6.1 g/dL (6.4-8.9); eGFR For African Americans > 60 (> 60); eGFR For Non-African Americans > 60 (> 60)
[2020-07-20] MEDS: *HR* Enoxaparin 40 MG/0.4 ML SYRINGE SQ SCH (06:01)
[2020-07-20] MEDS: Insulin Regular, Human 100 UNIT/ML SQ SCH ×4 (08:45→21:46)
[2020-07-20] MEDS: Furosemide 40 MG/4 ML VIAL IVP SCH ×2 (08:46→16:44)
[2020-07-20] MEDS: Multivit/Ca/Min/Fe/FA 1 TAB TABLET PO SCH (08:47)
[2020-07-20] MEDS: Dexamethasone Sodium Phos/PF 10 MG/ML VIAL IVP SCH (08:47)
[2020-07-20] MEDS: Folic Acid 1 MG TABLET PO SCH (08:47)
[2020-07-20] MEDS: Pyridoxine (B-6) 50 MG TABLET PO SCH (08:47)
[2020-07-20] MEDS: Cyanocobalamin (B-12) 1,000 MCG TABLET PO SCH (08:47)
[2020-07-20] MEDS: Insulin DETEMIR 100 UNIT/ML X5UNITS SQ SCH ×2 (08:48→21:45)
[2020-07-20] MEDS: Fluticasone Propionate Nasal 50 MCG/SPRAY BOTTLE NS SCH (09:13)
[2020-07-20] MEDS ORDERED: 0.9 % Sodium Chloride 250 ML ONE (11:57)
[2020-07-20] MEDS ORDERED: Remdesivir 100 MG in 0.9 % Sodium Chloride 230 ML IVPB SCH (17:00)
[2020-07-20] MEDS: lisinopriL 5 MG TABLET PO SCH (21:45)
[2020-07-21] MEDS: Ipratropium 1 PUFF INHALER IH SCH ×4 (04:06→22:08)
[2020-07-21] MEDS: Levalbuterol 1 PUFF INHALER IH SCH ×4 (04:06→22:08)
[2020-07-21] MEDS: *HR* Enoxaparin 40 MG/0.4 ML SYRINGE SQ SCH (05:28)
[2020-07-21] MEDS: Folic Acid 1 MG TABLET PO SCH (08:02)
[2020-07-21] MEDS: Fluticasone Propionate Nasal 50 MCG/SPRAY BOTTLE NS SCH (08:03)
[2020-07-21] MEDS: Furosemide 40 MG/4 ML VIAL IVP SCH (08:03)
[2020-07-21] MEDS: Multivit/Ca/Min/Fe/FA 1 TAB TABLET PO SCH (08:03)
[2020-07-21] MEDS: Pyridoxine (B-6) 50 MG TABLET PO SCH (08:03)
[2020-07-21] MEDS: Cyanocobalamin (B-12) 1,000 MCG TABLET PO SCH (08:03)
[2020-07-21] MEDS: Insulin Regular, Human 100 UNIT/ML SQ SCH ×2 (08:25→11:49)
[2020-07-21] MEDS ORDERED: Dexamethasone 4 MG/ML VIAL IVP SCH (09:00)
[2020-07-21] MEDS ORDERED: Insulin DETEMIR 100 UNIT/ML X5UNITS SQ SCH ×2 (09:00→21:00)
[2020-07-21] MEDS ORDERED: Dexamethasone Sodium Phos/PF 10 MG/ML VIAL IVP SCH (09:00)
[2020-07-21 16:04] LABS: Hematocrit 44.9 % (35.3-44.9); Hemoglobin 15.3 g/dL (11.5-15.4); Mean Corpuscular HGB Conc 34.1 g/dL (31.6-35.5); Mean Corpuscular Hemoglobin 29.4 pg (28.0-33.3); Mean Corpuscular Volume 86.3 fL (83.0-100.0); Mean Platelet Volume 10.1 fL (9.4-12.4); Platelet Count 317 K/mcL (140-400); Red Cell Distribution Width 11.9 % (11.5-14.5); White Blood Count 11.7 K/mcL (4.3-11.1)
[2020-07-21 16:24] LABS: BUN/Creatinine Ratio 44 (6-26); Blood Urea Nitrogen 32 mg/dL (8-23); Calcium 8.8 mg/dL (8.6-10.3); Carbon Dioxide 37 mEq/L (23-29); Chloride 95 mEq/L (98-107); Glucose 143 mg/dL (70-105); Osmolality,Calculated 293 (280-300); Potassium 3.7 mEq/L (3.5-5.1); Sodium 137 mEq/L (136-145); eGFR For African Americans > 60 (> 60); eGFR For Non-African Americans > 60 (> 60)
[2020-07-21] MEDS ORDERED: Furosemide 40 MG/4 ML VIAL IVP SCH (17:30)
[2020-07-21] MEDS: OWN INSULIN PUMP PO SCH (17:33)
[2020-07-21] MEDS: lisinopriL 5 MG TABLET PO SCH (19:38)
[2020-07-21] MEDS ORDERED: 0.9 % Sodium Chloride 250 ML ONE (22:12)
[2020-07-22] MEDS: Ipratropium 1 PUFF INHALER IH SCH ×4 (03:53→20:11)
[2020-07-22] MEDS: Levalbuterol 1 PUFF INHALER IH SCH ×4 (03:54→20:12)
[2020-07-22] MEDS: *HR* Enoxaparin 40 MG/0.4 ML SYRINGE SQ SCH (05:22)
[2020-07-22 05:50] LABS: Hematocrit 39.9 % (35.3-44.9); Mean Corpuscular HGB Conc 35.1 g/dL (31.6-35.5); Mean Corpuscular Hemoglobin 30.3 pg (28.0-33.3); Mean Corpuscular Volume 86.4 fL (83.0-100.0); Mean Platelet Volume 10.2 fL (9.4-12.4); Platelet Count 282 K/mcL (140-400); Red Blood Count 4.62 M/mcL (3.82-4.97); Red Cell Distribution Width 11.9 % (11.5-14.5); White Blood Count 10.1 K/mcL (4.3-11.1)
[2020-07-22 06:07] LABS: BUN/Creatinine Ratio 43 (6-26); Blood Urea Nitrogen 30 mg/dL (8-23); Calcium 8.5 mg/dL (8.6-10.3); Carbon Dioxide 36 mEq/L (23-29); Chloride 94 mEq/L (98-107); Glucose 71 mg/dL (70-105); Osmolality,Calculated 289 (280-300); Potassium 2.9 mEq/L (3.5-5.1); Sodium 137 mEq/L (136-145); eGFR For African Americans > 60 (> 60); eGFR For Non-African Americans > 60 (> 60)
[2020-07-22] MEDS: Pyridoxine (B-6) 50 MG TABLET PO SCH (08:14)
[2020-07-22] MEDS: Cyanocobalamin (B-12) 1,000 MCG TABLET PO SCH (08:14)
[2020-07-22] MEDS: Multivit/Ca/Min/Fe/FA 1 TAB TABLET PO SCH (08:14)
[2020-07-22] MEDS: Folic Acid 1 MG TABLET PO SCH (08:15)
[2020-07-22] MEDS: Fluticasone Propionate Nasal 50 MCG/SPRAY BOTTLE NS SCH (08:16)
[2020-07-22] MEDS ORDERED: Insulin DETEMIR 100 UNIT/ML X5UNITS SQ SCH (09:00)
[2020-07-22] MEDS ORDERED: Dexamethasone 4 MG/ML VIAL IVP SCH (09:00)
[2020-07-22] MEDS ORDERED: Isovue-370 500 ML BOTTLE IVP ONE (10:34)
[2020-07-22] MEDS ORDERED: Dexamethasone 4 MG/ML VIAL IVP ONE (15:59)
[2020-07-22] MEDS: OWN INSULIN PUMP PO SCH (16:27)
[2020-07-22] MEDS: lisinopriL 5 MG TABLET PO SCH (20:46)
[2020-07-23] MEDS: Ipratropium 1 PUFF INHALER IH SCH ×4 (03:42→21:05)
[2020-07-23] MEDS: Levalbuterol 1 PUFF INHALER IH SCH ×4 (03:42→21:05)
[2020-07-23] MEDS: *HR* Enoxaparin 40 MG/0.4 ML SYRINGE SQ SCH (05:02)
[2020-07-23 06:40] LABS: Hematocrit 40.8 % (35.3-44.9); Hemoglobin 13.5 g/dL (11.5-15.4); Mean Corpuscular HGB Conc 33.1 g/dL (31.6-35.5); Mean Corpuscular Hemoglobin 28.6 pg (28.0-33.3); Mean Corpuscular Volume 86.4 fL (83.0-100.0); Mean Platelet Volume 10.3 fL (9.4-12.4); Platelet Count 273 K/mcL (140-400); Red Blood Count 4.72 M/mcL (3.82-4.97); Red Cell Distribution Width 11.8 % (11.5-14.5); White Blood Count 9.2 K/mcL (4.3-11.1)
[2020-07-23 07:04] LABS: BUN/Creatinine Ratio 41 (6-26); Blood Urea Nitrogen 23 mg/dL (8-23); Calcium 8.7 mg/dL (8.6-10.3); Carbon Dioxide 28 mEq/L (23-29); Chloride 98 mEq/L (98-107); Glucose 187 mg/dL (70-105); Osmolality,Calculated 281 (280-300); Potassium 5.7 mEq/L (3.5-5.1); Sodium 131 mEq/L (136-145); eGFR For African Americans > 60 (> 60); eGFR For Non-African Americans > 60 (> 60)
[2020-07-23] MEDS: Multivit/Ca/Min/Fe/FA 1 TAB TABLET PO SCH (07:58)
[2020-07-23] MEDS: Cyanocobalamin (B-12) 1,000 MCG TABLET PO SCH (07:59)
[2020-07-23] MEDS: Pyridoxine (B-6) 50 MG TABLET PO SCH (07:59)
[2020-07-23] MEDS: Folic Acid 1 MG TABLET PO SCH (08:04)
[2020-07-23] MEDS: Dexamethasone Sodium Phos/PF 10 MG/ML VIAL IVP SCH (08:06)
[2020-07-23] MEDS: Fluticasone Propionate Nasal 50 MCG/SPRAY BOTTLE NS SCH (08:50)
[2020-07-23] MEDS: Furosemide 40 MG/4 ML VIAL IVP SCH ×2 (09:07→20:20)
[2020-07-23] MEDS: OWN INSULIN PUMP PO SCH (19:30)
[2020-07-23] MEDS: lisinopriL 5 MG TABLET PO SCH (20:20)
[2020-07-24] MEDS: Acetaminophen 325 MG TABLET PO PRN (03:31)
[2020-07-24] MEDS: Levalbuterol 1 PUFF INHALER IH SCH ×4 (03:40→22:15)
[2020-07-24] MEDS: Ipratropium 1 PUFF INHALER IH SCH ×4 (03:41→22:15)
[2020-07-24] MEDS: *HR* Enoxaparin 40 MG/0.4 ML SYRINGE SQ SCH (05:21)
[2020-07-24] MEDS: Pyridoxine (B-6) 50 MG TABLET PO SCH (08:17)
[2020-07-24] MEDS: Folic Acid 1 MG TABLET PO SCH (08:19)
[2020-07-24] MEDS: Multivit/Ca/Min/Fe/FA 1 TAB TABLET PO SCH (08:19)
[2020-07-24] MEDS: Dexamethasone Sodium Phos/PF 10 MG/ML VIAL IVP SCH (08:20)
[2020-07-24] MEDS: Cyanocobalamin (B-12) 1,000 MCG TABLET PO SCH (08:20)
[2020-07-24] MEDS: Furosemide 40 MG/4 ML VIAL IVP SCH (08:21)
[2020-07-24] MEDS: Fluticasone Propionate Nasal 50 MCG/SPRAY BOTTLE NS SCH (10:58)
[2020-07-24 12:21] LABS: Hematocrit 43.8 % (35.3-44.9); Hemoglobin 14.9 g/dL (11.5-15.4); Mean Corpuscular Hemoglobin 29.3 pg (28.0-33.3); Mean Corpuscular Volume 86.1 fL (83.0-100.0); Mean Platelet Volume 10.8 fL (9.4-12.4); Platelet Count 331 K/mcL (140-400); Red Blood Count 5.09 M/mcL (3.82-4.97); Red Cell Distribution Width 11.9 % (11.5-14.5)
[2020-07-24 12:22] LABS: White Blood Count 16.1 K/mcL (4.3-11.1)
[2020-07-24 12:38] LABS: Calcium 8.8 mg/dL (8.6-10.3); Potassium 5.1 mEq/L (3.5-5.1)
[2020-07-24] MEDS: Insulin DETEMIR 100 UNIT/ML X5UNITS SQ SCH (18:14)
[2020-07-24] MEDS: OWN INSULIN PUMP PO SCH (18:15)
[2020-07-25 01:51] LABS: Hematocrit 42.4 % (35.3-44.9); Mean Corpuscular Hemoglobin 28.4 pg (28.0-33.3); Mean Platelet Volume 10.3 fL (9.4-12.4); Platelet Count 341 K/mcL (140-400); Red Blood Count 4.93 M/mcL (3.82-4.97); Red Cell Distribution Width 11.8 % (11.5-14.5); White Blood Count 11.6 K/mcL (4.3-11.1)
[2020-07-25 02:08] LABS: BUN/Creatinine Ratio 49 (6-26); Blood Urea Nitrogen 34 mg/dL (8-23); Calcium 8.9 mg/dL (8.6-10.3); Carbon Dioxide 28 mEq/L (23-29); Chloride 95 mEq/L (98-107); Glucose 236 mg/dL (70-105); Osmolality,Calculated 285 (280-300); Potassium 5.3 mEq/L (3.5-5.1); Sodium 130 mEq/L (136-145); eGFR For African Americans > 60 (> 60); eGFR For Non-African Americans > 60 (> 60)
[2020-07-25] MEDS: Ipratropium 1 PUFF INHALER IH SCH ×4 (03:35→20:07)
[2020-07-25] MEDS: Levalbuterol 1 PUFF INHALER IH SCH ×4 (03:36→20:07)
[2020-07-25] MEDS: *HR* Enoxaparin 40 MG/0.4 ML SYRINGE SQ SCH (05:15)
[2020-07-25] MEDS: Pyridoxine (B-6) 50 MG TABLET PO SCH (08:05)
[2020-07-25] MEDS: Multivit/Ca/Min/Fe/FA 1 TAB TABLET PO SCH (08:05)
[2020-07-25] MEDS: Cyanocobalamin (B-12) 1,000 MCG TABLET PO SCH (08:06)
[2020-07-25] MEDS: Dexamethasone Sodium Phos/PF 10 MG/ML VIAL IVP SCH (08:06)
[2020-07-25] MEDS: Folic Acid 1 MG TABLET PO SCH (08:06)
[2020-07-25] MEDS: Fluticasone Propionate Nasal 50 MCG/SPRAY BOTTLE NS SCH (08:26)
[2020-07-25] MEDS: Insulin DETEMIR 100 UNIT/ML X5UNITS SQ SCH (08:26)
[2020-07-25] MEDS: OWN INSULIN PUMP PO SCH (17:08)
[2020-07-25] MEDS: Acetaminophen 325 MG TABLET PO PRN (20:05)
[2020-07-26 01:29] LABS: Hematocrit 41.8 % (35.3-44.9); Hemoglobin 14.1 g/dL (11.5-15.4); Mean Corpuscular HGB Conc 33.7 g/dL (31.6-35.5); Mean Platelet Volume 10.3 fL (9.4-12.4); Platelet Count 326 K/mcL (140-400); Red Blood Count 4.86 M/mcL (3.82-4.97); Red Cell Distribution Width 11.8 % (11.5-14.5); White Blood Count 10.3 K/mcL (4.3-11.1)
[2020-07-26 01:46] LABS: BUN/Creatinine Ratio 46 (6-26); Blood Urea Nitrogen 31 mg/dL (8-23); Calcium 8.8 mg/dL (8.6-10.3); Carbon Dioxide 24 mEq/L (23-29); Chloride 97 mEq/L (98-107); Glucose 218 mg/dL (70-105); Osmolality,Calculated 281 (280-300); Potassium 4.9 mEq/L (3.5-5.1); Sodium 129 mEq/L (136-145); eGFR For African Americans > 60 (> 60); eGFR For Non-African Americans > 60 (> 60)
[2020-07-26] MEDS: Levalbuterol 1 PUFF INHALER IH SCH ×4 (03:47→19:48)
[2020-07-26] MEDS: Ipratropium 1 PUFF INHALER IH SCH ×4 (03:47→19:48)
[2020-07-26] MEDS: *HR* Enoxaparin 40 MG/0.4 ML SYRINGE SQ SCH (06:15)
[2020-07-26] MEDS: Insulin DETEMIR 100 UNIT/ML X5UNITS SQ SCH (08:28)
[2020-07-26] MEDS: Pyridoxine (B-6) 50 MG TABLET PO SCH (08:28)
[2020-07-26] MEDS: Folic Acid 1 MG TABLET PO SCH (08:28)
[2020-07-26] MEDS: Multivit/Ca/Min/Fe/FA 1 TAB TABLET PO SCH (08:28)
[2020-07-26] MEDS: Fluticasone Propionate Nasal 50 MCG/SPRAY BOTTLE NS SCH (08:29)
[2020-07-26] MEDS: Cyanocobalamin (B-12) 1,000 MCG TABLET PO SCH (08:29)
[2020-07-26] MEDS: Dexamethasone Sodium Phos/PF 10 MG/ML VIAL IVP SCH (08:55)
[2020-07-26] MEDS: OWN INSULIN PUMP PO SCH (17:22)
[2020-07-27] MEDS: Acetaminophen 325 MG TABLET PO PRN (01:04)
[2020-07-27 02:39] LABS: Fibrinogen 405 mg/dL (169-393)
[2020-07-27 02:40] LABS: Basophils % 0.1 %; D-Dimer 1225 ng/mLFEU (0-500); Eosinophils % 0.1 %; Hematocrit 39.3 % (35.3-44.9); Hemoglobin 13.1 g/dL (11.5-15.4); Immature Granulocytes % 0.7 % (0-4); Lymphocytes # 0.6 K/mcL (0.6-4.6); Lymphocytes % 6.2 %; Mean Corpuscular HGB Conc 33.3 g/dL (31.6-35.5); Mean Corpuscular Hemoglobin 28.2 pg (28.0-33.3); Mean Corpuscular Volume 84.5 fL (83.0-100.0); Mean Platelet Volume 10.3 fL (9.4-12.4); Monocytes # 0.4 K/mcL (0.0-1.3); Monocytes % 4.3 %; Neutrophils # 8.9 K/mcL (1.6-8.9); Platelet Count 312 K/mcL (140-400); Red Blood Count 4.65 M/mcL (3.82-4.97); Red Cell Distribution Width 11.7 % (11.5-14.5); Segmented Neutrophils % 88.6 %; White Blood Count 10.1 K/mcL (4.3-11.1)
[2020-07-27 02:51] LABS: BUN/Creatinine Ratio 40 (6-26); Blood Urea Nitrogen 27 mg/dL (8-23); Calcium 8.5 mg/dL (8.6-10.3); Carbon Dioxide 29 mEq/L (23-29); Chloride 95 mEq/L (98-107); Glucose 179 mg/dL (70-105); Osmolality,Calculated 276 (280-300); Potassium 4.7 mEq/L (3.5-5.1); Sodium 128 mEq/L (136-145); eGFR For African Americans > 60 (> 60); eGFR For Non-African Americans > 60 (> 60)
[2020-07-27] MEDS: Ipratropium 1 PUFF INHALER IH SCH ×3 (03:05→16:03)
[2020-07-27] MEDS: Levalbuterol 1 PUFF INHALER IH SCH ×3 (03:06→16:03)
[2020-07-27] MEDS: *HR* Enoxaparin 40 MG/0.4 ML SYRINGE SQ SCH (05:27)
[2020-07-27] MEDS: Multivit/Ca/Min/Fe/FA 1 TAB TABLET PO SCH (09:40)
[2020-07-27] MEDS: Dexamethasone Sodium Phos/PF 10 MG/ML VIAL IVP SCH (09:40)
[2020-07-27] MEDS: Folic Acid 1 MG TABLET PO SCH (09:40)
[2020-07-27] MEDS: Pyridoxine (B-6) 50 MG TABLET PO SCH (09:40)
[2020-07-27] MEDS: Cyanocobalamin (B-12) 1,000 MCG TABLET PO SCH (09:40)
[2020-07-27] MEDS: Fluticasone Propionate Nasal 50 MCG/SPRAY BOTTLE NS SCH (10:04)
[2020-07-27] MEDS: Insulin DETEMIR 100 UNIT/ML X5UNITS SQ SCH (10:05)
[2020-07-27 11:36] VITALS: BP 110/76
== END 2020-07-27 16:12 | disposition home or self-care (01) | DRG 177 ==
LOC: 2NENU 15:51 → EMEROOARM 15:51 → 2NENU 20:56 → SUATTDRO 07-16 15:07
PROVIDERS: ADMIT Internal Medicine; ATTEND Internal Medicine

== ENCOUNTER 2021-11-23 11:16 | Inpatient (IN) ==
[2021-11-23] MEDS ORDERED: Ondansetron 4 MG/2 ML VIAL IVP ONE (12:49)
[2021-11-23 13:25] LABS: Basophils # 0.1 K/mcL (0.0-0.2); Basophils % 0.4 %; Hematocrit 42.1 % (35.3-44.9); Hemoglobin 12.6 g/dL (11.5-15.4); Immature Granulocytes % 0.8 % (0-4); Lymphocytes # 0.9 K/mcL (0.6-4.6); Mean Corpuscular HGB Conc 29.9 g/dL (31.6-35.5); Mean Corpuscular Hemoglobin 28.8 pg (28.0-33.3); Mean Platelet Volume 11.5 fL (9.4-12.4); Monocytes # 0.9 K/mcL (0.0-1.3); Monocytes % 3.9 %; Neutrophils # 19.9 K/mcL (1.6-8.9); Platelet Count 310 K/mcL (140-400); Red Blood Count 4.37 M/mcL (3.82-4.97); Red Cell Distribution Width 13.4 % (11.5-14.5); Segmented Neutrophils % 90.9 %; White Blood Count 21.9 K/mcL (4.3-11.1)
[2021-11-23 13:28] LABS: VBG HCO3 11 mEq/L (21-27); VBG PCO2 34 mmHg (41-51); VBG PH 7.13 pH Units (7.32-7.42); VBG PO2 67 mmHg (25-50)
[2021-11-23 13:31] LABS: Mean Corpuscular Volume 96.3 fL (83.0-100.0)
[2021-11-23] MEDS: 0.9 % Sodium Chloride 1,000 ML IVC SCH ×3 (13:33→17:24)
[2021-11-23 14:04] LABS: Calcium 9.4 mg/dL (8.6-10.3)
[2021-11-23] MEDS ORDERED: *HR* Dextrose 50 % in Water (Syg) 50 ML SYRINGE IVP PRN ×2 (14:20→23:27)
[2021-11-23] MEDS ORDERED: Ondansetron 4 MG/2 ML VIAL IVP PRN (15:34)
[2021-11-23] MEDS ORDERED: Naloxone 0.4 MG/ML INJ IVP PRN (15:34)
[2021-11-23] MEDS ORDERED: D5% in 0.45% NACL w KCl 20 MEQ/1,000 ML MLS IVC PRN (15:35)
[2021-11-23] MEDS ORDERED: D5% in 0.45% NACL 1,000 ML IVC PRN (15:35)
[2021-11-23] MEDS ORDERED: Sodium Bicarbonate 75 MEQ in 0.45 % Sodium Chloride 1,000 ML IVC SCH (15:40)
[2021-11-23] MEDS: Pantoprazole 40 MG VIAL IVP SCH (17:03)
[2021-11-23] MEDS: Acetaminophen 325 MG TABLET PO PRN (17:47)
[2021-11-23 18:16] LABS: Calcium 7.5 mg/dL (8.6-10.3); Potassium 4.1 mEq/L (3.5-5.1)
[2021-11-23] MEDS: *HR* Heparin 5,000 UNIT/ML VIAL SQ SCH (22:10)
[2021-11-23 22:11] LABS: Calcium 7.4 mg/dL (8.6-10.3); Potassium 4.3 mEq/L (3.5-5.1)
[2021-11-24 02:15] LABS: VBG HCO3 17 mEq/L (21-27); VBG PCO2 39 mmHg (41-51); VBG PH 7.24 pH Units (7.32-7.42); VBG PO2 122 mmHg (25-50)
[2021-11-24 02:29] LABS: Basophils % 0.1 %; Hematocrit 31.8 % (35.3-44.9); Immature Granulocytes % 0.7 % (0-4); Lymphocytes # 0.7 K/mcL (0.6-4.6); Mean Corpuscular HGB Conc 31.4 g/dL (31.6-35.5); Mean Corpuscular Hemoglobin 28.6 pg (28.0-33.3); Mean Corpuscular Volume 90.9 fL (83.0-100.0); Mean Platelet Volume 11.2 fL (9.4-12.4); Monocytes # 0.1 K/mcL (0.0-1.3); Platelet Count 227 K/mcL (140-400); Red Cell Distribution Width 13.7 % (11.5-14.5); Segmented Neutrophils % 93.2 %; White Blood Count 13.9 K/mcL (4.3-11.1)
[2021-11-24 02:35] LABS: Calcium 7.3 mg/dL (8.6-10.3); Magnesium 1.9 mg/dL (1.6-2.6); Potassium 5.2 mEq/L (3.5-5.1)
[2021-11-24] MEDS: 0.9 % Sodium Chloride w KCl 20 MEQ/1,000 ML MLS IVC SCH ×4 (03:44→05:18)
[2021-11-24] MEDS: 0.9 % Sodium Chloride 1,000 ML IVC SCH ×5 (03:45→19:54)
[2021-11-24 06:24] LABS: VBG HCO3 23 mEq/L (21-27); VBG PCO2 50 mmHg (41-51); VBG PH 7.27 pH Units (7.32-7.42); VBG PO2 68 mmHg (25-50)
[2021-11-24] MEDS: Pantoprazole 40 MG VIAL IVP SCH ×2 (06:24→18:56)
[2021-11-24] MEDS: *HR* Heparin 5,000 UNIT/ML VIAL SQ SCH ×3 (06:24→20:07)
[2021-11-24 06:42] LABS: Calcium 7.5 mg/dL (8.6-10.3); Potassium 4.5 mEq/L (3.5-5.1)
[2021-11-24 09:54] LABS: VBG HCO3 22 mEq/L (21-27); VBG PCO2 45 mmHg (41-51); VBG PH 7.31 pH Units (7.32-7.42); VBG PO2 119 mmHg (25-50)
[2021-11-24 10:13] LABS: Calcium 7.4 mg/dL (8.6-10.3); Potassium 4.2 mEq/L (3.5-5.1)
[2021-11-24] MEDS ORDERED: D5% in Water 1,000 ML IVC PRN (10:45)
[2021-11-24] MEDS ORDERED: *HR* Dextrose 50 % in Water (Syg) 50 ML SYRINGE IVP PRN (10:45)
[2021-11-24] MEDS ORDERED: 0.9 % Sodium Chloride 1,000 ML ONE (10:45)
[2021-11-24] MEDS ORDERED: Dextrose 4 GM Chewable Tablets PO PRN ×2 (10:45)
[2021-11-24] MEDS ORDERED: Insulin DETEMIR 100 UNIT/ML X5UNITS SUBQ ONE (15:00)
[2021-11-24] MEDS ORDERED: Insulin DETEMIR 100 UNIT/ML X5UNITS SUBQ SCH (15:15)
[2021-11-24] MEDS: Insulin LISPRO 300 UNITS/3 ML VIAL SUBQ SCH ×2 (16:54→19:55)
[2021-11-24] MEDS ORDERED: Insulin LISPRO 300 UNITS/3 ML VIAL SUBQ ONE (17:09)
[2021-11-24] MEDS: Insulin DETEMIR 100 UNIT/ML X5UNITS SUBQ SCH (19:55)
[2021-11-24] MEDS: Acetaminophen 325 MG TABLET PO PRN (20:12)
[2021-11-25 03:27] LABS: Basophils % 0.3 %; Eosinophils # 0.1 K/mcL (0.0-0.6); Eosinophils % 0.7 %; Hematocrit 31.3 % (35.3-44.9); Hemoglobin 9.9 g/dL (11.5-15.4); Immature Granulocytes % 0.4 % (0-4); Lymphocytes % 10.6 %; Mean Corpuscular HGB Conc 31.6 g/dL (31.6-35.5); Mean Corpuscular Hemoglobin 28.4 pg (28.0-33.3); Mean Corpuscular Volume 89.9 fL (83.0-100.0); Mean Platelet Volume 10.4 fL (9.4-12.4); Monocytes # 0.4 K/mcL (0.0-1.3); Monocytes % 3.6 %; Neutrophils # 8.1 K/mcL (1.6-8.9); Platelet Count 192 K/mcL (140-400); Red Blood Count 3.48 M/mcL (3.82-4.97); Red Cell Distribution Width 14.2 % (11.5-14.5); Segmented Neutrophils % 84.4 %; White Blood Count 9.6 K/mcL (4.3-11.1)
[2021-11-25 03:43] LABS: BUN/Creatinine Ratio 29 (6-26); Blood Urea Nitrogen 23 mg/dL (8-23); Calcium 7.6 mg/dL (8.6-10.3); Carbon Dioxide 22 mEq/L (23-29); Chloride 112 mEq/L (98-107); Glucose 80 mg/dL (70-105); Osmolality,Calculated 291 (280-300); Sodium 139 mEq/L (136-145); eGFR For African Americans > 60 (> 60); eGFR For Non-African Americans > 60 (> 60)
[2021-11-25] MEDS: Pantoprazole 40 MG VIAL IVP SCH ×2 (05:49→18:09)
[2021-11-25] MEDS: *HR* Heparin 5,000 UNIT/ML VIAL SQ SCH ×3 (05:49→21:01)
[2021-11-25] MEDS: Insulin LISPRO 300 UNITS/3 ML VIAL SUBQ SCH ×4 (07:57→21:00)
[2021-11-25] MEDS: 0.9 % Sodium Chloride 1,000 ML IVC SCH ×2 (09:45→18:09)
[2021-11-25] MEDS: Insulin DETEMIR 100 UNIT/ML X5UNITS SUBQ SCH (21:00)
[2021-11-26] MEDS: 0.9 % Sodium Chloride 1,000 ML IVC SCH (02:21)
[2021-11-26 04:42] VITALS: TEMP 97.7
[2021-11-26] MEDS: Pantoprazole 40 MG VIAL IVP SCH (05:14)
[2021-11-26] MEDS: *HR* Heparin 5,000 UNIT/ML VIAL SQ SCH (05:14)
[2021-11-26 05:45] LABS: Basophils % 0.5 %; Eosinophils # 0.3 K/mcL (0.0-0.6); Eosinophils % 6.3 %; Hematocrit 33.7 % (35.3-44.9); Hemoglobin 11.1 g/dL (11.5-15.4); Immature Granulocytes % 0.2 % (0-4); Lymphocytes # 1.2 K/mcL (0.6-4.6); Lymphocytes % 27.1 %; Mean Corpuscular HGB Conc 32.9 g/dL (31.6-35.5); Mean Corpuscular Hemoglobin 29.4 pg (28.0-33.3); Mean Corpuscular Volume 89.2 fL (83.0-100.0); Mean Platelet Volume 10.6 fL (9.4-12.4); Monocytes # 0.3 K/mcL (0.0-1.3); Monocytes % 6.7 %; Neutrophils # 2.6 K/mcL (1.6-8.9); Platelet Count 180 K/mcL (140-400); Red Blood Count 3.78 M/mcL (3.82-4.97); Red Cell Distribution Width 13.8 % (11.5-14.5); Segmented Neutrophils % 59.2 %
[2021-11-26 05:46] LABS: White Blood Count 4.3 K/mcL (4.3-11.1)
[2021-11-26 06:01] LABS: BUN/Creatinine Ratio 19 (6-26); Blood Urea Nitrogen 13 mg/dL (8-23); Calcium 8.4 mg/dL (8.6-10.3); Carbon Dioxide 27 mEq/L (23-29); Chloride 108 mEq/L (98-107); Glucose 155 mg/dL (70-105); Osmolality,Calculated 291 (280-300); Sodium 139 mEq/L (136-145); eGFR For African Americans > 60 (> 60); eGFR For Non-African Americans > 60 (> 60)
[2021-11-26] MEDS: Insulin LISPRO 300 UNITS/3 ML VIAL SUBQ SCH ×2 (08:56→12:58)
[2021-11-26 12:27] VITALS: BP 178/70; PULSE 79; O2SAT 98
== END 2021-11-26 13:40 | disposition home or self-care (01) | DRG 638 ==
LOC: EMEROOARM 11:16 → 2NNU 15:18 → SUATTDRO 15:18 → 2NNU 16:48
PROVIDERS: ADMIT Student in an Organized Health Care Education/Training Program; ATTEND Family Medicine